=== PATIENT | female | born 1935 | race Caucasian/White ===

== ENCOUNTER 2016-06-27 11:22 | Emergency (ER) | payer OTHER ==
[~2016-06-27] VITALS: Ht 160 cm; Wt 99.8 kg
[~2016-06-27 11:22] MED LIST: CHOL100013 PO; FELO5TAB PO; HYDR-2666 PO; HYDR25TA9 PO; LEVO75TA5 PO; LOPE2CAP PO; MELO7.5T5 PO; MULT-650 PO; NYST60PO TP; ONDA4TAB12 PO; OXYC1TAB7 PO; OXYC5TAB PO; POTA20TA4 PO; WARF4TAB PO
[2016-06-27] MEDS ORDERED: IV NORMAL SALINE 1000ML BAG 1,000 ML IV SCH (12:35)
--- NOTE | 2016-06-27 12:36 | EKG ---
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
--- NOTE | 2016-06-27 12:43 | ED.ADGEN ---
Past Medical History Past Medical History: Arthritis, Hypertension, Hypothyroid, Other Additional Past Medical Histor: PAC'S, GASTRITIS, osteoarthritis R. shoulder and knee Past Surgical History: Knee Replacement, Other Alcohol Use: None Drug Use: None Adult General Chief Complaint Chief Complaint: WEAKNESS/GENERALIZED HPI HPI Patient is a 81 year old female presents emergency department complaining of generalized weakness as well as nausea and vomiting. Patient has had several recent hospitalizations and still was not recovered enough to return home and normal functioning. She tells me that beginning last night she started with nausea and vomiting again. She denies any abdominal pain or nausea at the moment. She states that she is still having formed stools which is great relief to her considering her recent hospitalization for diarrhea. Patient denies any fevers, chills, cough, chest pain. She is very concerned about possibly being dehydrated. Review of Systems Review of Systems Constitutional: Denies fever or chills. [] Eyes: Denies change in visual acuity. [] HENT: Denies nasal congestion or sore throat. [] Respiratory: Denies cough or shortness of breath. [] Cardiovascular: Denies chest pain or edema. [] GI: Denies abdominal pain, nausea, vomiting, bloody stools or diarrhea. [] : Denies dysuria. [] Musculoskeletal: Denies back pain or joint pain. [] Integument: Denies rash. [] Neurologic: Denies headache, focal weakness or sensory changes. [] Endocrine: Denies polyuria or polydipsia. [] Lymphatic: Denies swollen glands. [] Psychiatric: Denies depression or anxiety. [] Current Medications Current Medications Current Medications Medications (Trade) Dose Ordered Sig/Rosetta Start Time Stop Time Status Last Admin Dose Admin Ceftriaxone Sodium (Rocephin 1gm Ivpb For Omni) 50 ml @ 100 mls/hr 1X ONCE 06/27/16 13:30 06/27/16 13:59 DC 06/27/16 14:31 100 MLS/HR Sodium Chloride 1,000 ml @ 1,000 mls/hr Q1H 06/27/16 12:35 06/27/16 13:34 DC 06/27/16 13:04 1,000 MLS/HR Allergies Allergies Allergies Coded Allergies Type Severity Reaction Last Updated Verified influenza virus vaccine ts [id number] (36 mos+) Allergy Severe Shortness of Air 05/21/16 Yes Physical Exam Physical Exam Constitutional: Well developed, well nourished, no acute distress, non-toxic appearance. [] HENT: Normocephalic, atraumatic, bilateral external ears normal, oropharynx moist, no oral exudates, nose normal. [] Eyes: PERRLA, EOMI, conjunctiva normal, no discharge. [] Neck: Normal range of motion, no tenderness, supple, no stridor. [] Cardiovascular:Heart rate regular rhythm, no murmur [] Lungs & Thorax: Bilateral breath sounds clear to auscultation [] Abdomen: Bowel sounds normal, soft, no tenderness, no masses, no pulsatile masses. [] Skin: Warm, dry, no erythema, no rash. [] Back: No tenderness, no CVA tenderness. [] Extremities: No tenderness, no cyanosis, no clubbing, ROM intact, no edema. [] Neurologic: Alert and oriented X 3, normal motor function, normal sensory function, no focal deficits noted. [] Psychologic: Affect normal, judgement normal, mood normal. [] Current Patient Data Vital Signs Vital Signs Date Time Temp Pulse Resp B/P Pulse Ox O2 Delivery O2 Flow Rate FiO2 06/27/16 15:15 89 17 91/44 94 Nasal Cannula 2 06/27/16 11:30 99.7 99.7 Lab Values Laboratory Tests Test 06/27/16 11:45 06/27/16 12:15 Urine Collection Type Unknown Urine Color Kimberly Urine Clarity Cloudy Urine pH 5.5 Urine Specific [place] 1.020 Urine Protein Tracemg/dL (NEG-TRACE) Urine Glucose (UA) Negativemg/dL (NEG) Urine Ketones (Stick) Tracemg/dL (NEG) Urine Blood Moderate (NEG) Urine Nitrite Negative (NEG) Urine Bilirubin Small (NEG) Urine Urobilinogen Dipstick 0.2mg/dL (0.2 mg/dL) Urine Leukocyte Esterase Large (NEG) Urine RBC 3-5/HPF (0-2) Urine WBC >40/HPF (0-4) Urine Bacteria Many/HPF (0-FEW) Urine Mucus Slight/LPF White Blood Count 31.1x10^3/uL (4.0-11.0) H Red Blood Count 4.03x10^6/uL (3.50-5.40) Hemoglobin 10.1g/dL (12.0-15.5) L Hematocrit 32.1% (36.0-47.0) L Mean Corpuscular Volume 80fL (79-100) Mean Corpuscular Hemoglobin 25pg (25-35) Mean Corpuscular Hemoglobin Concent 32g/dL (31-37) Red Cell Distribution Width 16.3% (11.5-14.5) H Platelet Count 418x10^3/uL (140-400) H Neutrophils (%) (Auto) 89% (31-73) H Lymphocytes (%) (Auto) 4% (24-48) L Monocytes (%) (Auto) 7% (0-9) Eosinophils (%) (Auto) 0% (0-3) Basophils (%) (Auto) 0% (0-3) Neutrophils # (Auto) 27.6x10^3uL (1.8-7.7) H Lymphocytes # (Auto) 1.2x10^3/uL (1.0-4.8) Monocytes # (Auto) 2.2x10^3/uL (0.0-1.1) H Eosinophils # (Auto) 0.0x10^3/uL (0.0-0.7) Basophils # (Auto) 0.1x10^3/uL (0.0-0.2) Segmented Neutrophils % 77% (35-66) H Band Neutrophils % 14% (0-9) H Lymphocytes % 4% (24-48) L Monocytes % 4% (0-10) Basophils % 1% (0-3) Toxic Granulation Mod Toxic Vacuolation Mod Platelet Estimate Increased (ADEQUATE) Sodium Level 135mmol/L (136-145) L Potassium Level 4.0mmol/L (3.5-5.1) Chloride Level 95mmol/L (98-107) L Carbon Dioxide Level 30mmol/L (21-32) Anion Gap 10 (6-14) Blood Urea Nitrogen 24mg/dL (7-20) H Creatinine 1.5mg/dL (0.6-1.0) H Estimated GFR (Cockcroft-Gault) 33.5 Glucose Level 93mg/dL (70-99) Calcium Level 8.3mg/dL (8.5-10.1) L Total Bilirubin 0.5mg/dL (0.2-1.0) Direct Bilirubin 0.1mg/dL (0.0-0.2) Aspartate Amino Transferase (AST) 20U/L (15-37) Alanine Aminotransferase (ALT) 18U/L (14-59) Alkaline Phosphatase 120U/L (46-116) H Troponin I Quantitative 0.021ng/mL (0.000-0.055) Total Protein 6.1g/dL (6.4-8.2) L Albumin 2.5g/dL (3.4-5.0) L Laboratory Tests 06/27/16 12:15 Laboratory Tests 06/27/16 12:15 EKG EKG EKG interpreted by me, normal sinus rhythm, 97 beats for minute, leftward axis, no ST segment elevation. [] Radiology/Procedures Radiology/Procedures [] Course & Med Decision Making Course & Med Decision Making Pertinent Labs and Imaging studies reviewed. (See chart for details) The patient's workup here demonstrates a urinary tract infection. She does feel much better after IV fluids. She is requesting to be discharged home and to treat her urinary tract infection as an outpatient. I do not find this to be unreasonable. I did start her with a dose of Rocephin here prior to discharge. [] Dragon Disclaimer Dragon Disclaimer This electronic medical record was generated, in whole or in part, using a voice recognition dictation system. AMIRT JC MD Jun 27, 2016 12:43
[2016-06-27 12:51] LABS: BASO # 0.1 x10^3/uL (0.0-0.2); BASO % 0 % (0-3); EOS % 0 % (0-3); HEMATOCRIT 32.1 % (36.0-47.0); HEMOGLOBIN 10.1 g/dL (12.0-15.5); LYMPH # 1.2 x10^3/uL (1.0-4.8); LYMPH % 4 % (24-48); MEAN CORPUSCULAR HEMOGLOBIN 25 pg (25-35); MEAN CORPUSCULAR HGB CONC 32 g/dL (31-37); MEAN CORPUSCULAR VOLUME 80 fL (79-100); MONO % 7 % (0-9); NEUT % 89 % (31-73); PLATELET COUNT 418 x10^3/uL (140-400); RED BLOOD COUNT 4.03 x10^6/uL (3.50-5.40); RED CELL DISTRIBUTION WIDTH 16.3 % (11.5-14.5); WHITE BLOOD COUNT 31.1 x10^3/uL (4.0-11.0)
[2016-06-27 13:00] LABS: BILIRUBIN,URINE SMALL (NEG); GLUCOSE,URINE NEGATIVE (NEG); NITRITE,URINE NEGATIVE (NEG); PH,URINE 5.5; UROBILINOGEN,URINE 0.2 mg/dL (0.2 mg/dL)
[2016-06-27 13:03] LABS: CALCIUM 8.3 mg/dL (8.5-10.1); CREATININE 1.5 mg/dL (0.6-1.0); GFR 33.5
[2016-06-27 13:09] LABS: ALBUMIN 2.5 g/dL (3.4-5.0); DIRECT BILIRUBIN 0.1 mg/dL (0.0-0.2); TOTAL BILIRUBIN 0.5 mg/dL (0.2-1.0); TOTAL PROTEIN 6.1 g/dL (6.4-8.2)
[2016-06-27 13:15] LABS: PROTEIN,URINE TRACE mg/dL (NEG-TRACE)
[2016-06-27 13:16] LABS: BACTERIA,URINE MANY /HPF (0-FEW); WBC,URINE >40 /HPF (0-4)
[2016-06-27] MEDS ORDERED: CEFTRIAXONE 1GM IVPB FOR OMNI 50 ML IV ONE (13:30)
[2016-06-27] MEDS ORDERED: SULF1TAB24 PO (14:15)
[2016-06-27 15:15] VITALS: BP 91/44
[2016-06-27 16:17] LABS: % BASOS 1 % (0-3)
[2016-06-27 16:19] LABS: PLT ESTIMATE INCREASED (ADEQUATE); TOXIC GRANULATION MOD; TOXIC VACUOLATION MOD
== END 2016-06-27 15:15 | disposition home or self-care (01) ==
LOC: ER 11:22
DX: N39.0 Urinary tract infection, site not specified (principal); M19.90 Unspecified osteoarthritis, unspecified site; I10 Essential (primary) hypertension; E03.9 Hypothyroidism, unspecified; Z88.7 Allergy status to serum and vaccine
CPT/HCPCS: 36415; 80048; 80076; 81001; 84484; 85007; 85027; 93005; 96361; 96365; 99285; J0690; J7030; 87086

== ENCOUNTER → 2016-07-18 | Outpatient (CLI) | payer OTHER ==
[2016-06-27 15:15] VITALS: BP 91/44
[~2016-07-18] MED LIST changes: +ALPR0.25 PO; +HYDR-79 PO; +NAPR500T3 PO; +SULF1TAB24 PO
[2016-07-19 01:59] LABS: BF CLARITY TURBID; BF COLOR YELLOW
== END | disposition home or self-care (01) ==
LOC: SPEC 17:53
PROVIDERS: ATTEND Nurse Practitioner Gerontology
DX: M70.41 Prepatellar bursitis, right knee (principal)
CPT/HCPCS: 87071; 87075; 87205; 89050

== ENCOUNTER 2016-08-05 05:55 | Day surgery (SDC) | payer OTHER ==
[~2016-08-05] VITALS: Ht 160 cm; Wt 100.2 kg
[~2016-08-05 05:55] MED LIST changes: -HYDR-79 PO
[2016-08-05] MEDS ORDERED: CEFAZOLIN 1GM IVPB FOR OMNI 50 ML IV ONE (06:00)
[2016-08-05] MEDS ORDERED: PROPOFOL 20 ML IV ONE (06:46)
[2016-08-05] MEDS ORDERED: ONDANSETRON PF 4 MG/2 ML VIAL. ONE (06:46)
[2016-08-05] MEDS ORDERED: DEXAMETHASONE SOD PHOS 20 MG/5 ML VIAL. ONE (06:46)
[2016-08-05] MEDS ORDERED: LIDOCAINE 2% 100 MG/5 ML DISP.SYRIN. ONE (06:46)
[2016-08-05] MEDS ORDERED: MORPHINE SULFATE 2 MG/ML DISP.SYRIN. IV PRN (07:00)
[2016-08-05] MEDS ORDERED: ONDANSETRON PF 4 MG/2 ML VIAL. IV PRN (07:00)
[2016-08-05] MEDS ORDERED: LIDOCAINE 1% 1 ML SYRINGE. ID PRN (07:00)
[2016-08-05] MEDS ORDERED: HYDROMORPHONE 2 MG/ML VIAL. IV PRN (07:00)
[2016-08-05] MEDS ORDERED: FENTANYL PF 100 MCG/2 ML VIAL. IV PRN ×2 (07:00)
[2016-08-05] MEDS ORDERED: IV RINGERS,LACTATED 1000ML 1,000 ML IV SCH (07:00)
[2016-08-05] MEDS ORDERED: PROCHLORPERAZINE 10 MG/2 ML VIAL. IV PRN (07:00)
[2016-08-05] MEDS ORDERED: FENTANYL PF 100 MCG/2 ML VIAL. ONE (07:09)
[2016-08-05] MEDS ORDERED: SEVOFLURANE 61 TO 120 MINUTES. IH ONE (07:10)
--- NOTE | 2016-08-05 07:38 | DISCH ---
DISCHARGE INSTRUCTIONS Condition on Discharge Condition on Discharge: Stable Activity After Discharge Activity Instructions for Disc: Resume previous activity Other activity instructions: WBAT no activity restrictions Wound Incision Care Wound/Incision Care: Change dressing Other wound/incision instructi: remove dressing in 2 days, may shower if no drainage Community/Resources/Services Services at Discharge: PT EVALUATE & TREAT Contacting the DRJennifer after DC Call your doctor for: Concerns you may have Follow-Up Follow up with: Jef 10 days GERALDO MURPHY MD Aug 05, 2016 07:38
[2016-08-05] MEDS ORDERED: HYDR-79 PO (07:42)
[2016-08-05] MEDS ORDERED: PHENYLEPHRINE in 0.9% NACL PF 1 MG/10 ML DISP.SYRIN. IV ONE (07:43)
[2016-08-05] MEDS ORDERED: methylPREDNISolone ACETATE 80 MG/ML VIAL. ONE (07:51)
[2016-08-05] MEDS ORDERED: BUPIVACAINE MPF 0.5% 30 ML VIAL. ONE (07:51)
[2016-08-05] MEDS ORDERED: SULF1TAB24 PO (08:37)
--- NOTE | 2016-08-05 08:40 | PDOC ---
BRIEF OPERATIVE NOTE Date: Aug 05, 2016 Pre-Op Diagnosis infected prepatellar bursa right knee Post-Op Diagnosis same Procedure Performed arthroscopic debridement right prepatellar bursa Surgeon Jef Anesthesia Type: General Blood Loss 5cc Specimens Obtained intraop cultures of bursa Findings above Complications none GERALDO MURPHY MD Aug 05, 2016 08:40
[2016-08-05 10:02] VITALS: BP 120/55
--- NOTE | 2016-08-05 13:32 | OP ---
DATE OF SURGERY: 08/05/2016 PREOPERATIVE DIAGNOSES: Infected prepatellar bursa, right knee and right shoulder pain and DJD. POSTOPERATIVE DIAGNOSES: Infected prepatellar bursa, right knee and right shoulder pain and DJD. PROCEDURE: Include an arthroscopic irrigation and debridement of right prepatellar bursa and injection, right glenohumeral joint. SURGEON: Kenji Fuchs M.D. ANESTHESIA: General. ESTIMATED BLOOD LOSS: 5 mL. COMPLICATIONS: None. OPERATIVE INDICATIONS: The patient is a 81-year-old female who underwent fixation of a distal femur fracture on , she had recovered uneventfully with weightbearing as tolerated, but undergone a couple of subsequent hospital operations for respiratory issues and other nonrelated medical issues, recently within about 2 months or more postoperative had developed a little bit of swelling and drainage from her prepatellar bursa of her right knee, it is not painful, she can still bear weight, full range of motion of the knee, but this area was aspirated and she was placed on some oral antibiotics, but unfortunately had worsening of the prepatellar bursitis as she presented to the office, is concerned with the infection, although it is clearly not in the knee joint anatomically or clinically; however, I did describe the possibility of surgical treatment, typically arthroscopic treatment offers best visualization, both in terms of washing the area out, debriding any residual infected fluid and related synovial tissue and intraoperative cultures would be taken and she wishes to proceed with surgical evaluation and treatment and verbalizes understanding of risks, benefits, postoperative course. Initially due to anesthesia related concerns, she had preferred possibility of a regional block, but decided then to go to sleep on the day of surgery, again all her questions were answered. Consent was obtained and she wishes to proceed. OPERATIVE TECHNIQUE: The patient was identified, procedure verified, the patient placed in the supine position on the operating table. After adequate amounts of general anesthesia were administered, the right lower extremity was prepped and draped in standard sterile fashion with a thigh tourniquet, which was not inflated. After timeout was performed, patient and procedure identified and verified and arthroscopic portal was made anterior medial along her previous incision, which correspond to the area of her drainage from the prepatellar bursa. Cultures were obtained at that time, aerobic and anaerobic and were sent intraoperatively. A distal portal was made along the incision at the distal extent of the prepatellar bursa as well. On insertion of the arthroscope and floating the area with fluid, there was significant whitish inflammatory looking tissue that was flushed from the joint. The arthroscopic shaver was inserted and the synovial tissue and any infected fluid were thoroughly debrided. The shaver and viewing portal were then switched to ensure complete proximal debridement of the bursa. Synovectomy was performed of the entire bursa back to good bleeding healthy tissue with no devitalized tissue present, further thorough irrigation with arthroscopic fluid for a total of 6 L flushed through the knee during the process, this was an excisional debridement with the arthroscopic shaver to the level of prepatellar bursa. The arthroscopic fluid was then drained, nylon suture used to close the portals. Sterile dressings were applied. Attention was then turned to the right shoulder, which was sterilely prepped with ChloraPrep and 1 mL 80 mg/mL Depo-Medrol with 3 mL of 0.5% plain lidocaine were injected into the glenohumeral joint under an anterior approach. She was returned to recovery room in stable condition having tolerated the procedure well. KENJI FUCHS MD DR: JIMY/karen JOB#: [id number] / [id number] HANNAH Avina MD
== END 2016-08-05 10:11 | disposition home or self-care (01) ==
LOC: SURG 05:55
PROVIDERS: ATTEND Orthopaedic Surgery
DX: M19.011 Primary osteoarthritis, right shoulder (principal); M17.11 Unilateral primary osteoarthritis, right knee; M71.1 Other infective bursitis; E78.00 Pure hypercholesterolemia, unspecified; I10 Essential (primary) hypertension; F41.9 Anxiety disorder, unspecified; E03.9 Hypothyroidism, unspecified; E66.9 Obesity, unspecified; Z87.39 Personal history of other diseases of the musculoskeletal system and connective tissue; Z96.651 Presence of right artificial knee joint
CPT/HCPCS: 20610; 29877; 87071; 87075; 87205; 97161; J0690; J1040; J1100; J2405; J2704; J3010; J3490; J2370

== ENCOUNTER 2016-08-30 13:54 | Day surgery (SDC) | payer OTHER ==
[~2016-08-30] VITALS: Ht 160 cm; Wt 100.0 kg
[~2016-08-30 13:54] MED LIST changes: +CEFAZOLIN 1GM IVPB FOR OMNI 50 ML IV PRN; +FENTANYL PF 100 MCG/2 ML VIAL. IV PRN; +HYDR-79 PO; +IV RINGERS,LACTATED 1000ML 1,000 ML IV SCH; +LIDOCAINE 1% 1 ML SYRINGE. ID PRN; +ONDANSETRON PF 4 MG/2 ML VIAL. IV PRN; +PROCHLORPERAZINE 10 MG/2 ML VIAL. IV PRN
[2016-08-30] MEDS ORDERED: PROPOFOL 20 ML IV ONE (14:04)
[2016-08-30] MEDS ORDERED: ONDANSETRON PF 4 MG/2 ML VIAL. ONE (14:04)
[2016-08-30] MEDS ORDERED: DEXAMETHASONE SOD PHOS 20 MG/5 ML VIAL. ONE (14:04)
[2016-08-30] MEDS ORDERED: LIDOCAINE 2% 100 MG/5 ML SYRINGE. ONE (14:04)
[2016-08-30] MEDS ORDERED: FENTANYL PF 100 MCG/2 ML VIAL. ONE (14:05)
[2016-08-30] MEDS ORDERED: LACT1CAP8 PO (14:52)
[2016-08-30] MEDS ORDERED: CEFAZOLIN 2GM PREMIX 50 ML IV ONE (15:02)
[2016-08-30] MEDS ORDERED: EPHEDRINE PF IN SALINE 50 MG/5 ML DISP.SYRIN. IV ONE (16:13)
[2016-08-30] MEDS ORDERED: SEVOFLURANE 31 TO 60 MINUTES. IH ONE (16:44)
--- NOTE | 2016-08-30 17:10 | DISCH ---
DISCHARGE INSTRUCTIONS Condition on Discharge Condition on Discharge: Stable Activity After Discharge Activity Instructions for Disc: Resume previous activity Diet after Discharge Diet after Discharge: Regular Wound Incision Care Wound/Incision Care: Ice to area for comfort, Change dressing Other wound/incision instructi: may change dressing in 3 days, keep covered for shower Contacting the DRJennifer after DC Call your doctor for: Concerns you may have Follow-Up Follow up with: Jef 1 week GERALDO MURPHY MD Aug 30, 2016 17:10
[2016-08-30] MEDS: FENTANYL PF 100 MCG/2 ML VIAL. IV PRN ×3 (17:12→17:32)
--- NOTE | 2016-08-30 17:18 | PDOC ---
BRIEF OPERATIVE NOTE Date: Aug 30, 2016 Pre-Op Diagnosis refractory prepatellar bursitis Post-Op Diagnosis same with small communication to knee joint Procedure Performed I/d right knee prepatellar bursa and knee joint with cultures of each Surgeon Jef Anesthesia Type: General Blood Loss 25cc Specimens Obtained intraop cultures Findings above Complications none GERALDO MURPHY MD Aug 30, 2016 17:18
[2016-08-30] MEDS ORDERED: ONDANSETRON PF 4 MG/2 ML VIAL. IV PRN (18:15)
[2016-08-30] MEDS ORDERED: FENTANYL PF 100 MCG/2 ML VIAL. IV PRN ×2 (18:15)
[2016-08-30] MEDS ORDERED: HYDROCODON/IBUPROFEN 7.5/200MG TABLET. PO ONE (19:15)
[2016-08-30 19:35] VITALS: BP 132/56
--- NOTE | 2016-08-31 10:42 | OP ---
DATE OF SURGERY: 08/30/2016 PREOPERATIVE DIAGNOSIS: Persistent drainage from right prepatellar bursa with possible infection. POSTOPERATIVE DIAGNOSIS: Persistent drainage from right prepatellar bursa with possible infection with concern for communication to knee joint and prosthesis. PROCEDURE: First irrigation and debridement and cultures of patellar bursa and irrigation and debridement of right knee joint also with deep tissue cultures obtained. SURGEON: Kenji Fuchs M.D. ANESTHESIA: General. ESTIMATED BLOOD LOSS: 25 mL. COMPLICATIONS: None. OPERATIVE INDICATIONS: The patient is well known to me from fixation of a distal femoral shaft fracture ____ knee arthroplasty on the right on . She did appear to recover well from that injury and was weightbearing as tolerated. Her incision healed up without incident and continued to progress through physical therapy. She did have some other medical setbacks along the way and presented a little over 2 months out from the fracture and surgery with some drainage from her prepatellar bursa. It really did not appear to be red or necessarily infected in appearance. Some initial nonoperative management was carried out although she had persistent drainage. Subsequently, due to her persistent drainage and she had been put on through a course of antibiotics in the interim without success, an arthroscopic irrigation and debridement of the prepatellar bursa and bursectomy was carried out. At that time there was no significant concern for infection regarding her cultures and no evidence whatsoever of communication with her knee joint, the ____ arthroscopic portals went on to heal. She had a small area of persistent drainage at the center of the incision through a pinhole where some clear drainage and fibrinous exudate could be expressed. At her visit where this was happening, discussed alternatives with her. She had been on several course of antibiotics at that time and really is having no pain or symptoms whatsoever with the knee, was actually having pain in the other knee and her right shoulder, which had been symptomatic for some time, and both of which had been previously injected due to her symptoms. Nevertheless, despite additional nonoperative treatment with compression and dressings, she continued to have drainage, and I told her that I was concerned for the possibility of indolent infection and I think an additional operative procedure would be indicated as I do have concerns that we do not want to harbor any additional infection with the presence of a knee prosthesis present. She therefore agreed to proceed with surgical evaluation and treatment today. OPERATIVE TECHNIQUE: The patient was identified, procedure verified, patient placed in the supine position on the operating table. After adequate amounts of general anesthesia were administered, the right lower extremity was prepped and draped in standard sterile fashion. After timeout was performed, the patient and procedure identified and verified, an incision was made along the previous area of scar incorporating the draining pinhole area. Cultures were immediately obtained of the prepatellar bursa and the fibrinous exudate was thoroughly debrided sharply with rongeurs and any excess tissue removed. There was no devitalized tissue present or galileo evidence of infection. Thorough irrigation was carried out with normal saline solution and pulse lavage to thoroughly irrigate the area and then I very thoroughly probed for any possible communication to the knee joint. There was one soft area along the medial retinaculum of potential communication and therefore I underwent further irrigation with pulse lavage to clean the area of the bursas thoroughly as possible and avoid any transference into the knee joint itself and then debrided this area of the retinaculum as it was a potential path to the knee joint itself. The knee joint was then opened and separate deep tissue cultures were obtained. I really found no evidence of prosthetic loosening or gross contamination in the knee joint itself, certainly no devitalized tissue, odor or purulent-type drainage whatsoever. Thorough irrigation was carried out with normal saline solution and pulse lavage. The area was thoroughly explored and closure accomplished with PDS suture at the retinacular area, buried PDS subcutaneous, and nylon suture at the skin level. Sterile compressive dressings were applied. The patient was extubated and transferred to postop holding in stable condition having tolerated the procedure well. I did indicate to her and her sister who was with her to surgery today the findings of the possibility of potential infection of the prosthetic, that we would follow along cultures to really gain a better understanding of her situation and the alternatives and the tentative issue that at this time she really has a significant amount of metal that it would be necessary to be retained specifically while the distal femur fracture appears to be doing very well even in the situation of removing a prosthesis to eradicate infection if necessary, I would be very conscious in terms of removing the retrograde femoral nail at this time, but I do not think addressing one without the other would be efficacious. Therefore, again we may be facing some type of antibiotic course maybe even along with suppressive antibiotics depending on any results and discussing the alternatives regardless she tolerated the procedure well and was placed on Bactrim postoperatively as a precautionary measure. KENJI FUCHS MD DR: JIMY/karen JOB#: [id number] / [id number] HANNAH Avina MD
== END 2016-08-30 19:40 | disposition home or self-care (01) ==
LOC: SURG 13:54
PROVIDERS: ATTEND Orthopaedic Surgery
DX: M96.89 Other intraoperative and postprocedural complications and disorders of the musculoskeletal system (principal); E78.00 Pure hypercholesterolemia, unspecified; I10 Essential (primary) hypertension; E66.9 Obesity, unspecified; K21.9 Gastro-esophageal reflux disease without esophagitis; E03.9 Hypothyroidism, unspecified; F41.9 Anxiety disorder, unspecified; Z90.710 Acquired absence of both cervix and uterus
CPT/HCPCS: 27310; 87205; J0690; J0780; J1100; J2405; J2704; J3010; J7030

== ENCOUNTER 2016-12-09 06:15 | Observation (INO) | payer OTHER ==
[~2016-12-09] VITALS: Ht 160 cm; Wt 97.1 kg
[~2016-12-09 06:15] MED LIST changes: -CEFAZOLIN 1GM IVPB FOR OMNI 50 ML IV PRN; -FENTANYL PF 100 MCG/2 ML VIAL. IV PRN; -HYDR-2666 PO; +HYDR-2758 PO; -IV RINGERS,LACTATED 1000ML 1,000 ML IV SCH; +LACT1CAP8 PO; -LIDOCAINE 1% 1 ML SYRINGE. ID PRN; -ONDANSETRON PF 4 MG/2 ML VIAL. IV PRN; -PROCHLORPERAZINE 10 MG/2 ML VIAL. IV PRN; -WARF4TAB PO; +WARF4TAB68 PO
--- NOTE | 2016-12-09 06:18 | PHYS DOC ---
Past Medical History Past Medical History: Arthritis, Hypertension, Hypothyroid, Other Additional Past Medical Histor: PAC'S, GASTRITIS, osteoarthritis R. shoulder and knee Past Surgical History: Knee Replacement, Other Alcohol Use: None Drug Use: None Adult General Chief Complaint Chief Complaint: RECTAL BLEED [facility] HPI Patient is a 81 year old female who presents with rectal bleeding. She states she's had a history of this before and has a diverticulum that was bleeding a year ago in addition to internal and external hemorrhoids. She states 2 days ago she had a little bit of blood when she wiped it was bright red and then overnight she's had 7-9 bloody bowel movements with some clots in it. She states she's not had a lot of stool. She denies any abdominal pain nausea vomiting chest pain or shortness of breath. She denies any history of aspirin use. She states she's had colonoscopy around [address] Branch up and then last time she was admitted a year ago was seen by Dr. Shin. Review of Systems Review of Systems Constitutional: Denies fever or chills [] Eyes: Denies change in visual acuity, redness, or eye pain [] HENT: Denies nasal congestion or sore throat [] Respiratory: Denies cough or shortness of breath [] Cardiovascular: No additional information not addressed in HPI [] GI: Denies abdominal pain, nausea, vomiting, or diarrhea, positive for bloody stools[] : Denies dysuria or hematuria [] Musculoskeletal: Denies back pain or joint pain [] Integument: Denies rash or skin lesions [] Neurologic: Denies headache, focal weakness or sensory changes [] Endocrine: Denies polyuria or polydipsia [] Allergies Allergies Allergies Coded Allergies Type Severity Reaction Last Updated Verified influenza virus vaccine ts [id number] (36 mos,up) Allergy Severe Shortness of Air 08/29/16 Yes oxycodone Allergy Intermediate Itching 08/29/16 Yes Physical Exam Physical Exam Constitutional: Well developed, well nourished, no acute distress, non-toxic appearance. [] HENT: Normocephalic, atraumatic, bilateral external ears normal, oropharynx moist, no oral exudates, nose normal. [] Eyes: PERRLA, EOMI, conjunctiva normal, no discharge. [] Neck: Normal range of motion, no tenderness, supple, no stridor. [] Cardiovascular:Heart rate regular rhythm, no murmur [] Lungs & Thorax: Bilateral breath sounds clear to auscultation [] Abdomen/rectal exam: Bowel sounds normal, soft, no tenderness, no masses, no pulsatile masses. External hemorrhoids noted, normal tone, dark red blood without any stool noted on rectal exam Skin: Warm, dry, no erythema, no rash. [] Back: No tenderness, no CVA tenderness. [] Extremities: No tenderness, no cyanosis, no clubbing, ROM intact, no edema. [] Neurologic: Alert and oriented X 3, normal motor function, normal sensory function, no focal deficits noted. [] Psychologic: Affect normal, judgement normal, mood normal. [] Current Patient Data Vital Signs Vital Signs Date Time Temp Pulse Resp B/P (MAP) Pulse Ox O2 Delivery O2 Flow Rate FiO2 12/09/16 06:59 98 18 135/84 (101) 94 Room Air 12/09/16 06:37 98.3 98.3 Lab Values Laboratory Tests Test 12/09/16 06:18 12/09/16 06:30 12/09/16 06:45 White Blood Count 11.8 x10^3/uL (4.0-11.0) H Red Blood Count 3.94 x10^6/uL (3.50-5.40) Hemoglobin 9.5 g/dL (12.0-15.5) L Hematocrit 29.0 % (36.0-47.0) L Mean Corpuscular Volume 74 fL (79-100) L Mean Corpuscular Hemoglobin 24 pg (25-35) L Mean Corpuscular Hemoglobin Concent 33 g/dL (31-37) Red Cell Distribution Width 17.7 % (11.5-14.5) H Platelet Count 510 x10^3/uL (140-400) H Neutrophils (%) (Auto) 67 % (31-73) Lymphocytes (%) (Auto) 20 % (24-48) L Monocytes (%) (Auto) 10 % (0-9) H Eosinophils (%) (Auto) 2 % (0-3) Basophils (%) (Auto) 1 % (0-3) Neutrophils # (Auto) 7.9 x10^3uL (1.8-7.7) H Lymphocytes # (Auto) 2.3 x10^3/uL (1.0-4.8) Monocytes # (Auto) 1.2 x10^3/uL (0.0-1.1) H Eosinophils # (Auto) 0.3 x10^3/uL (0.0-0.7) Basophils # (Auto) 0.1 x10^3/uL (0.0-0.2) Stool Occult Blood Positive (NEG) Urine Collection Type Unknown Urine Color Yellow Urine Clarity Cloudy Urine pH 5.0 Urine Specific [place] >=1.030 Urine Protein Negative mg/dL (NEG-TRACE) Urine Glucose (UA) Negative mg/dL (NEG) Urine Ketones (Stick) Negative mg/dL (NEG) Urine Blood Negative (NEG) Urine Nitrite Negative (NEG) Urine Bilirubin Small (NEG) Urine Urobilinogen Dipstick 0.2 mg/dL (0.2 mg/dL) Urine Leukocyte Esterase Moderate (NEG) Urine RBC 0 /HPF (0-2) Urine WBC 11-20 /HPF (0-4) Urine Squamous Epithelial Cells Occ /LPF Urine Bacteria Moderate /HPF (0-FEW) Urine Hyaline Casts Moderate /HPF Urine Mucus Marked /LPF Prothrombin Time 13.4 SEC (11.7-14.0) Prothrombin Time INR 1.1 (0.8-1.1) PTT 33 SEC (24-38) Sodium Level 138 mmol/L (136-145) Potassium Level 3.7 mmol/L (3.5-5.1) Chloride Level 99 mmol/L (98-107) Carbon Dioxide Level 27 mmol/L (21-32) Anion Gap 12 (6-14) Blood Urea Nitrogen 27 mg/dL (7-20) H Creatinine 1.1 mg/dL (0.6-1.0) H Estimated GFR (Cockcroft-Gault) 47.9 Glucose Level 122 mg/dL (70-99) H Calcium Level 9.4 mg/dL (8.5-10.1) Total Bilirubin 0.3 mg/dL (0.2-1.0) Direct Bilirubin 0.1 mg/dL (0.0-0.2) Aspartate Amino Transferase (AST) 15 U/L (15-37) Alanine Aminotransferase (ALT) 13 U/L (14-59) L Alkaline Phosphatase 92 U/L (46-116) Total Protein 8.4 g/dL (6.4-8.2) H Albumin 3.2 g/dL (3.4-5.0) L Laboratory Tests 12/09/16 06:18 Laboratory Tests 12/09/16 06:45 EKG EKG [] Radiology/Procedures Radiology/Procedures [] Impressions: Lower GI bleed Course & Med Decision Making Course & Med Decision Making Pertinent Labs and Imaging studies reviewed. (See chart for details) Vitals are stable this time. Rectal exam shows darker blood, labs are stable. We 'll admit to Dr. Jordan and consult GI. Patient is requesting Dr. Fuchs for right shoulder pain that she's been following him for. Patient's agreeable to the plan and being admitted in stable condition at this time. Dragon Disclaimer Dragon Disclaimer This electronic medical record was generated, in whole or in part, using a voice recognition dictation system. Departure Departure Impression: Primary Impression: GI bleed Disposition: ADMITTED INPATIENT Admitting Physician: Flores Jordan Condition: STABLE Referrals: HANNAH ECHEVARRIA Jr, MD (PCP) Problem Qualifiers Primary Impression: GI bleed GI bleed type/associated pathology: unspecified gastrointestinal hemorrhage type Qualified Codes: K92.2 - Gastrointestinal hemorrhage, unspecified PARIS DE LA TORRE MD Dec 09, 2016 06:18
[2016-12-09 06:59] LABS: NEG OBC FOB NEG; POS OBC FOB POS
[2016-12-09 07:01] LABS: BILIRUBIN,URINE SMALL (NEG); GLUCOSE,URINE NEGATIVE (NEG); NITRITE,URINE NEGATIVE (NEG); PROTEIN,URINE NEGATIVE (NEG-TRACE); UROBILINOGEN,URINE 0.2 mg/dL (0.2 mg/dL)
[2016-12-09 07:05] LABS: BASO # 0.1 x10^3/uL (0.0-0.2); BASO % 1 % (0-3); EOS % 2 % (0-3); HEMOGLOBIN 9.5 g/dL (12.0-15.5); LYMPH # 2.3 x10^3/uL (1.0-4.8); LYMPH % 20 % (24-48); MEAN CORPUSCULAR HEMOGLOBIN 24 pg (25-35); MEAN CORPUSCULAR HGB CONC 33 g/dL (31-37); MEAN CORPUSCULAR VOLUME 74 fL (79-100); MONO % 10 % (0-9); NEUT % 67 % (31-73); PLATELET COUNT 510 x10^3/uL (140-400); RED BLOOD COUNT 3.94 x10^6/uL (3.50-5.40); RED CELL DISTRIBUTION WIDTH 17.7 % (11.5-14.5); WHITE BLOOD COUNT 11.8 x10^3/uL (4.0-11.0)
[2016-12-09 07:14] LABS: CALCIUM 9.4 mg/dL (8.5-10.1); CREATININE 1.1 mg/dL (0.6-1.0); GFR 47.9; POTASSIUM 3.7 mmol/L (3.5-5.1)
[2016-12-09 07:20] LABS: ALBUMIN 3.2 g/dL (3.4-5.0); DIRECT BILIRUBIN 0.1 mg/dL (0.0-0.2); TOTAL BILIRUBIN 0.3 mg/dL (0.2-1.0); TOTAL PROTEIN 8.4 g/dL (6.4-8.2)
[2016-12-09 07:31] LABS: BACTERIA,URINE MODERATE /HPF (0-FEW); RBC,URINE 0 /HPF (0-2); SQUAMOUS EPITHELIAL CELL,UR OCC /LPF
[2016-12-09 07:50] LABS: INR 1.1 (0.8-1.1); PROTHROMBIN TIME PATIENT 13.4 SEC (11.7-14.0)
[2016-12-09] MEDS: ONDANSETRON PF 4 MG/2 ML VIAL. IV PRN (08:01)
[2016-12-09 08:51] VITALS: BP 132/73
[2016-12-09] MEDS ORDERED: ONDANSETRON ODT 4 MG TAB.RAPDIS. PO PRN (09:00)
--- NOTE | 2016-12-09 09:37 | PDOC2 ---
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 H/ o possible diverticular bleed a couple years ago, evaluated by Dr. Kalie Moser at [facility] w/ follow-up EGD and colonoscopy by Dr. Serra in 09/2014 which showed esophagitis (suspect for Lucia's but she reports biopsies were negative), gastritis, and normal duodenum. Colonoscopy showed a moderate amount of soft stool, diverticulosis (left > right - she reports most significant in the descending colon), and external and internal hemorrhoids. Anusol suppositories were recommended but expensive, so she uses Tucks PRN. She returned to [facility] in 04/2016 for rectal bleeding precipitated by straining. Bleeding resolved spontaneously. We then saw her in 05/2016 for vomiting and diarrhea which began after eating a questionable hamburger. Stool studies were negative and diarrhea eventually resolved; she did call the office after discharge and was started on Colestipol (no longer needed). On this occasion came to ER for rectal bleeding since yesterday morning which again occurred after straining and passing large hard stools x 2 days despite use of Benefiber. She describes passage of bright red blood w/ gas yesterday morning which recurred around midnight and several more times during the night. Has rectal burning. She did pas gas twice in the ER w/o blood. ER notes indicate rectal exam revealed maroon blood. Denies abd pain. No n/v, SOA, CP. Did have weight loss at the first of the year. Has used Prilosec and Zantac PRN in the past, not needed now. Takes Naproxen 2 BID + Tylenol scheduled for arthritis pain. Hgb 9.5 (seems typically 9-10 range), BUN 27, Cr 1.1, hemoccult positive stool. PMH: PMH: diverticulosis, reflux esophagitis, gastritis, hemorrhoids, anal fissure, HTN, hypothyroidism, PACs, OA, anxiety, adhesiolysis, appendectomy, total hysterectomy, right knee replacement, bilateral cataract extraction, femur fracture/repair FH: Family History: Cancer (lung), CVA Social History: Smoke: No ALCOHOL: none Drugs: None ROS: GEN: Denies fevers, chills, sweats HEENT: Denies blurred vision, sore throat CV: Denies chest pain RESP: Denies shortness of air, cough GI: Per HPI : Denies hematuria, dysuria ENDO: Denies weight changes NEURO: Denies confusion, dizziness MSK: Denies weakness, joint pain/swelling SKIN: Denies jaundice, pruritus Vitals: Vitals: Vital Signs Date Time Temp Pulse Resp B/P (MAP) Pulse Ox O2 Delivery O2 Flow Rate FiO2 12/09/16 08:51 98.2 72 20 132/73 (92) 93 Room Air 98.2 Labs: Labs: Laboratory Tests Test 12/09/16 06:18 12/09/16 06:30 12/09/16 06:45 White Blood Count 11.8 x10^3/uL (4.0-11.0) Red Blood Count 3.94 x10^6/uL (3.50-5.40) Hemoglobin 9.5 g/dL (12.0-15.5) Hematocrit 29.0 % (36.0-47.0) Mean Corpuscular Volume 74 fL (79-100) Mean Corpuscular Hemoglobin 24 pg (25-35) Mean Corpuscular Hemoglobin Concent 33 g/dL (31-37) Red Cell Distribution Width 17.7 % (11.5-14.5) Platelet Count 510 x10^3/uL (140-400) Neutrophils (%) (Auto) 67 % (31-73) Lymphocytes (%) (Auto) 20 % (24-48) Monocytes (%) (Auto) 10 % (0-9) Eosinophils (%) (Auto) 2 % (0-3) Basophils (%) (Auto) 1 % (0-3) Neutrophils # (Auto) 7.9 x10^3uL (1.8-7.7) Lymphocytes # (Auto) 2.3 x10^3/uL (1.0-4.8) Monocytes # (Auto) 1.2 x10^3/uL (0.0-1.1) Eosinophils # (Auto) 0.3 x10^3/uL (0.0-0.7) Basophils # (Auto) 0.1 x10^3/uL (0.0-0.2) Stool Occult Blood Positive (NEG) Urine Collection Type Unknown Urine Color Yellow Urine Clarity Cloudy Urine pH 5.0 Urine Specific [place] >=1.030 Urine Protein Negative mg/dL (NEG-TRACE) Urine Glucose (UA) Negative mg/dL (NEG) Urine Ketones (Stick) Negative mg/dL (NEG) Urine Blood Negative (NEG) Urine Nitrite Negative (NEG) Urine Bilirubin Small (NEG) Urine Urobilinogen Dipstick 0.2 mg/dL (0.2 mg/dL) Urine Leukocyte Esterase Moderate (NEG) Urine RBC 0 /HPF (0-2) Urine WBC 11-20 /HPF (0-4) Urine Squamous Epithelial Cells Occ /LPF Urine Bacteria Moderate /HPF (0-FEW) Urine Hyaline Casts Moderate /HPF Urine Mucus Marked /LPF Prothrombin Time 13.4 SEC (11.7-14.0) Prothromb Time International Ratio 1.1 (0.8-1.1) Activated Partial Thromboplast Time 33 SEC (24-38) Sodium Level 138 mmol/L (136-145) Potassium Level 3.7 mmol/L (3.5-5.1) Chloride Level 99 mmol/L (98-107) Carbon Dioxide Level 27 mmol/L (21-32) Anion Gap 12 (6-14) Blood Urea Nitrogen 27 mg/dL (7-20) Creatinine 1.1 mg/dL (0.6-1.0) Estimated GFR (Cockcroft-Gault) 47.9 Glucose Level 122 mg/dL (70-99) Calcium Level 9.4 mg/dL (8.5-10.1) Total Bilirubin 0.3 mg/dL (0.2-1.0) Direct Bilirubin 0.1 mg/dL (0.0-0.2) Aspartate Amino Transf (AST/SGOT) 15 U/L (15-37) Alanine Aminotransferase (ALT/SGPT) 13 U/L (14-59) Alkaline Phosphatase 92 U/L (46-116) Total Protein 8.4 g/dL (6.4-8.2) Albumin 3.2 g/dL (3.4-5.0) Allergies: Coded Allergies: influenza virus vaccine ts [id number] (36 mos,up) (Verified Allergy, Severe , Shortness of Air, 08/29/16) oxycodone (Verified Allergy, Intermediate, Itching, 08/29/16) Medications: Current Medications Medications (Trade) Dose Ordered Sig/[place] Route PRN Reason Start Time Stop Time Status Last Admin Dose Admin Ondansetron HCl (Zofran) 4 mg PRN Q8HRS PRN IV NAUSEA/VOMITING 12/09/16 07:45 12/10/16 07:44 12/09/16 08:01 Imaging: Imaging: - PE: GEN: NAD HEENT: Atraumatic, PERRL LUNGS: CTAB anteriorly HEART: RRR ABD: NABS, S/ND/NT EXTREMITY: No edema SKIN: No rashes, no jaundice NEURO/PSYCH: A & O 3 A/P: A/P: Rectal bleeding -recurrent; first episode in 2014 thought to be diverticular, last episode in 2016 possibly hemorrhoidal -associated w/ straining -began yesterday morning w/ passing gas, seems resolved Anemia, hemoccult positive stool -Hgb 9.5 (not outside her typical range) -EGD and colonoscopy 2014: esophagitis (suspect for Lucia's but she reports biopsies were negative), gastritis, normal duodenum, moderate amount of soft stool, diverticulosis (left > right - she reports most significant in the descending colon), external/internal hemorrhoids NSAID use -- Recurrent rectal bleeding w/ last colonoscopy ~2 years ago. Possibly related to hemorrhoids considering significant straining and passage of hard stool. Has cardiac diet ordered - would keep to clears for now. Discussed regular use of Miralax/similar to prevent constipation. 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 MELANIE PAYNE Dec 09, 2016 09:37
--- NOTE | 2016-12-09 10:10 | PDOC1 ---
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 TAkes dilaudid 2 mgs PO prn for OA pain. NOw, Rt shoulder is bothersome, limited ROM, requested ortho , BRBP when wiping with tissue Today on floor, 3x flatus, no blood. Admits to known diverticulosis in the past, takes bowel regimen oTC prn only. Gi has seen, recommended daily regimen miralax.LAst decent BM of brown colored stool was 2 days ago SOme extrenal hemorrhoid on PRAMOD, Admitted as OBS - agree Past Medical History Cardiovascular: HTN Pulmonary: No pertinent hx GI: Diverticulosis, Other Heme/Onc: No pertinent hx Hepatobiliary: No pertinent hx Psych: No pertinent hx Musculoskeletal: Osteoarthritis Rheumatologic: No pertinent hx Infectious disease: No pertinent hx Renal/: No pertinent hx Endocrine: No pertinent hx, Hypothyroidism Past Surgical History Past Surgical History: Total knee replacement, Hysterectomy, Other Family History Family History: Cancer Social History Smoke: No ALCOHOL: none Drugs: None Current Problem List Problem List Problems Medical Problems: (1) GI bleed Status: Acute Problems: Current Medications Current Medications Current Medications Ondansetron HCl (Zofran) 4 mg PRN Q8HRS PRN IV NAUSEA/VOMITING Last administered on 12/09/16t 08:01; Start 12/09/16 at 07:45; Stop 12/10/16 at 07:44 Alprazolam (Xanax) 0.25 mg PRN Q6HRS PRN PO ANXIETY / AGITATION; Start at 09:00 Hydrochlorothiazide (Hydrodiuril) 25 mg DAILY PO ; Start 12/09/16 at 09:00 Levothyroxine Sodium (Synthroid) 75 mcg DAILYAC PO ; Start 12/09/16 at 09:00 Ondansetron HCl (Zofran Odt) 4 mg PRN Q8HRS PRN PO NAUSEA/VOMITING; Start 12/09 at 09:00 Vitamin D (Vitamin D3) 1,000 unit DAILY PO ; Start 12/09/16 at 09:00 Amlodipine Besylate (Norvasc) 5 mg DAILY PO ; Start 12/09/16 at 09:00 Lactobacillus Acidophilus (Bacid, Julissa-Bid) 1 tab DAILY PO ; Start 12/09/16 at 09:00 Multivitamins (Thera M Plus) 1 tab DAILY PO ; Start 12/09/16 at 09:00 Pantoprazole Sodium (Protonix) 40 mg DAILYAC PO ; Start 12/09/16 at 10:00 Polyethylene Glycol (miraLAX PACKET) 17 gm DAILY PO ; Start 12/09/16 at 10:00 Active Scripts Active Hydrocodone-Ibuprofen 7.5-200 (Hydrocodone/Ibuprofen) 1 Each Tablet 1 Tab PO PRN Q6HRS PRN Ondansetron Odt (Ondansetron) 4 Mg Tab.rapdis 4 Mg PO PRN Q8HRS PRN Reported Probiotic (Lactobacillus Combo No.11) 1 Each Cap.sprink 1 Each PO DAILY Xanax (Alprazolam) 0.25 Mg Tablet 0.25 Mg PO PRN Q6HRS PRN Centrum Silver Women Tablet (Multivits-Min/Iron/FA/Lutein) 1 Each Tablet 1 Each PO DAILY Vitamin D (Cholecalciferol (Vitamin D3)) 1,000 Unit Capsule 1 Cap PO DAILY Felodipine Er (Felodipine) 5 Mg Tab.er.24h 1 Tab PO DAILY Levothyroxine Sodium 75 Mcg Tablet 75 Mcg PO DAILYAC Hydrochlorothiazide Tablet (Hydrochlorothiazide) 25 Mg Tablet 25 Mg PO DAILY Allergies Allergies: Coded Allergies: influenza virus vaccine ts [id number] (36 mos,up) (Verified Allergy, Severe , Shortness of Air, 08/29/16) oxycodone (Verified Allergy, Intermediate, Itching, 08/29/16) ROS General: No: Chills, Night Sweats, Fatigue, Malaise, Appetite, Other PSYCHOLOGICAL ROS: No: Anxiety, Behavioral Disorder, Concentration difficultie , Decreased libido, Depression, Disorientation, Hallucinations, Hostility, Irritablity, Memory difficulties, Mood Swings, Obsessive thoughts, Physical abuse, Sexual abuse, Sleep disturbances, Suicidal ideation, Other Eyes: No Blurry vision, No Decreased vision, No Double vision, No Dry eyes, No Excessive tearing, No Eye Pain, No Itchy Eyes, No Loss of vision, No Photophobia , No Scotomata, No Uses contacts, No Uses glasses, No Other HEENT: No: Heacaches, Visual Changes, Hearing change, Nasal congestion, Nasal discharge, Oral lesions, Sinus pain, Sore Throat, Epistaxis, Sneezing, Snoring, Tinnitus, Vertigo, Vocal changes, Other ALLERGY AND IMMUNOLOGY: No: Hives, Insect Bite Sensitivity, Itchy/Watery Eyes, Nasal Congestion, Post Nasal Drip, Seasonal Allergies, Other Hematological and Lymphatic: No: Bleeding Problems, Blood Clots, Blood Transfusions, Brusing, Night Sweats, Pallor, Swollen Lymph Nodes, Other ENDOCRINE: No: Breast Changes, Galactorrhea, Hair Pattern Changes, Hot Flashes , Malaise/lethargy, Mood Swings, Palpitations, Polydipsia/polyuria, Skin Changes , Temperature Intolerance, Unexpected Weight Changes, Other Breast: No New/Changing Breast Lumps, No Nipple changes, No Nipple discharge, No Other Respiratory: No: Cough, Hemoptysis, Orthopnea, Pleuritic Pain, Shortness of breath, SOB with excertion, Sputum Changes, Stridor, Tachypnea, Wheezing, Other Cardiovascular: No Chest Pain, No Palpitations, No Orthopnea, No Paroxysmal Noc. Dyspnea, No Edema, No Lt Headedness, No Other Gastrointestinal: Yes Constipation, Yes Hematochezia Genitourinary: No Dysuria, No Frequency, No Incontinence, No Hematuria, No Retention, No Discharge, No Urgency, No Pain, No Flank Pain, No Other, No , No , No , No , No , No , No Musculoskeletal: Yes Joint Pain, Yes Joint Stiffness, Yes Pain In: (Rt shoulder ), Yes Swelling In: Neurological: No Behavorial Changes, No Bowel/Bladder ControlChng, No Confusion , No Dizziness, No Gait Disturbance, No Headaches, No Impaired Coord/balance, No Memory Loss, No Numbness/Tingling, No Seizures, No Speech Problems, No Tremors, No Visual Changes, No Weakness, No Other Skin: No Dry Skin, No Eczema, No Hair Changes, No Lumps, No Mole Changes, No Mottling, No Nail Changes, No Pruritus, No Rash, No Skin Lesion Changes, No Other, No Acne Physical Exam General: Alert, Oriented X3, Cooperative, No acute distress HEENT: Atraumatic, PERRLA, EOMI, Mucous membr. moist/pink Lungs: Clear to auscultation, Normal air movement Heart: S1S2, RRR, no thrills, no rubs, no gallops Cardiovascular: S1, S2 Breasts: Normal, Rt breast nml w/o mass, Lt breast nml w/o mass, Nipples normal Abdomen: Normal bowel sounds, Soft, No tenderness, No hepatosplenomegaly, No masses Rectal Exam: mass, other (external hemorrhoids, none strangulated ) PELVIC: Nml ext genitalia Extremities: Other (Bouchards and heberdens nodes on both hands appreciable, limited rOM RT shoulder but no palpable abN) Skin: No rashes, No breakdown, No significant lesion Neuro: Normal gait, Normal speech, Strength at 5/5 X4 ext, Normal tone, Sensation intact, Cranial nerves 3-12 NL, Reflexes 2+ Vitals Vitals Vital Signs Date Time Temp Pulse Resp B/P (MAP) Pulse Ox O2 Delivery O2 Flow Rate FiO2 12/09/16 08:51 98.2 72 20 132/73 (92) 93 Room Air 98.2 Labs Labs Laboratory Tests Test 12/09/16 06:18 12/09/16 06:30 12/09/16 06:45 White Blood Count 11.8 x10^3/uL (4.0-11.0) Red Blood Count 3.94 x10^6/uL (3.50-5.40) Hemoglobin 9.5 g/dL (12.0-15.5) Hematocrit 29.0 % (36.0-47.0) Mean Corpuscular Volume 74 fL (79-100) Mean Corpuscular Hemoglobin 24 pg (25-35) Mean Corpuscular Hemoglobin Concent 33 g/dL (31-37) Red Cell Distribution Width 17.7 % (11.5-14.5) Platelet Count 510 x10^3/uL (140-400) Neutrophils (%) (Auto) 67 % (31-73) Lymphocytes (%) (Auto) 20 % (24-48) Monocytes (%) (Auto) 10 % (0-9) Eosinophils (%) (Auto) 2 % (0-3) Basophils (%) (Auto) 1 % (0-3) Neutrophils # (Auto) 7.9 x10^3uL (1.8-7.7) Lymphocytes # (Auto) 2.3 x10^3/uL (1.0-4.8) Monocytes # (Auto) 1.2 x10^3/uL (0.0-1.1) Eosinophils # (Auto) 0.3 x10^3/uL (0.0-0.7) Basophils # (Auto) 0.1 x10^3/uL (0.0-0.2) Stool Occult Blood Positive (NEG) Urine Collection Type Unknown Urine Color Yellow Urine Clarity Cloudy Urine pH 5.0 Urine Specific [place] >=1.030 Urine Protein Negative mg/dL (NEG-TRACE) Urine Glucose (UA) Negative mg/dL (NEG) Urine Ketones (Stick) Negative mg/dL (NEG) Urine Blood Negative (NEG) Urine Nitrite Negative (NEG) Urine Bilirubin Small (NEG) Urine Urobilinogen Dipstick 0.2 mg/dL (0.2 mg/dL) Urine Leukocyte Esterase Moderate (NEG) Urine RBC 0 /HPF (0-2) Urine WBC 11-20 /HPF (0-4) Urine Squamous Epithelial Cells Occ /LPF Urine Bacteria Moderate /HPF (0-FEW) Urine Hyaline Casts Moderate /HPF Urine Mucus Marked /LPF Prothrombin Time 13.4 SEC (11.7-14.0) Prothromb Time International Ratio 1.1 (0.8-1.1) Activated Partial Thromboplast Time 33 SEC (24-38) Sodium Level 138 mmol/L (136-145) Potassium Level 3.7 mmol/L (3.5-5.1) Chloride Level 99 mmol/L (98-107) Carbon Dioxide Level 27 mmol/L (21-32) Anion Gap 12 (6-14) Blood Urea Nitrogen 27 mg/dL (7-20) Creatinine 1.1 mg/dL (0.6-1.0) Estimated GFR (Cockcroft-Gault) 47.9 Glucose Level 122 mg/dL (70-99) Calcium Level 9.4 mg/dL (8.5-10.1) Total Bilirubin 0.3 mg/dL (0.2-1.0) Direct Bilirubin 0.1 mg/dL (0.0-0.2) Aspartate Amino Transf (AST/SGOT) 15 U/L (15-37) Alanine Aminotransferase (ALT/SGPT) 13 U/L (14-59) Alkaline Phosphatase 92 U/L (46-116) Total Protein 8.4 g/dL (6.4-8.2) Albumin 3.2 g/dL (3.4-5.0) Laboratory Tests Test 12/09/16 06:18 12/09/16 06:30 12/09/16 06:45 White Blood Count 11.8 x10^3/uL (4.0-11.0) Red Blood Count 3.94 x10^6/uL (3.50-5.40) Hemoglobin 9.5 g/dL (12.0-15.5) Hematocrit 29.0 % (36.0-47.0) Mean Corpuscular Volume 74 fL (79-100) Mean Corpuscular Hemoglobin 24 pg (25-35) Mean Corpuscular Hemoglobin Concent 33 g/dL (31-37) Red Cell Distribution Width 17.7 % (11.5-14.5) Platelet Count 510 x10^3/uL (140-400) Neutrophils (%) (Auto) 67 % (31-73) Lymphocytes (%) (Auto) 20 % (24-48) Monocytes (%) (Auto) 10 % (0-9) Eosinophils (%) (Auto) 2 % (0-3) Basophils (%) (Auto) 1 % (0-3) Neutrophils # (Auto) 7.9 x10^3uL (1.8-7.7) Lymphocytes # (Auto) 2.3 x10^3/uL (1.0-4.8) Monocytes # (Auto) 1.2 x10^3/uL (0.0-1.1) Eosinophils # (Auto) 0.3 x10^3/uL (0.0-0.7) Basophils # (Auto) 0.1 x10^3/uL (0.0-0.2) Stool Occult Blood Positive (NEG) Urine Collection Type Unknown Urine Color Yellow Urine Clarity Cloudy Urine pH 5.0 Urine Specific [place] >=1.030 Urine Protein Negative mg/dL (NEG-TRACE) Urine Glucose (UA) Negative mg/dL (NEG) Urine Ketones (Stick) Negative mg/dL (NEG) Urine Blood Negative (NEG) Urine Nitrite Negative (NEG) Urine Bilirubin Small (NEG) Urine Urobilinogen Dipstick 0.2 mg/dL (0.2 mg/dL) Urine Leukocyte Esterase Moderate (NEG) Urine RBC 0 /HPF (0-2) Urine WBC 11-20 /HPF (0-4) Urine Squamous Epithelial Cells Occ /LPF Urine Bacteria Moderate /HPF (0-FEW) Urine Hyaline Casts Moderate /HPF Urine Mucus Marked /LPF Prothrombin Time 13.4 SEC (11.7-14.0) Prothromb Time International Ratio 1.1 (0.8-1.1) Activated Partial Thromboplast Time 33 SEC (24-38) Sodium Level 138 mmol/L (136-145) Potassium Level 3.7 mmol/L (3.5-5.1) Chloride Level 99 mmol/L (98-107) Carbon Dioxide Level 27 mmol/L (21-32) Anion Gap 12 (6-14) Blood Urea Nitrogen 27 mg/dL (7-20) Creatinine 1.1 mg/dL (0.6-1.0) Estimated GFR (Cockcroft-Gault) 47.9 Glucose Level 122 mg/dL (70-99) Calcium Level 9.4 mg/dL (8.5-10.1) Total Bilirubin 0.3 mg/dL (0.2-1.0) Direct Bilirubin 0.1 mg/dL (0.0-0.2) Aspartate Amino Transf (AST/SGOT) 15 U/L (15-37) Alanine Aminotransferase (ALT/SGPT) 13 U/L (14-59) Alkaline Phosphatase 92 U/L (46-116) Total Protein 8.4 g/dL (6.4-8.2) Albumin 3.2 g/dL (3.4-5.0) VTE Prophylaxis Ordered VTE Prophylaxis Devices: Yes VTE Pharmacological Prophylaxi: Yes Assessment/Plan Assessment/Plan 1. BRBPR likely from internal and external hemorrhoids 2. HX diverticulosis 3. COnstipation, acute on chronic 4. RT shoulder limited ROM, OA 5. Chronic OA bilateral hands, knees, hips PLAn: Agree admit as OBS H/H juan carlos Ortho consulted for rt shoulder pain Add pT/OT Ok for home PO dilaudid dose Agree with daily miralax as bowel regimen ok to be off tele Dw patient KAMLA HANKS MD Dec 09, 2016 10:10
[2016-12-09] MEDS ORDERED: HYDROmorphone 2 MG TABLET PO PRN (10:15)
[2016-12-09] MEDS: LEVOTHYROXINE 75 MCG TABLET PO SCH (10:33)
[2016-12-09 11:00] VITALS: BP 144/81
[2016-12-09] MEDS: PANTOPRAZOLE 40 MG TABLET.DR. PO SCH (11:08)
[2016-12-09] MEDS: amLODIPine BESYLATE 5 MG TABLET PO SCH (12:01)
[2016-12-09] MEDS: MULTIVITAMIN with MINERAL TABLET. PO SCH (12:01)
[2016-12-09] MEDS: LACTOBACILLUS ACIDOPH & BULGAR 1 TABLET. PO SCH (12:01)
[2016-12-09] MEDS: POLYETHYLENE GLYCOL 3350 17 GM PACKET. PO SCH (12:01)
[2016-12-09] MEDS: CHOLECALCIFEROL (VITAMIN D3) 1,000 UNIT TABLET PO SCH (12:02)
[2016-12-09] MEDS: hydroCHLOROthiazide 25 MG TABLET PO SCH (12:02)
[2016-12-09] MEDS: ACETAMINOPHEN 500 MG TABLET PO SCH ×3 (13:00→21:43)
[2016-12-09 15:00] VITALS: BP 133/68
[2016-12-09] MEDS: HYDROmorphone 2 MG TABLET PO PRN ×2 (15:06→21:47)
[2016-12-09 19:00] VITALS: BP 117/70
[2016-12-09] MEDS: DICLOFENAC SODIUM 1% TOPICAL GEL 100GM TUBE. TP SCH ×2 (21:00→21:42)
[2016-12-09] MEDS: LIDOCAINE (700MG/PATCH) PATCH. TD SCH (21:42)
--- NOTE | 2016-12-09 22:47 | ACF ---
Admission Forms Criteria GASTROINTESTINAL BLEEDING Clinical Indications for Inpatient Care (Place 'X' for any and all applicable criteria): Ongoing inpatient care may be indicated for gastrointestinal bleeding with ANY ONE of the following (4)(20)(21)(22)(23)(24): [X]I. Active bleeding (eg, fresh voluminous blood in emesis or nasogastric aspirate, or per rectum) [ ]II. Hemodynamic instability [ ]III. Anticoagulation therapy or coagulopathy ((eg, advanced liver disease, irreversible anticoagulation) [ ]IV. Ischemic colitis (22) [ ]V. Endoscopy showing arterial bleeding, adherent clot, nonbleeding visible vessel, varices, flat red spots, ulcer size greater than 2 cm, or portal hypertensive gastropathy [ ]. High-risk low platelet count [ ]VII. Anemia requiring inpatient care as indicated by ANY ONE of the following a)[ ] Cognitive impairment b)[ ] Syncope c)[ ] Heart failure d)[ ] Chest pain e)[ ] Dyspnea f)[ ] Other findings suggesting inadequate perfusion (eg, peripheral or myocardial ischemia, end organ dysfunction) [ ]VIII. High-risk low platelet count [ ]IX. Suspected variceal cause of bleeding as indicated by ANY ONE of the following(27)(28): a)[ ] Known varices b)[ ] Hepatomegaly or splenomegaly c)[ ] Ascites d)[ ] Jaundice or scleral icterus e)[ ] History of liver disease (eg, cirrhosis) f)[ ] Physical findings of portal hypertension (eg, caput medusa) g)[ ] Comorbid disorder indicating risk for portal vein thrombosis (eg , abdominal surgery, sepsis, shock, exchange transfusion, prior umbilical vein catheterization) Extended stay may be needed until ALL of the following are present(20)(38)(47): [ ]a) Hemodynamic stability [ ]b) No evidence of active bleeding (eg, stable Hematocrit) [ ]c) Platelet count, prothrombin time, and partial thromboplastin time acceptable for next level of care [ ]d) Surgical or other acute intervention not needed [ ]e) Oral hydration and diet tolerated The original [employer] Campbell[employer] content created by Edyta Alvarado has been revised. The portions of the content which have been revised are identified through the use of italic text or in bold, and Edyta Alvarado has neither reviewed nor approved the modified material. All other unmodified content is copyright [facility]. Please see references footnoted in the original [facility] edition 2016 Admission Criteria Met?: Yes ENRIKE HODGE Dec 09, 2016 22:47
[2016-12-09 23:14] VITALS: BP 118/71
[2016-12-10] MEDS: ONDANSETRON PF 4 MG/2 ML VIAL. IV PRN (00:29)
[2016-12-10 05:38] LABS: BASO # 0.1 x10^3/uL (0.0-0.2); BASO % 1 % (0-3); EOS % 4 % (0-3); HEMATOCRIT 28.5 % (36.0-47.0); HEMOGLOBIN 9.1 g/dL (12.0-15.5); LYMPH # 3.2 x10^3/uL (1.0-4.8); LYMPH % 28 % (24-48); MEAN CORPUSCULAR HEMOGLOBIN 24 pg (25-35); MEAN CORPUSCULAR HGB CONC 32 g/dL (31-37); MEAN CORPUSCULAR VOLUME 75 fL (79-100); MONO % 10 % (0-9); NEUT % 58 % (31-73); PLATELET COUNT 552 x10^3/uL (140-400); RED CELL DISTRIBUTION WIDTH 17.5 % (11.5-14.5); WHITE BLOOD COUNT 11.5 x10^3/uL (4.0-11.0)
[2016-12-10] MEDS: PANTOPRAZOLE 40 MG TABLET.DR. PO SCH (05:39)
[2016-12-10] MEDS: LEVOTHYROXINE 75 MCG TABLET PO SCH (05:39)
[2016-12-10 05:43] LABS: CALCIUM 9.2 mg/dL (8.5-10.1); CREATININE 1.1 mg/dL (0.6-1.0); GFR 47.9; POTASSIUM 3.7 mmol/L (3.5-5.1)
[2016-12-10 07:00] VITALS: BP 104/69
[2016-12-10] MEDS: DICLOFENAC SODIUM 1% TOPICAL GEL 100GM TUBE. TP SCH ×2 (09:00→21:00)
[2016-12-10] MEDS: MULTIVITAMIN with MINERAL TABLET. PO SCH (09:38)
[2016-12-10] MEDS: hydroCHLOROthiazide 25 MG TABLET PO SCH (09:38)
[2016-12-10] MEDS: CHOLECALCIFEROL (VITAMIN D3) 1,000 UNIT TABLET PO SCH (09:38)
[2016-12-10] MEDS: LACTOBACILLUS ACIDOPH & BULGAR 1 TABLET. PO SCH (09:38)
[2016-12-10] MEDS: amLODIPine BESYLATE 5 MG TABLET PO SCH (09:39)
[2016-12-10] MEDS: LIDOCAINE (700MG/PATCH) PATCH. TD SCH ×2 (09:40→22:38)
[2016-12-10] MEDS: POLYETHYLENE GLYCOL 3350 17 GM PACKET. PO SCH (09:40)
[2016-12-10] MEDS: ACETAMINOPHEN 500 MG TABLET PO SCH ×4 (09:40→21:42)
[2016-12-10 10:35] VITALS: BP 139/54
--- NOTE | 2016-12-10 10:38 | PDOC ---
PROGRESS NOTES Chief Complaint Chief Complaint 1. BRBPR likely from internal and external hemorrhoids 2. HX diverticulosis 3. COnstipation, acute on chronic 4. RT shoulder limited ROM, OA 5. Chronic OA bilateral hands, knees, hips 6. NOn sustained vtach after straining (12/09) History of Present Illness History of Present Illness Hgb 9.1 from 9.5 today\ NO BRBPR today, last one was yesterday 1 PM Lots of gas Was straining yesterday to get gas out, then had some few secs run of vtach - no syncope but did have presyncopal sxs No known cardiac dse, denies similar episodes in past PLAN: Labs calcium mag were ordered yesterday - all ok TRop one set is neg Check echo Can consult cards COnt PT.OT for now GOal home juan carlos. (wants to go home juan carlos too) Vitals Vitals Vital Signs Date Time Temp Pulse Resp B/P (MAP) Pulse Ox O2 Delivery O2 Flow Rate FiO2 12/10/16 09:39 87 127/78 12/10/16 07:00 98.6 17 94 Room Air 98.6 Physical Exam General: Alert, Oriented X3, Cooperative, No acute distress Lungs: Clear Abdomen: Normal bowel sounds, Soft, No tenderness, No hepatosplenomegaly, No masses Extremities: Other (Bouchards and heberdens nodes on both hands appreciable, limited rOM RT shoulder but no palpable abN) Skin: No rashes, No breakdown, No significant lesion Labs LABS Laboratory Tests Test 12/09/16 18:40 12/10/16 02:30 12/10/16 02:55 12/10/16 04:30 Calcium Level 8.6 mg/dL (8.5-10.1) 9.2 mg/dL (8.5-10.1) Troponin I Quantitative < 0.017 ng/mL (0.000-0.055) White Blood Count 11.5 x10^3/uL (4.0-11.0) Red Blood Count 3.80 x10^6/uL (3.50-5.40) Hemoglobin 9.1 g/dL (12.0-15.5) Hematocrit 28.5 % (36.0-47.0) Mean Corpuscular Volume 75 fL (79-100) Mean Corpuscular Hemoglobin 24 pg (25-35) Mean Corpuscular Hemoglobin Concent 32 g/dL (31-37) Red Cell Distribution Width 17.5 % (11.5-14.5) Platelet Count 552 x10^3/uL (140-400) Neutrophils (%) (Auto) 58 % (31-73) Lymphocytes (%) (Auto) 28 % (24-48) Monocytes (%) (Auto) 10 % (0-9) Eosinophils (%) (Auto) 4 % (0-3) Basophils (%) (Auto) 1 % (0-3) Neutrophils # (Auto) 6.7 x10^3uL (1.8-7.7) Lymphocytes # (Auto) 3.2 x10^3/uL (1.0-4.8) Monocytes # (Auto) 1.2 x10^3/uL (0.0-1.1) Eosinophils # (Auto) 0.4 x10^3/uL (0.0-0.7) Basophils # (Auto) 0.1 x10^3/uL (0.0-0.2) Sodium Level 140 mmol/L (136-145) Potassium Level 3.7 mmol/L (3.5-5.1) Chloride Level 100 mmol/L (98-107) Carbon Dioxide Level 27 mmol/L (21-32) Anion Gap 13 (6-14) Blood Urea Nitrogen 24 mg/dL (7-20) Creatinine 1.1 mg/dL (0.6-1.0) Estimated GFR (Cockcroft-Gault) 47.9 Glucose Level 70 mg/dL (70-99) Review of Systems Review of Systems neg CP, neg emesis, abd pain, lots of gas Assessment and Plan Assessmemt and Plan Problems Medical Problems: (1) GI bleed Status: Acute Problems: Comment Review of Relevant I have reviewed the following items jose antonio (where applicable) has been applied. Labs Laboratory Tests Test 12/09/16 06:18 12/09/16 06:30 12/09/16 06:45 12/09/16 18:40 White Blood Count 11.8 x10^3/uL (4.0-11.0) Red Blood Count 3.94 x10^6/uL (3.50-5.40) Hemoglobin 9.5 g/dL (12.0-15.5) Hematocrit 29.0 % (36.0-47.0) Mean Corpuscular Volume 74 fL (79-100) Mean Corpuscular Hemoglobin 24 pg (25-35) Mean Corpuscular Hemoglobin Concent 33 g/dL (31-37) Red Cell Distribution Width 17.7 % (11.5-14.5) Platelet Count 510 x10^3/uL (140-400) Neutrophils (%) (Auto) 67 % (31-73) Lymphocytes (%) (Auto) 20 % (24-48) Monocytes (%) (Auto) 10 % (0-9) Eosinophils (%) (Auto) 2 % (0-3) Basophils (%) (Auto) 1 % (0-3) Neutrophils # (Auto) 7.9 x10^3uL (1.8-7.7) Lymphocytes # (Auto) 2.3 x10^3/uL (1.0-4.8) Monocytes # (Auto) 1.2 x10^3/uL (0.0-1.1) Eosinophils # (Auto) 0.3 x10^3/uL (0.0-0.7) Basophils # (Auto) 0.1 x10^3/uL (0.0-0.2) Stool Occult Blood Positive (NEG) Urine Collection Type Unknown Urine Color Yellow Urine Clarity Cloudy Urine pH 5.0 Urine Specific [place] >=1.030 Urine Protein Negative mg/dL (NEG-TRACE) Urine Glucose (UA) Negative mg/dL (NEG) Urine Ketones (Stick) Negative mg/dL (NEG) Urine Blood Negative (NEG) Urine Nitrite Negative (NEG) Urine Bilirubin Small (NEG) Urine Urobilinogen Dipstick 0.2 mg/dL (0.2 mg/dL) Urine Leukocyte Esterase Moderate (NEG) Urine RBC 0 /HPF (0-2) Urine WBC 11-20 /HPF (0-4) Urine Squamous Epithelial Cells Occ /LPF Urine Bacteria Moderate /HPF (0-FEW) Urine Hyaline Casts Moderate /HPF Urine Mucus Marked /LPF Prothrombin Time 13.4 SEC (11.7-14.0) Prothromb Time International Ratio 1.1 (0.8-1.1) Activated Partial Thromboplast Time 33 SEC (24-38) Sodium Level 138 mmol/L (136-145) Potassium Level 3.7 mmol/L (3.5-5.1) Chloride Level 99 mmol/L (98-107) Carbon Dioxide Level 27 mmol/L (21-32) Anion Gap 12 (6-14) Blood Urea Nitrogen 27 mg/dL (7-20) Creatinine 1.1 mg/dL (0.6-1.0) Estimated GFR (Cockcroft-Gault) 47.9 Glucose Level 122 mg/dL (70-99) Calcium Level 9.4 mg/dL (8.5-10.1) 8.6 mg/dL (8.5-10.1) Total Bilirubin 0.3 mg/dL (0.2-1.0) Direct Bilirubin 0.1 mg/dL (0.0-0.2) Aspartate Amino Transf (AST/SGOT) 15 U/L (15-37) Alanine Aminotransferase (ALT/SGPT) 13 U/L (14-59) Alkaline Phosphatase 92 U/L (46-116) Total Protein 8.4 g/dL (6.4-8.2) Albumin 3.2 g/dL (3.4-5.0) Test 12/10/16 02:30 12/10/16 02:55 12/10/16 04:30 Troponin I Quantitative < 0.017 ng/mL (0.000-0.055) White Blood Count 11.5 x10^3/uL (4.0-11.0) Red Blood Count 3.80 x10^6/uL (3.50-5.40) Hemoglobin 9.1 g/dL (12.0-15.5) Hematocrit 28.5 % (36.0-47.0) Mean Corpuscular Volume 75 fL (79-100) Mean Corpuscular Hemoglobin 24 pg (25-35) Mean Corpuscular Hemoglobin Concent 32 g/dL (31-37) Red Cell Distribution Width 17.5 % (11.5-14.5) Platelet Count 552 x10^3/uL (140-400) Neutrophils (%) (Auto) 58 % (31-73) Lymphocytes (%) (Auto) 28 % (24-48) Monocytes (%) (Auto) 10 % (0-9) Eosinophils (%) (Auto) 4 % (0-3) Basophils (%) (Auto) 1 % (0-3) Neutrophils # (Auto) 6.7 x10^3uL (1.8-7.7) Lymphocytes # (Auto) 3.2 x10^3/uL (1.0-4.8) Monocytes # (Auto) 1.2 x10^3/uL (0.0-1.1) Eosinophils # (Auto) 0.4 x10^3/uL (0.0-0.7) Basophils # (Auto) 0.1 x10^3/uL (0.0-0.2) Sodium Level 140 mmol/L (136-145) Potassium Level 3.7 mmol/L (3.5-5.1) Chloride Level 100 mmol/L (98-107) Carbon Dioxide Level 27 mmol/L (21-32) Anion Gap 13 (6-14) Blood Urea Nitrogen 24 mg/dL (7-20) Creatinine 1.1 mg/dL (0.6-1.0) Estimated GFR (Cockcroft-Gault) 47.9 Glucose Level 70 mg/dL (70-99) Calcium Level 9.2 mg/dL (8.5-10.1) Laboratory Tests Test 12/09/16 18:40 12/10/16 02:30 12/10/16 02:55 12/10/16 04:30 Calcium Level 8.6 mg/dL (8.5-10.1) 9.2 mg/dL (8.5-10.1) Troponin I Quantitative < 0.017 ng/mL (0.000-0.055) White Blood Count 11.5 x10^3/uL (4.0-11.0) Red Blood Count 3.80 x10^6/uL (3.50-5.40) Hemoglobin 9.1 g/dL (12.0-15.5) Hematocrit 28.5 % (36.0-47.0) Mean Corpuscular Volume 75 fL (79-100) Mean Corpuscular Hemoglobin 24 pg (25-35) Mean Corpuscular Hemoglobin Concent 32 g/dL (31-37) Red Cell Distribution Width 17.5 % (11.5-14.5) Platelet Count 552 x10^3/uL (140-400) Neutrophils (%) (Auto) 58 % (31-73) Lymphocytes (%) (Auto) 28 % (24-48) Monocytes (%) (Auto) 10 % (0-9) Eosinophils (%) (Auto) 4 % (0-3) Basophils (%) (Auto) 1 % (0-3) Neutrophils # (Auto) 6.7 x10^3uL (1.8-7.7) Lymphocytes # (Auto) 3.2 x10^3/uL (1.0-4.8) Monocytes # (Auto) 1.2 x10^3/uL (0.0-1.1) Eosinophils # (Auto) 0.4 x10^3/uL (0.0-0.7) Basophils # (Auto) 0.1 x10^3/uL (0.0-0.2) Sodium Level 140 mmol/L (136-145) Potassium Level 3.7 mmol/L (3.5-5.1) Chloride Level 100 mmol/L (98-107) Carbon Dioxide Level 27 mmol/L (21-32) Anion Gap 13 (6-14) Blood Urea Nitrogen 24 mg/dL (7-20) Creatinine 1.1 mg/dL (0.6-1.0) Estimated GFR (Cockcroft-Gault) 47.9 Glucose Level 70 mg/dL (70-99) Medications Current Medications Ondansetron HCl (Zofran) 4 mg PRN Q8HRS PRN IV NAUSEA/VOMITING Last administered on 12/10/16 00:29; Start 12/09/16 at 07:45; Stop 12/10/16 at 07:44 ; Status DC Alprazolam (Xanax) 0.25 mg PRN Q6HRS PRN PO ANXIETY / AGITATION; Start at 09:00 Hydrochlorothiazide (Hydrodiuril) 25 mg DAILY PO Last administered on 09:38; Start 12/09/16 at 09:00 Levothyroxine Sodium (Synthroid) 75 mcg DAILYAC PO Last administered on 05:39; Start 12/09/16 at 09:00 Ondansetron HCl (Zofran Odt) 4 mg PRN Q8HRS PRN PO NAUSEA/VOMITING; Start 12/09 at 09:00 Vitamin D (Vitamin D3) 1,000 unit DAILY PO Last administered on 12/10/16 09:38 ; Start 12/09/16 at 09:00 Amlodipine Besylate (Norvasc) 5 mg DAILY PO Last administered on 12/10/16 09: 39; Start 12/09/16 at 09:00 Lactobacillus Acidophilus (Bacid, Julissa-Bid) 1 tab DAILY PO Last administered on 12/10/16 09:38; Start 12/09/16 at 09:00 Multivitamins (Thera M Plus) 1 tab DAILY PO Last administered on 12/10/16 09: 38; Start 12/09/16 at 09:00 Pantoprazole Sodium (Protonix) 40 mg DAILYAC PO Last administered on 12/10/16 05:39; Start 12/09/16 at 10:00 Polyethylene Glycol (miraLAX PACKET) 17 gm DAILY PO Last administered on 09:40; Start 12/09/16 at 10:00 Hydromorphone HCl (Dilaudid) 2 mg PRN Q4HRS PRN PO PAIN; Start 12/09/16 at 10: 15; Stop 12/09/16 at 13:05; Status DC Acetaminophen (Tylenol) 1,000 mg QID PO Last administered on 12/10/16 09:40; Start 12/09/16 at 13:00 Hydromorphone HCl (Dilaudid) 2 mg PRN Q4HRS PRN PO PAIN Last administered on 21:47; Start 12/09/16 at 11:15 Diclofenac Sodium (Voltaren) 1 lauren BID TP ; Start 12/09/16 at 21:00 Lidocaine (Lidoderm) 1 patch DAILY TD Last administered on 12/10/16 09:40; Start 12/09/16 at 21:00 Active Scripts Active Hydrocodone-Ibuprofen 7.5-200 (Hydrocodone/Ibuprofen) 1 Each Tablet 1 Tab PO PRN Q6HRS PRN Ondansetron Odt (Ondansetron) 4 Mg Tab.rapdis 4 Mg PO PRN Q8HRS PRN Reported Probiotic (Lactobacillus Combo No.11) 1 Each Cap.sprink 1 Each PO DAILY Xanax (Alprazolam) 0.25 Mg Tablet 0.25 Mg PO PRN Q6HRS PRN Centrum Silver Women Tablet (Multivits-Min/Iron/FA/Lutein) 1 Each Tablet 1 Each PO DAILY Vitamin D (Cholecalciferol (Vitamin D3)) 1,000 Unit Capsule 1 Cap PO DAILY Felodipine Er (Felodipine) 5 Mg Tab.er.24h 1 Tab PO DAILY Levothyroxine Sodium 75 Mcg Tablet 75 Mcg PO DAILYAC Hydrochlorothiazide Tablet (Hydrochlorothiazide) 25 Mg Tablet 25 Mg PO DAILY Vitals/I & O Vital Sign - Last 24 Hours 12/09/16 12/09/16 12/09/16 12/09/16 11:00 12:01 15:00 15:06 Temp 97.9 98.5 97.9 98.5 Pulse 65 65 83 Resp 20 18 B/P (MAP) 144/81 (102) 144/81 133/68 (89) Pulse Ox 94 90 94 O2 Delivery Room Air Room Air Room Air 12/09/16 12/09/16 12/09/16 12/09/16 16:12 19:00 20:00 21:47 Temp 97.1 97.1 Pulse 88 Resp 18 B/P (MAP) 117/70 (86) Pulse Ox 94 93 O2 Delivery Room Air Room Air Room Air 12/09/16 12/09/16 12/10/16 12/10/16 22:47 23:14 07:00 09:39 Temp 97.4 98.6 97.4 98.6 Pulse 82 87 87 Resp 18 17 B/P (MAP) 118/71 (87) 104/69 (81) 127/78 Pulse Ox 93 94 O2 Delivery Room Air Room Air Room Air Intake and Output 12/09/16 12/09/16 12/10/16 15:00 23:00 07:00 Intake Total 420 ml 340 ml Output Total 150 ml Balance 420 ml 190 ml KAMLA HANKS MD Dec 10, 2016 10:38
[2016-12-10 15:00] VITALS: BP 144/60
[2016-12-10] MEDS: HYDROmorphone 2 MG TABLET PO PRN ×2 (15:21→21:51)
[2016-12-10 19:00] VITALS: BP 124/67
[2016-12-10] MEDS: ALPRAZolam 0.25 MG TABLET PO PRN (21:48)
[2016-12-10] MEDS ORDERED: DOCUSATE SODIUM 100 MG CAPSULE. PO SCH (22:15)
[2016-12-10 23:00] VITALS: BP 125/65
[2016-12-11 03:00] VITALS: BP 123/71
[2016-12-11 07:00] VITALS: BP 117/71
[2016-12-11] MEDS: POLYETHYLENE GLYCOL 3350 17 GM PACKET. PO SCH (08:36)
[2016-12-11] MEDS: LIDOCAINE (700MG/PATCH) PATCH. TD SCH ×2 (08:38→21:09)
[2016-12-11] MEDS: CHOLECALCIFEROL (VITAMIN D3) 1,000 UNIT TABLET PO SCH (08:38)
[2016-12-11] MEDS: MULTIVITAMIN with MINERAL TABLET. PO SCH (08:38)
[2016-12-11] MEDS: LEVOTHYROXINE 75 MCG TABLET PO SCH (08:38)
[2016-12-11] MEDS: LACTOBACILLUS ACIDOPH & BULGAR 1 TABLET. PO SCH (08:38)
[2016-12-11] MEDS: hydroCHLOROthiazide 25 MG TABLET PO SCH (08:39)
[2016-12-11] MEDS: PANTOPRAZOLE 40 MG TABLET.DR. PO SCH (08:39)
[2016-12-11] MEDS: amLODIPine BESYLATE 5 MG TABLET PO SCH (08:39)
[2016-12-11] MEDS: ACETAMINOPHEN 500 MG TABLET PO SCH ×4 (08:39→21:07)
[2016-12-11] MEDS: HYDROmorphone 2 MG TABLET PO PRN ×2 (08:41→21:09)
[2016-12-11] MEDS: DICLOFENAC SODIUM 1% TOPICAL GEL 100GM TUBE. TP SCH ×2 (08:44→21:00)
[2016-12-11 11:00] VITALS: BP 120/68
[2016-12-11] MEDS ORDERED: diphenhydrAMINE HCL 25 MG CAPSULE PO PRN (11:00)
[2016-12-11] MEDS ORDERED: MAGNESIUM HYDROXIDE 2,400 MG/30 ML ORAL.SUSP. PO PRN (11:00)
--- NOTE | 2016-12-11 11:04 | PDOC ---
PROGRESS NOTES Chief Complaint Chief Complaint 1. BRBPR likely from internal and external hemorrhoids 2. HX diverticulosis 3. COnstipation, acute on chronic 4. RT shoulder limited ROM, OA 5. Chronic OA bilateral hands, knees, hips 6. NOn sustained vtach after straining (12/09) 7. Insomnia History of Present Illness History of Present Illness Still couple more concerns today: 1. LAst BM 4 days ago, started on daily miralax by GI - not working, afraid to strain bec when she did she went to non sustained vtach; and also afraid of more rectal clots, none so far for the last few days 2. Echo pending - had some PVCs yesterday, asymptomatic, BP 1teens- cards consulted Asks me about internal hemorrhoids as the cause of gIB- I said yes 3. Q's about naproxen she takes for severe OA as helping her in lisa backgorund of bleeding - on voltaren gel here - HEAVY EDUCATION AND COUNSELLING, time 32 mins alone in room PLAn: MOM now then prn Await gI rounds monday - any more recs for bowel regimen Ff up echo Keep tele Does notw ant to go home without BM given the bleed and extra heart beats Goal dc monday Vitals Vitals Vital Signs Date Time Temp Pulse Resp B/P (MAP) Pulse Ox O2 Delivery O2 Flow Rate FiO2 12/11/16 09:45 Room Air 12/11/16 08:39 85 117/71 12/11/16 07:00 98.1 20 91 98.1 Physical Exam General: Alert, Oriented X3, Cooperative, No acute distress Lungs: Clear Abdomen: Normal bowel sounds, Soft, No tenderness, No hepatosplenomegaly, No masses Extremities: Other (Bouchards and heberdens nodes on both hands appreciable, limited rOM RT shoulder but no palpable abN) Skin: No rashes, No breakdown, No significant lesion Review of Systems Review of Systems as above, pain joints, constipation, all else is neg Assessment and Plan Assessmemt and Plan Problems Medical Problems: (1) GI bleed Status: Acute Problems: Comment Review of Relevant I have reviewed the following items jose antonio (where applicable) has been applied. Labs Laboratory Tests Test 12/09/16 18:40 12/10/16 02:30 12/10/16 02:55 12/10/16 04:30 Calcium Level 8.6 mg/dL (8.5-10.1) 9.2 mg/dL (8.5-10.1) Troponin I Quantitative < 0.017 ng/mL (0.000-0.055) White Blood Count 11.5 x10^3/uL (4.0-11.0) Red Blood Count 3.80 x10^6/uL (3.50-5.40) Hemoglobin 9.1 g/dL (12.0-15.5) Hematocrit 28.5 % (36.0-47.0) Mean Corpuscular Volume 75 fL (79-100) Mean Corpuscular Hemoglobin 24 pg (25-35) Mean Corpuscular Hemoglobin Concent 32 g/dL (31-37) Red Cell Distribution Width 17.5 % (11.5-14.5) Platelet Count 552 x10^3/uL (140-400) Neutrophils (%) (Auto) 58 % (31-73) Lymphocytes (%) (Auto) 28 % (24-48) Monocytes (%) (Auto) 10 % (0-9) Eosinophils (%) (Auto) 4 % (0-3) Basophils (%) (Auto) 1 % (0-3) Neutrophils # (Auto) 6.7 x10^3uL (1.8-7.7) Lymphocytes # (Auto) 3.2 x10^3/uL (1.0-4.8) Monocytes # (Auto) 1.2 x10^3/uL (0.0-1.1) Eosinophils # (Auto) 0.4 x10^3/uL (0.0-0.7) Basophils # (Auto) 0.1 x10^3/uL (0.0-0.2) Sodium Level 140 mmol/L (136-145) Potassium Level 3.7 mmol/L (3.5-5.1) Chloride Level 100 mmol/L (98-107) Carbon Dioxide Level 27 mmol/L (21-32) Anion Gap 13 (6-14) Blood Urea Nitrogen 24 mg/dL (7-20) Creatinine 1.1 mg/dL (0.6-1.0) Estimated GFR (Cockcroft-Gault) 47.9 Glucose Level 70 mg/dL (70-99) Microbiology 12/09/16 Urine Culture - Preliminary, Resulted 7/14/17 Urine Culture Result 1 (RUBÉN) - Preliminary, Resulted Medications Current Medications Ondansetron HCl (Zofran) 4 mg PRN Q8HRS PRN IV NAUSEA/VOMITING Last administered on 12/10/16 00:29; Start 12/09/16 at 07:45; Stop 12/10/16 at 07:44 ; Status DC Alprazolam (Xanax) 0.25 mg PRN Q6HRS PRN PO ANXIETY / AGITATION Last administered on 12/10/16 21:48; Start 12/09/16 at 09:00 Hydrochlorothiazide (Hydrodiuril) 25 mg DAILY PO Last administered on 08:39; Start 12/09/16 at 09:00 Levothyroxine Sodium (Synthroid) 75 mcg DAILYAC PO Last administered on 08:38; Start 12/09/16 at 09:00 Ondansetron HCl (Zofran Odt) 4 mg PRN Q8HRS PRN PO NAUSEA/VOMITING; Start 12/09 at 09:00 Vitamin D (Vitamin D3) 1,000 unit DAILY PO Last administered on 12/11/16 08:38 ; Start 12/09/16 at 09:00 Amlodipine Besylate (Norvasc) 5 mg DAILY PO Last administered on 12/11/16 08: 39; Start 12/09/16 at 09:00 Lactobacillus Acidophilus (Bacid, Julissa-Bid) 1 tab DAILY PO Last administered on 12/11/16 08:38; Start 12/09/16 at 09:00 Multivitamins (Thera M Plus) 1 tab DAILY PO Last administered on 12/11/16 08: 38; Start 12/09/16 at 09:00 Pantoprazole Sodium (Protonix) 40 mg DAILYAC PO Last administered on 12/11/16 08:39; Start 12/09/16 at 10:00 Polyethylene Glycol (miraLAX PACKET) 17 gm DAILY PO Last administered on 08:36; Start 12/09/16 at 10:00 Hydromorphone HCl (Dilaudid) 2 mg PRN Q4HRS PRN PO PAIN; Start 12/09/16 at 10: 15; Stop 12/09/16 at 13:05; Status DC Acetaminophen (Tylenol) 1,000 mg QID PO Last administered on 12/11/16 08:39; Start 12/09/16 at 13:00 Hydromorphone HCl (Dilaudid) 2 mg PRN Q4HRS PRN PO PAIN Last administered on 08:41; Start 12/09/16 at 11:15 Diclofenac Sodium (Voltaren) 1 lauren BID TP ; Start 12/09/16 at 21:00 Lidocaine (Lidoderm) 1 patch DAILY TD Last administered on 12/11/16 08:38; Start 12/09/16 at 21:00 Lidocaine (Lidoderm) 1 patch HS TD Last administered on 12/10/16 22:38; Start 12/10/16 at 22:00 Docusate Sodium (Colace) 100 mg HS PO Last administered on 12/10/16 22:35; Start 12/10/16 at 22:15 Active Scripts Active Hydrocodone-Ibuprofen 7.5-200 (Hydrocodone/Ibuprofen) 1 Each Tablet 1 Tab PO PRN Q6HRS PRN Ondansetron Odt (Ondansetron) 4 Mg Tab.rapdis 4 Mg PO PRN Q8HRS PRN Reported Probiotic (Lactobacillus Combo No.11) 1 Each Cap.sprink 1 Each PO DAILY Xanax (Alprazolam) 0.25 Mg Tablet 0.25 Mg PO PRN Q6HRS PRN Centrum Silver Women Tablet (Multivits-Min/Iron/FA/Lutein) 1 Each Tablet 1 Each PO DAILY Vitamin D (Cholecalciferol (Vitamin D3)) 1,000 Unit Capsule 1 Cap PO DAILY Felodipine Er (Felodipine) 5 Mg Tab.er.24h 1 Tab PO DAILY Levothyroxine Sodium 75 Mcg Tablet 75 Mcg PO DAILYAC Hydrochlorothiazide Tablet (Hydrochlorothiazide) 25 Mg Tablet 25 Mg PO DAILY Vitals/I & O Vital Sign - Last 24 Hours 12/10/16 12/10/16 12/10/16 12/10/16 15:00 15:21 19:00 20:00 Temp 98.2 98.9 98.2 98.9 Pulse 77 85 Resp 24 23 B/P (MAP) 144/60 (88) 124/67 (86) Pulse Ox 94 94 O2 Delivery Room Air Room Air Room Air Room Air 12/10/16 12/10/16 12/11/16 12/11/16 21:51 23:00 03:00 07:00 Temp 98.7 98.2 98.1 98.7 98.2 98.1 Pulse 86 85 85 Resp 21 18 20 B/P (MAP) 125/65 (85) 123/71 (88) 117/71 (86) Pulse Ox 93 90 91 O2 Delivery Room Air Room Air Room Air Room Air 12/11/16 12/11/16 12/11/16 12/11/16 08:00 08:39 08:41 09:45 Pulse 85 B/P (MAP) 117/71 O2 Delivery Room Air Room Air Room Air Intake and Output 12/10/16 12/10/16 12/11/16 15:00 23:00 07:00 Intake Total 360 ml 1190 ml Output Total 800 ml Balance 360 ml 390 ml KAMLA HANKS MD Dec 11, 2016 11:04
[2016-12-11] MEDS ORDERED: MAGNESIUM HYDROXIDE 2,400 MG/30 ML ORAL.SUSP. PO ONE (11:30)
[2016-12-11] MEDS: DOCUSATE SODIUM 100 MG CAPSULE. PO SCH ×2 (12:01→21:07)
--- NOTE | 2016-12-11 14:48 | PDOC ---
GI PROGRESS NOTES Date Date/Time DATE: 12/11/16 TIME: 14:44 Subjective Subjective constipation rectal bleeding Objective Vitals Vital Signs Date Time Temp Pulse Resp B/P (MAP) Pulse Ox O2 Delivery O2 Flow Rate FiO2 12/11/16 11:00 98.1 82 20 120/68 (85) 92 Room Air 98.1 12/11/16 09:45 Room Air 12/11/16 08:41 Room Air 12/11/16 08:39 85 117/71 12/11/16 08:00 Room Air 12/11/16 07:00 98.1 85 20 117/71 (86) 91 Room Air 98.1 12/11/16 03:00 98.2 85 18 123/71 (88) 90 Room Air 98.2 12/10/16 23:00 98.7 86 21 125/65 (85) 93 Room Air 98.7 12/10/16 21:51 Room Air 12/10/16 20:00 Room Air 12/10/16 19:00 98.9 85 23 124/67 (86) 94 Room Air 98.9 12/10/16 15:21 Room Air 12/10/16 15:00 98.2 77 24 144/60 (88) 94 Room Air 98.2 Physical Exam Physical Exam chest- clear abd- obese, soft Assessment Assessment REctal bleeding- from straining, large stools- likely IH Large stools with constipation- on prn treatment at home - needs daily fiber supplement ( no prn) and low dose miralax or MOM regularly- also consider low dose amitiza or linzess later as needed Also straining seems to provoke Non Sust vtach Problems: Plan Plan now- MOM and Miralax at home daily benfiber and regular (daily?) use of Miralax or MOM- not prn with constipation FLOR SUÁREZ MD Dec 11, 2016 14:48
--- NOTE | 2016-12-11 14:53 | PDOC2 ---
CONSULT Date of Consult Date of Consult DATE: 12/11/16 TIME: 14:48 Reason for Consult Reason for Consult: non sustained wide complex tachycardia Referring Physician Referring Physician: Dr. Guerra Identification/Chief Complaint Chief Complaint Rectal bleeding Problems: Source Source: Patient History of Present Illness Reason for Visit: The patient is a 81-year-old female who was admitted for episodes of rectal bleeding. She has a history of previous GI bleeds. Evaluation is shown initial hemoglobin and hematocrit of 9.5 and 29.0. Platelet count was 510. She also has a history of severe osteoarthritis and hypertension. She denies any history of coronary artery disease, congestive 5 failure or cardiac arrhythmias. We are asked to see the patient for approximately 15 beat run of wide-complex tachycardia which occurred when the patient was straining. She denies any chest pain or shortness of breath. Potassium level III.7. Troponin is normal at 0.017. Past Medical History Cardiovascular: HTN Pulmonary: No pertinent hx GI: Diverticulosis, GI bleed, Other Heme/Onc: No pertinent hx Hepatobiliary: No pertinent hx Psych: No pertinent hx Musculoskeletal: Osteoarthritis Rheumatologic: No pertinent hx Infectious disease: No pertinent hx Renal/: No pertinent hx Endocrine: No pertinent hx, Hypothyroidism Past Surgical History Past Surgical History: Total knee replacement, Hysterectomy, Other Family History Family History: Cancer Social History No ALCOHOL: none Drugs: None Lives: Alone Current Problem List Problem List Problems Medical Problems: (1) GI bleed Status: Acute Current Medications Current Medications Current Medications Ondansetron HCl (Zofran) 4 mg PRN Q8HRS PRN IV NAUSEA/VOMITING Last administered on 12/10/16 00:29; Start 12/09/16 at 07:45; Stop 12/10/16 at 07:44 ; Status DC Alprazolam (Xanax) 0.25 mg PRN Q6HRS PRN PO ANXIETY / AGITATION Last administered on 12/10/16 21:48; Start 12/09/16 at 09:00 Hydrochlorothiazide (Hydrodiuril) 25 mg DAILY PO Last administered on 08:39; Start 12/09/16 at 09:00 Levothyroxine Sodium (Synthroid) 75 mcg DAILYAC PO Last administered on 08:38; Start 12/09/16 at 09:00 Ondansetron HCl (Zofran Odt) 4 mg PRN Q8HRS PRN PO NAUSEA/VOMITING; Start 12/09 at 09:00 Vitamin D (Vitamin D3) 1,000 unit DAILY PO Last administered on 12/11/16 08:38 ; Start 12/09/16 at 09:00 Amlodipine Besylate (Norvasc) 5 mg DAILY PO Last administered on 12/11/16 08: 39; Start 12/09/16 at 09:00 Lactobacillus Acidophilus (Bacid, Julissa-Bid) 1 tab DAILY PO Last administered on 12/11/16 08:38; Start 12/09/16 at 09:00 Multivitamins (Thera M Plus) 1 tab DAILY PO Last administered on 12/11/16 08: 38; Start 12/09/16 at 09:00 Pantoprazole Sodium (Protonix) 40 mg DAILYAC PO Last administered on 12/11/16 08:39; Start 12/09/16 at 10:00 Polyethylene Glycol (miraLAX PACKET) 17 gm DAILY PO Last administered on 08:36; Start 12/09/16 at 10:00 Hydromorphone HCl (Dilaudid) 2 mg PRN Q4HRS PRN PO PAIN; Start 12/09/16 at 10: 15; Stop 12/09/16 at 13:05; Status DC Acetaminophen (Tylenol) 1,000 mg QID PO Last administered on 12/11/16 13:21; Start 12/09/16 at 13:00 Hydromorphone HCl (Dilaudid) 2 mg PRN Q4HRS PRN PO PAIN Last administered on 08:41; Start 12/09/16 at 11:15 Diclofenac Sodium (Voltaren) 1 lauren BID TP ; Start 12/09/16 at 21:00 Lidocaine (Lidoderm) 1 patch DAILY TD Last administered on 12/11/16 08:38; Start 12/09/16 at 21:00 Lidocaine (Lidoderm) 1 patch HS TD Last administered on 12/10/16 22:38; Start 12/10/16 at 22:00 Docusate Sodium (Colace) 100 mg HS PO Last administered on 12/10/16 22:35; Start 12/10/16 at 22:15; Stop 12/11/16 at 10:59; Status DC Docusate Sodium (Colace) 100 mg BID PO Last administered on 12/11/16 12:01; Start 12/11/16 at 11:30 Magnesium Hydroxide (Milk Of Magnesia) 2,400 mg PRN DAILY PRN PO CONSTIPATION; Start 12/11/16 at 11:00 Magnesium Hydroxide (Milk Of Magnesia) 2,400 mg 1X ONCE PO Last administered on 12/11/16 12:01; Start 12/11/16 at 11:30; Stop 12/11/16 at 11:31; Status DC Diphenhydramine HCl (Benadryl) 25 mg PRN QHS PRN PO INSOMNIA; Start 12/11/16 at 11:00 Active Scripts Active Hydrocodone-Ibuprofen 7.5-200 (Hydrocodone/Ibuprofen) 1 Each Tablet 1 Tab PO PRN Q6HRS PRN Ondansetron Odt (Ondansetron) 4 Mg Tab.rapdis 4 Mg PO PRN Q8HRS PRN Reported Probiotic (Lactobacillus Combo No.11) 1 Each Cap.sprink 1 Each PO DAILY Xanax (Alprazolam) 0.25 Mg Tablet 0.25 Mg PO PRN Q6HRS PRN Centrum Silver Women Tablet (Multivits-Min/Iron/FA/Lutein) 1 Each Tablet 1 Each PO DAILY Vitamin D (Cholecalciferol (Vitamin D3)) 1,000 Unit Capsule 1 Cap PO DAILY Felodipine Er (Felodipine) 5 Mg Tab.er.24h 1 Tab PO DAILY Levothyroxine Sodium 75 Mcg Tablet 75 Mcg PO DAILYAC Hydrochlorothiazide Tablet (Hydrochlorothiazide) 25 Mg Tablet 25 Mg PO DAILY Allergies Allergies: Coded Allergies: influenza virus vaccine [id number] (36 mos,up) (Verified Allergy, Severe , Shortness of Air, 08/29/16) oxycodone (Verified Allergy, Intermediate, Itching, 08/29/16) ROS General: YES: Fatigue Gastrointestinal: Yes Other (rectal bleeding as above) Physical Exam General: No acute distress HEENT: Atraumatic Lungs: Clear to auscultation Heart: Regular rate Abdomen: Normal bowel sounds Extremities: No clubbing Vitals VITALS Vital Signs Date Time Temp Pulse Resp B/P (MAP) Pulse Ox O2 Delivery O2 Flow Rate FiO2 12/11/16 11:00 98.1 82 20 120/68 (85) 92 Room Air 98.1 Labs Labs Laboratory Tests Test 12/09/16 18:40 12/10/16 02:30 12/10/16 02:55 12/10/16 04:30 Calcium Level 8.6 mg/dL (8.5-10.1) 9.2 mg/dL (8.5-10.1) Troponin I Quantitative < 0.017 ng/mL (0.000-0.055) White Blood Count 11.5 x10^3/uL (4.0-11.0) Red Blood Count 3.80 x10^6/uL (3.50-5.40) Hemoglobin 9.1 g/dL (12.0-15.5) Hematocrit 28.5 % (36.0-47.0) Mean Corpuscular Volume 75 fL (79-100) Mean Corpuscular Hemoglobin 24 pg (25-35) Mean Corpuscular Hemoglobin Concent 32 g/dL (31-37) Red Cell Distribution Width 17.5 % (11.5-14.5) Platelet Count 552 x10^3/uL (140-400) Neutrophils (%) (Auto) 58 % (31-73) Lymphocytes (%) (Auto) 28 % (24-48) Monocytes (%) (Auto) 10 % (0-9) Eosinophils (%) (Auto) 4 % (0-3) Basophils (%) (Auto) 1 % (0-3) Neutrophils # (Auto) 6.7 x10^3uL (1.8-7.7) Lymphocytes # (Auto) 3.2 x10^3/uL (1.0-4.8) Monocytes # (Auto) 1.2 x10^3/uL (0.0-1.1) Eosinophils # (Auto) 0.4 x10^3/uL (0.0-0.7) Basophils # (Auto) 0.1 x10^3/uL (0.0-0.2) Sodium Level 140 mmol/L (136-145) Potassium Level 3.7 mmol/L (3.5-5.1) Chloride Level 100 mmol/L (98-107) Carbon Dioxide Level 27 mmol/L (21-32) Anion Gap 13 (6-14) Blood Urea Nitrogen 24 mg/dL (7-20) Creatinine 1.1 mg/dL (0.6-1.0) Estimated GFR (Cockcroft-Gault) 47.9 Glucose Level 70 mg/dL (70-99) Assessment/Plan Assessment/Plan 1. Rectal bleeding with a history of GI bleeds. Hemoglobin of 9.5 hematocrit of 29.0. As per the GI service. 2. Severe osteoarthritis. Patient has had diffuse orthopedic problems. Has been followed by the orthopedic surgery service. 3. Hypertension. Well controlled at this time. 4. 15 beat episode of wide complex tachycardia while the patient was straining. No associated chest pain or shortness of breath. No history of coronary artery disease, congestive heart failure or cardiac arrhythmias. Normal troponin levels. No recurrence. We'll continue present medications. We'll check LV function on echocardiogram. Thank you for allowing us to participate in the care of your patient. ALISON LEON MD Dec 11, 2016 14:53
[2016-12-11 15:00] VITALS: BP 118/70
--- NOTE | 2016-12-11 15:47 | CARD ---
APPROVED REPORT EXAM: Two-dimensional and M-mode echocardiogram with Doppler and color Doppler. Other Information Quality : FairHR: 83bpm INDICATION NONSUSTAINED WIDE COMPLEX TACHYCARDIA 2D DIMENSIONS Left Atrium(2D)4.4 (1.6-4.0cm)Aortic Root(2D)3.2 (2.0-3.7cm) LVOT Diameter2.9 (1.8-2.4cm)LA Csbnhk19 (18-58mL) LVEF(%)68.0 (>50%) M-Mode DIMENSIONS Aortic Cusp Exc1.70 (1.5-2.0cm) Aortic Valve AoV Peak Chase.114.1cm/sAoV VTI22.8cm AO Peak GR.5.2mmHgLVOT Peak Chase.117.0cm/s LVOT VTI 19.76cmAO Mean GR.3mmHg HUGO (VTI)5.80cm2 Mitral Valve MV E Qhfoinjs79.8cm/sMV DECEL RADD480bh MV A Elovqlcw96.1cm/sE/A Ratio0.6 MV A Dbvovxvw88mg TDI Lateral E' P. V9.40cm/sMedial E' P. V8.69cm/s E/Lateral E'5.8E/Medial E'6.3 Pulmonary Valve PV Peak Etekrtqd40.0cm/s Tricuspid Valve TR P. Hxtwkwvb903av/sRAP CNFZUEVT95xjNe TR Peak Gr.85qoEcJCFG15liTj LEFT VENTRICLE The left ventricle is normal size. There is normal left ventricular wall thickness. The left ventricu lar systolic function is normal. The ejection fraction is 55-60%. There is normal LV segmental wall m otion. Transmitral Doppler flow pattern is Grade I-abnormal relaxation pattern. No left ventricle thr ombus noted on this study. There is no ventricular septal defect visualized. There is no left ventric ular aneurysm. There is no mass noted in the left ventricle. RIGHT VENTRICLE The right ventricle is normal size. There is normal right ventricular wall thickness. The right ventr icular systolic function is normal. ATRIA The left atrium is mildly dilated. The right atrium size is normal. The interatrial septum is intact with no evidence for an atrial septal defect or patent foramen ovale as noted on 2-D or Doppler imagi ng. AORTIC VALVE The aortic valve is normal in structure and function. Doppler and Color Flow revealed trace aortic re gurgitation. There is no significant aortic valvular stenosis. There is no aortic valvular vegetation . MITRAL VALVE The mitral valve is normal in structure and function. There is no evidence of mitral valve prolapse. There is no mitral valve stenosis. Doppler and Color Flow revealed trace mitral valve regurgitation. TRICUSPID VALVE The tricuspid valve is normal in structure and function. Doppler and Color Flow revealed mild to mode rate tricuspid regurgitation. There is no tricuspid valve prolapse or vegetation. There is no tricusp id valve stenosis. PULMONIC VALVE The pulmonary valve is normal in structure and function. Doppler and Color Flow revealed no pulmonic valvular regurgitation. There is no pulmonic valvular stenosis. GREAT VESSELS The aortic root is normal in size. The ascending aorta is normal in size. Subcostal View unable to be obtained. PERICARDIAL EFFUSION There is no pleural effusion. There is no evidence of significant pericardial effusion. Critical Notification Critical Value: No <Conclusion> The left ventricle is normal size. The left ventricular systolic function is normal. The ejection fraction is 55-60%. There is normal left ventricular wall thickness. There is no significant aortic valvular stenosis. Doppler and Color Flow revealed trace aortic regurgitation. Doppler and Color Flow revealed trace mitral valve regurgitation. Doppler and Color Flow revealed mild to moderate tricuspid regurgitation. There is no evidence of significant pericardial effusion.
[2016-12-11 19:00] VITALS: BP 103/72
[2016-12-11] MEDS: ALPRAZolam 0.25 MG TABLET PO PRN (21:08)
[2016-12-11 23:00] VITALS: BP 113/61
[2016-12-12 06:05] LABS: HEMATOCRIT 28.7 % (36.0-47.0); HEMOGLOBIN 9.1 g/dL (12.0-15.5)
[2016-12-12 07:00] VITALS: BP 128/38
[2016-12-12] MEDS: MULTIVITAMIN with MINERAL TABLET. PO SCH (08:26)
[2016-12-12] MEDS: LACTOBACILLUS ACIDOPH & BULGAR 1 TABLET. PO SCH (08:26)
[2016-12-12] MEDS: ACETAMINOPHEN 500 MG TABLET PO SCH (08:26)
[2016-12-12] MEDS: PANTOPRAZOLE 40 MG TABLET.DR. PO SCH (08:27)
[2016-12-12] MEDS: hydroCHLOROthiazide 25 MG TABLET PO SCH (08:27)
[2016-12-12] MEDS: DOCUSATE SODIUM 100 MG CAPSULE. PO SCH (08:27)
[2016-12-12] MEDS: amLODIPine BESYLATE 5 MG TABLET PO SCH (08:27)
[2016-12-12] MEDS: LEVOTHYROXINE 75 MCG TABLET PO SCH (08:28)
[2016-12-12] MEDS: POLYETHYLENE GLYCOL 3350 17 GM PACKET. PO SCH (08:28)
[2016-12-12] MEDS: CHOLECALCIFEROL (VITAMIN D3) 1,000 UNIT TABLET PO SCH (08:28)
[2016-12-12] MEDS: DICLOFENAC SODIUM 1% TOPICAL GEL 100GM TUBE. TP SCH (08:29)
[2016-12-12] MEDS: LIDOCAINE (700MG/PATCH) PATCH. TD SCH (08:29)
[2016-12-12] MEDS ORDERED: MAGN2400 PO (08:49)
[2016-12-12] MEDS ORDERED: POLY17PO29 PO (08:49)
--- NOTE | 2016-12-12 10:44 | PDOC3 ---
Discharge Summary Visit Information Date of Admission: Dec 09, 2016 Date of Discharge: Dec 12, 2016 Admitting Diagnosis Comment: 1. BRBPR likely from internal and external hemorrhoids 2. HX diverticulosis 3. COnstipation, acute on chronic 4. RT shoulder limited ROM, OA 5. Chronic OA bilateral hands, knees, hips 6. NOn sustained vtach after straining (12/09) 7. Insomnia Final Diagnosis Problems Medical Problems: (1) GI bleed Status: Acute Brief Hospital Course Allergies Allergies Coded Allergies Type Severity Reaction Last Updated Verified influenza virus vaccine ts [id number] (36 mos,up) Allergy Severe Shortness of Air 08/29/16 Yes oxycodone Allergy Intermediate Itching 08/29/16 Yes Vital Signs Vital Signs Date Time Temp Pulse Resp B/P (MAP) Pulse Ox O2 Delivery O2 Flow Rate FiO2 12/12/16 08:27 92 128/38 12/12/16 07:45 Room Air 12/12/16 07:00 98.1 20 92 98.1 Lab Results Laboratory Tests Test 12/12/16 05:30 Hemoglobin 9.1 g/dL (12.0-15.5) Hematocrit 28.7 % (36.0-47.0) Mean Corpuscular Hemoglobin Concent 32 g/dL (31-37) Laboratory Tests Test 12/12/16 05:30 Hemoglobin 9.1 g/dL (12.0-15.5) Hematocrit 28.7 % (36.0-47.0) Mean Corpuscular Hemoglobin Concent 32 g/dL (31-37) Brief Hospital Course Ms. Marley is a 81 old [sex] who presented with [ ]BRBPR, happened before,. NOt real signif in amt. HAd c scope done by DR. Ward, internal and external hemorrhoids. COnstipated side. GI consulted. added /recommended daily bowel regimen MIralax. Now has moved BM 4x and is now mush, no blood though, Stable to go back to independent living. no HH needs. Pt seen and examined Had some non sustained vtach 15 beat run while straining, earlier in her course , echo ok,. Cards had no further recs Hgb good on dc Never needed BT COnsults: cards and GI DipsO; independent living Was on 4 pills naproxen daily for severe OA and RT shoulder pain - advised to cut down on1 tablet - relaly works well for her. Started on voltaren gel here Tinme 40 mins, counselling, She is very involved in her own health Discharge Information Condition at Discharge: Improved, Stable Disposition/Orders: D/C to Home Scheduled Cholecalciferol (Vitamin D3) (Vitamin D), 1 CAP PO DAILY, (Reported) Felodipine (Felodipine Er), 1 TAB PO DAILY, (Reported) Hydrochlorothiazide (Hydrochlorothiazide Tablet ), 25 MG PO DAILY, (Reported) Lactobacillus Combo No.11 (Probiotic), 1 EACH PO DAILY, (Reported) Levothyroxine Sodium (Levothyroxine Sodium), 75 MCG PO DAILYAC, (Reported) Multivits-Min/Iron/FA/Lutein (Centrum Silver Women Tablet), 1 EACH PO DAILY, ( Reported) Scheduled PRN Alprazolam (Xanax), 0.25 MG PO PRN Q6HRS PRN for ANXIETY / AGITATION, (Reported) Hydrocodone/Ibuprofen (Hydrocodone-Ibuprofen 7.5-200 ), 1 TAB PO PRN Q6HRS PRN for PAIN Ondansetron (Ondansetron Odt), 4 MG PO PRN Q8HRS PRN for NAUSEA/VOMITING Discontinued Medications Naproxen (Naproxen), 500 MG PO PRN PRN for PAIN, (Reported) Sulfamethoxazole/Trimethoprim (Bactrim Ds Tablet), 1 TAB PO BID, (Reported) KAMLA HANKS MD Dec 12, 2016 10:44
[2016-12-12 11:00] VITALS: BP 130/62
[2016-12-12] MEDS ORDERED: NAPROXEN 250 MG TABLET PO ONE (11:00)
--- NOTE | 2016-12-12 11:36 | PDOC ---
Subjective: Subjective: Several large stools, no recurrent bleeding. Wants to resume Naproxen due to severity of arthritis pain. Objective: Vital Signs: Vital Signs Date Time Temp Pulse Resp B/P (MAP) Pulse Ox O2 Delivery O2 Flow Rate FiO2 12/12/16 11:00 98.2 66 20 130/62 (84) 91 Room Air 98.2 Labs: Laboratory Tests Test 12/12/16 05:30 Hemoglobin 9.1 g/dL Hematocrit 28.7 % Mean Corpuscular Hemoglobin Concent 32 g/dL PE: GEN: NAD LUNGS: clear HEART: RRR ABD: S/ND/NT NEURO/PSYCH: A & O 3 A/P: Rectal bleeding - resolved -precipitated by constipation/straining ---> on Colace, Miralax, probiotics here -third episode, h/o diverticulosis and hemorrhoids -Hgb stable -last EGD and colonoscopy in 2014 per consult note NSAID use -has been on PPI here -- Note plans for DC - okay per GI. Encouraged/discussed consistent treatment of constipation to prevent straining/ re-bleeding. Plans to resume Benefiber at home and to continue Miralax. Plans to use Zantac at home w/ continued NSAID use. MELANIE PAYNE Dec 12, 2016 11:36
--- NOTE | 2016-12-12 12:30 | PDOC ---
CARDIO Progress Notes Date and Time Date of Service 12/12/16 Time of Evaluation 1130 Subjective Subjective: No Chest Pain, No shortness of breath, No Palpitations, Other (no futher bloody stools) Vitals Vitals Vital Signs Date Time Temp Pulse Resp B/P (MAP) Pulse Ox O2 Delivery O2 Flow Rate FiO2 12/12/16 11:00 98.2 66 20 130/62 (84) 91 Room Air 98.2 Weight Weight [ ] Input and Output Intake and Output Intake and Output 12/12/16 07:00 Intake Total 1700 ml Balance 1700 ml Intake Oral 1700 ml # Voids 3 # Bowel Movements 5 Laboratory Labs Laboratory Tests Test 12/12/16 05:30 Hemoglobin 9.1 g/dL (12.0-15.5) Hematocrit 28.7 % (36.0-47.0) Mean Corpuscular Hemoglobin Concent 32 g/dL (31-37) Microbiology Micro Microbiology 12/09/16 Urine Culture - Final, Complete 12/09/16 Urine Culture Result 1 (RUBÉN) - Final, Complete Physical Exam HEENT: Neck Supple W Full Motion Chest: Symmetric LUNGS: Clear to Auscultation Heart: S1S2, RRR, no thrills, no rubs, no gallops Abdomen: Soft N/T Extremities: No Edema, No Calf Tenderness Neurology: alert, oriented, follow commands Assessment Assessment 1. Ventricular arrhythmia: 15-beat NSVT while straining. No CP or SOA reported. No further significant arrhythmias noted on telemetry. Echo noted with preserved LV function with an EF of 55-60%. Will check Mg and TSH. No further cardiac workup warranted. Please call with questions. 2. Hypertension; well-controlled 3. GI bleed; per GI 4. Severe osteoarthritis. Patient has had diffuse orthopedic problems. Has been followed by the orthopedic surgery service. ABE GUZMÁN APRN Dec 12, 2016 12:30
[2016-12-12 12:47] LABS: CALCIUM 8.8 mg/dL (8.5-10.1); CREATININE 1.1 mg/dL (0.6-1.0); GFR 47.9; MAGNESIUM 2.8 mg/dL (1.8-2.4); POTASSIUM 3.8 mmol/L (3.5-5.1)
== END 2016-12-12 14:50 | disposition home or self-care (01) ==
LOC: ER 06:15 → 5 NORTH 07:00
PROVIDERS: ADMIT Internal Medicine; ATTEND Internal Medicine
DX: K92.2 Gastrointestinal hemorrhage, unspecified (principal); K57.90 Diverticulosis of intestine, part unspecified, without perforation or abscess without bleeding; K59.00 Constipation, unspecified; M19.011 Primary osteoarthritis, right shoulder; M19.042 Primary osteoarthritis, left hand; M19.041 Primary osteoarthritis, right hand; I47.2 Ventricular tachycardia; G47.00 Insomnia, unspecified; E03.9 Hypothyroidism, unspecified; F41.9 Anxiety disorder, unspecified; I10 Essential (primary) hypertension; I49.3 Ventricular premature depolarization; K21.0 Gastro-esophageal reflux disease with esophagitis; K60.2 Anal fissure, unspecified; K64.4 Residual hemorrhoidal skin tags; Z80.1 Family history of malignant neoplasm of trachea, bronchus and lung; Z82.3 Family history of stroke; Z96.651 Presence of right artificial knee joint; Z98.41 Cataract extraction status, right eye; Z98.42 Cataract extraction status, left eye
CPT/HCPCS: 36415; 80048; 80076; 81001; 82274; 82310; 83735; 84443; 84484; 85014; 85018; 85027; 85610; 85730; 86850; 86900; 86901; 87086; 93306; 96374; 96376; 99285; A6539; G0378; J2405; G0379

== ENCOUNTER 2018-09-14 20:20 | Emergency (ER) | payer MEDICARE ==
[~2018-09-14] VITALS: Ht 170.2 cm; Wt 91.2 kg
[2018-09-14 20:20] VITALS: BP 169/92
[~2018-09-14 20:20] MED LIST changes: +ACET325T9 PO; +CALC-558 PO; +CALC-77 PO; +CIPR500T94 PO; +DOCU100C28 PO; +FAMO20TA5 PO; +FERR325T72 PO; +HYDR-2145 PO; -HYDR-2758 PO; +HYDR-2761 PO; -HYDR-79 PO; -HYDR25TA9 PO; +HYDR4TAB45 PO; +HYDROCODONE-IB1 EAC3 PO; +LEVO500T59 PO; +LINE100S2 PO; +MAGN2400 PO; +METR500T PO; +NAPR-514 PO; -NAPR500T3 PO; -OXYC5TAB PO; +OXYC5TAB4 PO; +POLY17PO29 PO; +TRAM50TA PO
[2018-09-14 22:13] LABS: BASO # 0.1 x10^3/uL (0.0-0.2); BASO % 1 % (0-3); EOS # 0.3 x10^3/uL (0.0-0.7); EOS % 3 % (0-3); HEMOGLOBIN 11.3 g/dL (12.0-15.5); LYMPH # 2.5 x10^3/uL (1.0-4.8); LYMPH % 23 % (24-48); MEAN CORPUSCULAR HEMOGLOBIN 26 pg (25-35); MEAN CORPUSCULAR HGB CONC 32 g/dL (31-37); MEAN CORPUSCULAR VOLUME 81 fL (79-100); MONO % 9 % (0-9); NEUT % 65 % (31-73); PLATELET COUNT 434 x10^3/uL (140-400); RED BLOOD COUNT 4.34 x10^6/uL (3.50-5.40); RED CELL DISTRIBUTION WIDTH 16.5 % (11.5-14.5); WHITE BLOOD COUNT 10.9 x10^3/uL (4.0-11.0)
[2018-09-14 22:21] LABS: CALCIUM 9.8 mg/dL (8.5-10.1); CREATININE 1.1 mg/dL (0.6-1.0); GFR 47.7; POTASSIUM 4.2 mmol/L (3.5-5.1)
[2018-09-14 22:23] LABS: PROTHROMBIN TIME PATIENT 13.8 SEC (11.7-14.0)
[2018-09-14 22:27] LABS: ALBUMIN 3.3 g/dL (3.4-5.0); ALBUMIN/GLOBULIN RATIO 0.6 (1.0-1.7); MAGNESIUM 2.3 mg/dL (1.8-2.4); TOTAL BILIRUBIN 0.3 mg/dL (0.2-1.0); TOTAL PROTEIN 8.6 g/dL (6.4-8.2)
[2018-09-14 22:30] LABS: BILIRUBIN,URINE NEGATIVE (NEG); CLARITY,URINE CLEAR; COLOR,URINE YELLOW; NITRITE,URINE NEGATIVE (NEG); PROTEIN,URINE NEGATIVE (NEG-TRACE); UROBILINOGEN,URINE 0.2 mg/dL (0.2 mg/dL)
[2018-09-14 22:36] LABS: BACTERIA,URINE 0 /HPF (0-FEW); RBC,URINE OCC /HPF (0-2); SQUAMOUS EPITHELIAL CELL,UR FEW /LPF
[2018-09-14 22:38] LABS: FECAL OB PT POSITIVE (NEG)
[2018-09-14] MEDS ORDERED: fentaNYL PF VIAL 100 MCG/2 ML VIAL IV ONE (22:45)
[2018-09-14] MEDS ORDERED: SENN-121 PO (23:25)
[2018-09-14] MEDS ORDERED: HYDR25SU18 RC (23:25)
--- NOTE | 2018-09-14 23:25 | PHYS DOC ---
Past Medical History Past Medical History: Arthritis, Diverticulitis, Diverticulosis, GERD, High Cholesterol, Hypertension, Hypothyroid, Pneumonia, Other Additional Past Medical Histor: PAC'S, GASTRITIS, osteoarthritis R. shoulder and knee Past Surgical History: Hysterectomy, Knee Replacement, Tonsillectomy, Other Alcohol Use: None Drug Use: None Adult General Chief Complaint Chief Complaint: GI PROBLEM HPI HPI Patient is a 83 year old female who presents with bright red blood in stool. Patient states that couple days ago she had a really hard bowel movement. The next time she went to the bathroom she noticed that there was bright red blood when she wiped. She had another episode of bright red blood today. She does admit to having a history of severe internal and external hemorrhoids. She denies any lightheadedness, dizziness, chest or shortness of breath. Nothing has helped or worsened her bleeding. Review of Systems Review of Systems Constitutional: Denies fever or chills Eyes: Denies redness or eye pain [] HENT: Denies nasal congestion or sore throat [] Respiratory: Denies cough or shortness of breath [] Cardiovascular: Denies chest pain or palpitations [] GI: Reports bright red blood when stooling. Denies abdominal pain, nausea, vomiting[] : Denies dysuria or hematuria [] Musculoskeletal: Denies back pain or joint pain [] Integument: Denies rash or skin lesions [] Neurologic: Denies headache or sensory changes [] Complete systems were reviewed and found to be within normal limits, except as documented in this note. Current Medications Current Medications Current Medications Medications (Trade) Dose Ordered Sig/[facility] Start Time Stop Time Status Last Admin Dose Admin Acetaminophen (Tylenol) 500 mg 1X ONCE 09/15/18 00:30 09/15/18 00:31 09/15/18 00:23 500 MG Fentanyl Citrate (Fentanyl 2ml Vial) 75 mcg 1X ONCE 09/14/18 22:45 09/15/18 00:18 DC Allergies Allergies Allergies Coded Allergies Type Severity Reaction Last Updated Verified Influenza Virus Vaccines Allergy Severe Shortness of Air 04/23/17 Yes codeine Allergy Mild 09/14/18 Yes tramadol Allergy Mild 09/14/18 Yes hydrocodone Adverse Reaction Mild Itching 10/24/17 Yes Physical Exam Physical Exam Constitutional: No acute distress, non-toxic appearance. [] HENT: Normocephalic, atraumatic Eyes: EOMI, conjunctiva normal, no discharge. [] Neck: Normal range of motion, supple[] Cardiovascular:Heart rate regular rhythm, no murmur [] Lungs & Thorax: Bilateral breath sounds clear to auscultation [] Abdomen: Bowel sounds normal, soft, no tenderness, no rebound, rigidity, or guarding. [] Skin: Warm, dry, no rash. [] Back: No tenderness, no CVA tenderness. [] Extremities: No clubbing, no edema. [] Neurologic: Alert and oriented X 3, no focal deficits noted. [] Psychologic: Affect normal, mood normal. [] Current Patient Data Vital Signs Vital Signs Date Time Temp Pulse Resp B/P (MAP) Pulse Ox O2 Delivery O2 Flow Rate FiO2 09/14/18 20:20 98.9 95 20 169/92 (117) 93 Room Air 98.9 Lab Values Laboratory Tests Test 09/14/18 22:05 09/14/18 22:15 09/14/18 22:20 White Blood Count 10.9 x10^3/uL (4.0-11.0) Red Blood Count 4.34 x10^6/uL (3.50-5.40) Hemoglobin 11.3 g/dL (12.0-15.5) L Hematocrit 35.0 % (36.0-47.0) L Mean Corpuscular Volume 81 fL (79-100) Mean Corpuscular Hemoglobin 26 pg (25-35) Mean Corpuscular Hemoglobin Concent 32 g/dL (31-37) Red Cell Distribution Width 16.5 % (11.5-14.5) H Platelet Count 434 x10^3/uL (140-400) H Neutrophils (%) (Auto) 65 % (31-73) Lymphocytes (%) (Auto) 23 % (24-48) L Monocytes (%) (Auto) 9 % (0-9) Eosinophils (%) (Auto) 3 % (0-3) Basophils (%) (Auto) 1 % (0-3) Neutrophils # (Auto) 7.0 x10^3uL (1.8-7.7) Lymphocytes # (Auto) 2.5 x10^3/uL (1.0-4.8) Monocytes # (Auto) 1.0 x10^3/uL (0.0-1.1) Eosinophils # (Auto) 0.3 x10^3/uL (0.0-0.7) Basophils # (Auto) 0.1 x10^3/uL (0.0-0.2) Prothrombin Time 13.8 SEC (11.7-14.0) Prothrombin Time INR 1.1 (0.8-1.1) PTT 34 SEC (24-38) Sodium Level 136 mmol/L (136-145) Potassium Level 4.2 mmol/L (3.5-5.1) Chloride Level 99 mmol/L (98-107) Carbon Dioxide Level 26 mmol/L (21-32) Anion Gap 11 (6-14) Blood Urea Nitrogen 27 mg/dL (7-20) H Creatinine 1.1 mg/dL (0.6-1.0) H Estimated GFR (Cockcroft-Gault) 47.7 BUN/Creatinine Ratio 25 (6-20) H Glucose Level 107 mg/dL (70-99) H Calcium Level 9.8 mg/dL (8.5-10.1) Magnesium Level 2.3 mg/dL (1.8-2.4) Total Bilirubin 0.3 mg/dL (0.2-1.0) Aspartate Amino Transferase (AST) 15 U/L (15-37) Alanine Aminotransferase (ALT) 15 U/L (14-59) Alkaline Phosphatase 88 U/L (46-116) Total Protein 8.6 g/dL (6.4-8.2) H Albumin 3.3 g/dL (3.4-5.0) L Albumin/Globulin Ratio 0.6 (1.0-1.7) L Urine Collection Type Unknown Urine Color Yellow Urine Clarity Clear Urine pH 6.0 Urine Specific [place] 1.010 Urine Protein Negative mg/dL (NEG-TRACE) Urine Glucose (UA) Negative mg/dL (NEG) Urine Ketones (Stick) Negative mg/dL (NEG) Urine Blood Negative (NEG) Urine Nitrite Negative (NEG) Urine Bilirubin Negative (NEG) Urine Urobilinogen Dipstick 0.2 mg/dL (0.2 mg/dL) Urine Leukocyte Esterase Small (NEG) Urine RBC Occ /HPF (0-2) Urine WBC 1-4 /HPF (0-4) Urine Squamous Epithelial Cells Few /LPF Urine Bacteria 0 /HPF (0-FEW) Stool Occult Blood Positive (NEG) Laboratory Tests 09/14/18 22:05 Laboratory Tests 09/14/18 22:05 EKG EKG [] Radiology/Procedures Radiology/Procedures [] Course & Med Decision Making Course & Med Decision Making 83-year-old female patient emergency department due to bright red blood in her stool. She states that she has a history of external and internal hemorrhoids. Labs obtained and posted to chart. Rectal exam showed no external hemorrhoids , but internal hemorrhoids were felt at 12 o'clock position. Fecal occult was grossly positive. Hgb was stable. Patient stable for discharge with outpatient follow-up with PCP. Discussed findings and plan with patient and family, who acknowledge understanding and agreement. [] Dragon Disclaimer Dragon Disclaimer This electronic medical record was generated, in whole or in part, using a voice recognition dictation system. Departure Departure Impression: Primary Impression: Rectal bleeding Disposition: HOME, SELF-CARE Condition: STABLE Referrals: NICOLE LIZAMA MD (PCP) MICHAEL YE MD Patient Instructions: Rectal Bleeding, [id number] Scripts Sennosides/Docusate Sodium (Colace 2-in-1 Tablet) 1 Each Tablet 1 EACH PO QHS PRN for CONSTIPATION, #20 TAB Prov: GODWIN DELVALLE DO 09/14/18 Hydrocortisone Acetate (ANUSOL-HC) 25 Mg Supp.rect 1 SUPP RC BID PRN for SEE COMMENTS, #14 SUPP For rectal bleeding due to internal hemorrhoids Prov: GODWIN DELVALLE DO 09/14/18 GODWIN DELVALLE DO Sep 14, 2018 23:25
[2018-09-15] MEDS ORDERED: ACETAMINOPHEN 500 MG TABLET PO ONE (00:30)
== END 2018-09-15 01:47 | disposition home or self-care (01) ==
LOC: ER 20:20
DX: K62.5 Hemorrhage of anus and rectum (principal); E78.00 Pure hypercholesterolemia, unspecified; K21.9 Gastro-esophageal reflux disease without esophagitis; E03.9 Hypothyroidism, unspecified; I10 Essential (primary) hypertension; Z90.710 Acquired absence of both cervix and uterus; Z88.5 Allergy status to narcotic agent; Z88.6 Allergy status to analgesic agent; Z88.7 Allergy status to serum and vaccine
CPT/HCPCS: 36415; 80053; 81001; 82274; 83735; 85025; 85610; 85730; 87086; 87186; 99284-25

== ENCOUNTER 2021-09-22 22:57 | Inpatient (IN) | payer MEDICARE ==
[~2021-09-22] VITALS: Ht 160 cm; Wt 79.6 kg
[~2021-09-22 22:57] MED LIST changes: -FELO5TAB PO; +FELO5TAB4 PO; +HYDR25SU18 RC; -MAGN2400 PO; +MAGN24003 PO; +POTA-121 PO; -POTA20TA4 PO; +SENN-121 PO
[2021-09-22] MEDS ORDERED: ACETAMINOPHEN 325 MG TABLET. PO PRN (23:15)
[2021-09-22] MEDS ORDERED: ONDANSETRON PF 4 MG/2 ML VIAL. IVP PRN (23:15)
[2021-09-22] MEDS ORDERED: HYDROmorphone 2 MG TABLET PO PRN (23:15)
[2021-09-22 23:48] LABS: BASO # 0.1 x10^3/uL (0.0-0.2); BASO % 1 % (0-3); EOS # 0.4 x10^3/uL (0.0-0.7); EOS % 3 % (0-3); HEMATOCRIT 29.9 % (36.0-47.0); LYMPH % 15 % (24-48); MEAN CORPUSCULAR HEMOGLOBIN 23 pg (25-35); MEAN CORPUSCULAR HGB CONC 33 g/dL (31-37); MEAN CORPUSCULAR VOLUME 70 fL (79-100); MONO # 1.3 x10^3/uL (0.0-1.1); MONO % 10 % (0-9); NEUT % 70 % (31-73); PLATELET COUNT 797 x10^3/uL (140-400); RED BLOOD COUNT 4.25 x10^6/uL (3.50-5.40); WHITE BLOOD COUNT 12.8 x10^3/uL (4.0-11.0)
[2021-09-23] VITALS (7 sets, daily range): BP systolic 110–141; BP diastolic 48–87
[2021-09-23] LABS: CALCIUM 8.8 mg/dL (8.5-10.1); CREATININE 1.2 mg/dL (0.6-1.0); GFR 42.8; POTASSIUM 4.5 mmol/L (3.5-5.1)
--- NOTE | 2021-09-23 | PHYS DOC ---
Past Medical History Past Medical History: Arthritis, Diverticulitis, Diverticulosis, GERD, High Cholesterol, Hypertension, Hypothyroid, Pneumonia, Other Additional Past Medical Histor: PAC'S, GASTRITIS, osteoarthritis R. shoulder and knee Past Surgical History: Appendectomy, Knee Replacement Smoking Status: Never Smoker Alcohol Use: Occasionally Drug Use: None General Adult EDM: Chief Complaint: LOWER EXT PAIN HPI: HPI: Patient is a 86 year old female with a history of high cholesterol, hypertension, arthritis, who presents the ED today complaining of moderate intermittent right knee pain and right lower extremity pain, symptoms have been going on for 2 days. Patient states for the last 48 hours she has been unable to bear weight on the right lower extremity. She states she lives at home alone and this has made her mobility difficult. Denies any trauma. Reports history of femur IM nailing as well as right knee replacement. She states she has tried taking her Dilaudid 2 mg with no relief. Review of Systems: Review of Systems: Constitutional: Denies fever or chills. [] Eyes: Denies change in visual acuity. [] HENT: Denies nasal congestion or sore throat. [] Respiratory: Denies cough or shortness of breath. [] Cardiovascular: Denies chest pain or edema. [] GI: Denies abdominal pain, nausea, vomiting, bloody stools or diarrhea. [] : Denies dysuria. [] Musculoskeletal: Reports right knee pain, right lower extremity pain Integument: Denies rash. [] Neurologic: Denies headache, focal weakness or sensory changes. [] Psychiatric: Denies depression or anxiety. [] Heart Score: C/O Chest Pain: N/A Risk Factors: Risk Factors: DM, Current or recent (<one month) smoker, HTN, HLP, family history of CAD, obesity. Risk Scores: Score 0 - 3: 2.5% MACE over next 6 weeks - Discharge Home Score 4 - 6: 20.3% MACE over next 6 weeks - Admit for Clinical Observation Score 7 - 10: 72.7% MACE over next 6 weeks - Early Invasive Strategies Current Medications: Current Medications Medications (Trade) Dose Ordered Sig/Rosetta Start Time Stop Time Status Last Admin Dose Admin Acetaminophen (Tylenol) 650 mg PRN Q4HRS PRN 09/22/21 23:15 09/23/21 23:14 Hydromorphone HCl (Dilaudid) 2 mg PRN Q4HRS PRN 09/22/21 23:15 Ondansetron HCl (Zofran) 4 mg PRN Q8HRS PRN 09/22/21 23:15 09/23/21 23:14 Allergies: Allergies: Allergies Coded Allergies Type Severity Reaction Last Updated Verified Influenza Virus Vaccines Allergy Severe Shortness of Air 04/23/17 Yes codeine Allergy Mild 09/14/18 Yes tramadol Allergy Mild 09/14/18 Yes hydrocodone Adverse Reaction Mild Itching 10/24/17 Yes Physical Exam: PE: Constitutional: Well developed, well nourished, no acute distress, non-toxic appearance. [] HENT: Normocephalic, atraumatic, bilateral external ears normal, oropharynx moist, no oral exudates, nose normal. [] Eyes: PERRLA, EOMI, conjunctiva normal, no discharge. [] Neck: Normal range of motion, no tenderness, supple, no stridor. [] Cardiovascular:Heart rate regular rhythm, no murmur [] Lungs & Thorax: Bilateral breath sounds clear to auscultation [] Abdomen: Bowel sounds normal, soft, no tenderness, no masses, no pulsatile masses. [] Skin: Warm, dry, no erythema, no rash. [] Back: No tenderness, no CVA tenderness. [] Extremities: Right knee with no obvious deformity, old healed surgical incision noted midline knee. Some soft tissue swelling noted over the right medial knee. Tenderness diffusely to the knee. Full passive range of motion to the right knee. +2 right pedal pulse. Cap refill less than 2 seconds of right lower extremity Neurologic: Alert and oriented X 3, normal motor function, normal sensory function, no focal deficits noted. [] Psychologic: Affect normal, judgement normal, mood normal. [] Current Patient Data: Labs: Laboratory Tests Test 09/22/21 23:42 White Blood Count 12.8 x10^3/uL (4.0-11.0) H Red Blood Count 4.25 x10^6/uL (3.50-5.40) Hemoglobin 10.0 g/dL (12.0-15.5) L Hematocrit 29.9 % (36.0-47.0) L Mean Corpuscular Volume 70 fL (79-100) L Mean Corpuscular Hemoglobin 23 pg (25-35) L Mean Corpuscular Hemoglobin Concent 33 g/dL (31-37) Red Cell Distribution Width 17.0 % (11.5-14.5) H Platelet Count 797 x10^3/uL (140-400) H Neutrophils (%) (Auto) 70 % (31-73) Lymphocytes (%) (Auto) 15 % (24-48) L Monocytes (%) (Auto) 10 % (0-9) H Eosinophils (%) (Auto) 3 % (0-3) Basophils (%) (Auto) 1 % (0-3) Neutrophils # (Auto) 9.0 x10^3/uL (1.8-7.7) H Lymphocytes # (Auto) 2.0 x10^3/uL (1.0-4.8) Monocytes # (Auto) 1.3 x10^3/uL (0.0-1.1) H Eosinophils # (Auto) 0.4 x10^3/uL (0.0-0.7) Basophils # (Auto) 0.1 x10^3/uL (0.0-0.2) Platelet Estimate Pending Laboratory Tests 09/22/21 23:42 Vital Signs: Vital Signs Date Time Temp Pulse Resp B/P (MAP) Pulse Ox O2 Delivery O2 Flow Rate FiO2 09/22/21 23:00 98.7 92 19 133/93 (106) 94 Room Air 98.7 EKG: EKG: [] Radiology/Procedures: Radiology/Procedures: []PROCEDURE: VENOUS LOWER EXTREMITY RIGHT STUDY: US DPLX VENOUS EXTREMITY LOWER RT INDICATION: Right lower extremity pain and swelling. TECHNIQUE: Color-flow and pulsed wave duplex ultrasound with compression of venous structures of the right lower extremity. COMPARISON: None Available FINDINGS: Duplex ultrasound with compression of the deep venous structures of the right lower extremity from the common femoral vein through the popliteal vein is negative for DVT. The posterior tibial and peroneal veins are segmentally visualized and patent where seen. Normal venous waveforms and augmentation are noted throughout. IMPRESSION: No deep venous thrombosis identified throughout the right lower extremity. Electronically signed by: ZABRINA TRAYLOR MD (09/23/2021 12:01 AM) [facility] DICTATED and SIGNED BY: ZABRINA TRAYLOR MD DATE: 09/23/212021 PROCEDURE: KNEE RIGHT 4V Study: XR KNEE 4 VIEWS WITH PATELLA_RT Indication: Knee pain. Comparison: 07/04/2018 Findings: Knee arthroplasty hardware is intact and without any evidence for loosening. Partially imaged femur intramedullary solange with redemonstration of two fractured screw fragments at the medial aspect of the distal femur. 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 The configuration of the fracture is unchanged noting differences in positioning from the most recent comparison. Diffuse osteopenia. No newly apparent fracture. Knee joint effusion and/or postoperative synovial thickening. Similar distention of the suprapatellar recess from the comparison. On one of the AP views there is asymmetric soft tissue density medial to the distal femur. Impression: 1. Intact and well fixated total knee arthroplasty construct. Partially imaged femur intramedullary nail is without appreciable change again with two fractured screw fragments along its medial margin. 2. 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 No newly seen fracture considering osteopenia. 3. Knee joint effusion and/or postoperative synovial thickening with similar distention of the suprapatellar recess in relation to the 2019 comparison. 4. On one view there is asymmetric soft tissue density medial to the distal femur the etiology of which and significance is uncertain (see sesay image). Contusion is possible if there has been recent injury though this also could be physiologic soft tissues which are accentuated by patient obliquity. Correlate for swelling in this region. Electronically signed by: ZABRINA TRAYLOR MD (09/23/2021 12:17 AM) [facility] DICTATED and SIGNED BY: ZABRINA TRAYLOR MD DATE: 09/23/21 0009 Course & Med Decision Making: Course & Med Decision Making Pertinent Labs and Imaging studies reviewed. (See chart for details) This is a 86-year-old female patient presented to the ED today with right knee pain, right lower extremity pain, symptoms for 48 hours. Patient states she is unable to bear weight on the right lower extremity for the last 2 days. Venous Doppler of the right lower extremity is negative. Right knee x-rays interpreted by radiologist were negative for any acute findings. Patient was admitted under Dr. Preston. Routine consult placed for orthopedic doctor Rambo Disclaimer: Rambo Disclaimer: This electronic medical record was generated, in whole or in part, using a voice recognition dictation system. Departure Departure Impression: Primary Impression: Right knee pain Qualified Codes: M25.561 - Pain in right knee Additional Impressions: Right leg pain Difficulty walking Disposition: ADMITTED INPATIENT Condition: STABLE Referrals: NICOLE LIZAMA MD (PCP) JATIN MENDES APRN Sep 23, 2021 00:00
--- NOTE | 2021-09-23 00:04 | RAD ---
STUDY: US DPLX VENOUS EXTREMITY LOWER RT INDICATION: Right lower extremity pain and swelling. TECHNIQUE: Color-flow and pulsed wave duplex ultrasound with compression of venous structures of the right lower extremity. COMPARISON: None Available FINDINGS: Duplex ultrasound with compression of the deep venous structures of the right lower extremity from th e common femoral vein through the popliteal vein is negative for DVT. The posterior tibial and peroneal veins are segmentally visualized and patent where seen. Normal veno us waveforms and augmentation are noted throughout. IMPRESSION: No deep venous thrombosis identified throughout the right lower extremity. Electronically signed by: ZABRINA TRAYLOR MD (09/23/2021 12:01 AM) [facility]
[2021-09-23 00:05] LABS: ALBUMIN 2.6 g/dL (3.4-5.0); ALBUMIN/GLOBULIN RATIO 0.5 (1.0-1.7); C-REACTIVE PROTEIN 55.2 mg/L (0-3.3); TOTAL BILIRUBIN 0.3 mg/dL (0.2-1.0); TOTAL PROTEIN 7.5 g/dL (6.4-8.2)
--- NOTE | 2021-09-23 00:20 | RAD ---
Study: XR KNEE 4 VIEWS WITH PATELLA_RT Indication: Knee pain. Comparison: 07/04/2018 Findings: Knee arthroplasty hardware is intact and without any evidence for loosening. Partially imaged femur i ntramedullary solange with redemonstration of two fractured screw fragments at the medial aspect of the d istal femur. 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 The configurat ion of the fracture is unchanged noting differences in positioning from the most recent comparison. D iffuse osteopenia. No newly apparent fracture. Knee joint effusion and/or postoperative synovial thickening. Similar distention of the suprapatellar recess from the comparison. On one of the AP views there is asymmetric soft tissue density medial to the distal femur. Impression: 1. Intact and well fixated total knee arthroplasty construct. Partially imaged femur intramedullary n ail is without appreciable change again with two fractured screw fragments along its medial margin. 2. 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 No newly seen fracture consideri ng osteopenia. 3. Knee joint effusion and/or postoperative synovial thickening with similar distention of the suprap atellar recess in relation to the 2019 comparison. 4. On one view there is asymmetric soft tissue density medial to the distal femur the etiology of whi ch and significance is uncertain (see sesay image). Contusion is possible if there has been recent inju ry though this also could be physiologic soft tissues which are accentuated by patient obliquity. Cor relate for swelling in this region. Electronically signed by: ZABRINA TRAYLOR MD (09/23/2021 12:17 AM) [facility]
[2021-09-23 00:25] LABS: PLT ESTIMATE INCREASED (ADEQUATE)
[2021-09-23 00:26] LABS: ANISOCYTOSIS SLIGHT; HYPOCHROMIA SLIGHT; MICROCYTOSIS MOD
[2021-09-23] MEDS ORDERED: NAPR500T8 PO (02:03)
[2021-09-23] MEDS ORDERED: LEVO88TA4 PO (02:03)
[2021-09-23] MEDS ORDERED: CHOL5000 PO (02:03)
[2021-09-23] MEDS ORDERED: ACET325T9 PO (02:03)
[2021-09-23] MEDS ORDERED: AMLO2.5T5 PO (02:03)
[2021-09-23] MEDS ORDERED: HYDR2TAB31 PO (02:03)
[2021-09-23] MEDS ORDERED: CALC200T3 PO (02:03)
[2021-09-23] MEDS ORDERED: POLY17PO29 PO (02:43)
[2021-09-23] MEDS ORDERED: CALCIUM CARBONATE 500 MG TAB.CHEW PO PRN (02:45)
[2021-09-23] MEDS ORDERED: POLYETHYLENE GLYCOL 3350 17 GM PACKET. PO PRN (02:45)
[2021-09-23] MEDS ORDERED: ACETAMINOPHEN 325 MG TABLET. PO SCH (02:45)
[2021-09-23] MEDS: HYDROmorphone 2 MG TABLET PO PRN ×4 (03:11→20:53)
[2021-09-23] MEDS: LEVOTHYROXINE 88 MCG TABLET PO SCH (06:05)
--- NOTE | 2021-09-23 07:18 | PDOC1 ---
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 Her symptoms have been progressive over the last week and she actually was seen outpatient for some medial swelling that comes and goes. She lives alone, and notes for the last 48 hours prior to coming to ED she has been unable to bear weight on the right lower extremity. She feels that about to give out and does have pain that over a week ago was inferior to patella but now is superior to her patella and medially and notices more swelling and warmth superior medially in the knee. When she rests lays down and sits down the pain resolves but the pain is unbearable she sees stars it is 10 out of 10 when she attempts to bear weight. No falls or other trauma. Historically she notes total knee replacement electively in 2006 at [facility]. She was treated with transfemoral nail for a femur fracture with Dr. Fuchs in 2016 and had a spontaneous periprosthetic fracture after that and has previously had some serous drainage from her knee over 5 years ago and has dealt with some intermittent chronic pain for which she takes oral Dilaudid outpatient. She notes her primary care physician has noted elevated inflammatory markers for quite some time. WBC 12.8, Hb 10, platelets of 97, sed rate 49, CRP 55.2, NA 134, K4.5, BUN 27, CR 1.2, glucose 118, albumin 2.6, calcium 8.8, bilirubin 0.3, AST 15, ALT 15, alkaline phosphatase 99. Right knee radiograph with intact right knee arthroplasty and intact femoral intramedullary nail, knee joint effusion. Right lower extremity venous Doppler negative for DVT Past Medical History Cardiovascular: HTN, Hyperlipidemia Pulmonary: Pneumonia GI: Constipation, Diverticulosis, GERD, Hemorrhoids, Other Heme/Onc: No pertinent hx Hepatobiliary: No pertinent hx Psych: Anxiety Musculoskeletal: low back pain, Osteoarthritis, Other Rheumatologic: No pertinent hx Infectious disease: No pertinent hx Renal/: No pertinent hx Endocrine: No pertinent hx, Hypothyroidism Past Surgical History Past Surgical History: Appendectomy, Cataract Removal, Total knee replacement (right), Tonsillectomy, Hysterectomy, Other Family History Family History: Cancer Social History Smoke: No ALCOHOL: none Drugs: None Current Problem List Problem List Problems Medical Problems: (1) Difficulty walking Status: Acute (2) Right knee pain Status: Acute Current Medications Current Medications Current Medications Ondansetron HCl (Zofran) 4 mg PRN Q8HRS PRN IVP NAUSEA/VOMITING; Start 09/22/21 at 23:15; Stop 09/23/21 at 23:14 Acetaminophen (Tylenol) 650 mg PRN Q4HRS PRN PO FEVER > 100.3'F; Start 09/22/21 at 23:15; Stop 09/23/21 at 23:14 Hydromorphone HCl (Dilaudid) 2 mg PRN Q4HRS PRN PO PAIN; Start 09/22/21 at 23:15; Stop 09/23/21 at 02:59; Status DC Acetaminophen (Tylenol) 650 mg PRN Q4HRS PO ; Start 09/23/21 at 02:45; Stop 09/23/21 at 03:00; Status DC Calcium Carbonate/ Glycine (Tums) 500 mg PRN Q4HRS PRN PO INDIGESTION; Start 09/23/21 at 02:45 Vitamin D (Vitamin D3) 5,000 unit DAILY PO ; Start 09/23/21 at 09:00 Docusate Sodium (Colace) 100 mg HS PO ; Start 09/23/21 at 21:00 Hydromorphone HCl (Dilaudid) 2 mg PRN Q4HRS PRN PO pain MODERATE/SEVERE Last administered on 09/23/21at 03:11; Start 09/23/21 at 02:45 Levothyroxine Sodium (Synthroid) 88 mcg DAILY06 PO Last administered on 09/23/21at 06:05; Start 09/23/21 at 06:00 Amlodipine Besylate (Norvasc) 2.5 mg DAILY PO ; Start 09/23/21 at 09:00 Naproxen (Naprosyn) 500 mg BID PO ; Start 09/23/21 at 09:00 Polyethylene Glycol (miraLAX PACKET) 17 gm PRN DAILY PRN PO CONSTIPATION; Start 09/23/21 at 02:45 Acetaminophen (Tylenol) 650 mg PRN Q4HRS PRN PO MILD PAIN / TEMP > 100.3'F; Start 09/23/21 at 03:15 Active Scripts Active Colace 2-in-1 Tablet (Sennosides/Docusate Sodium) 1 Each Tablet 1 Each PO QHS PRN Anusol-Hc (Hydrocortisone Acetate) 25 Mg Supp.rect 1 Supp RC BID PRN For rectal bleeding due to internal hemorrhoids Flagyl (Metronidazole) 500 Mg Tablet 1 Tab PO BID Cipro (Ciprofloxacin Hcl) 500 Mg Tablet 1 Tab PO BID Ondansetron Odt (Ondansetron) 4 Mg Tab.rapdis 4 Mg PO PRN Q8HRS PRN Dilaudid (Hydromorphone Hcl) 4 Mg Tablet 4 Mg PO PRN Q4HRS PRN 30 Days Xanax (Alprazolam) 0.25 Mg Tablet 0.25 Mg PO HS 30 Days Famotidine 20 Mg Tablet 20 Mg PO BID 30 Days Feosol (Ferrous Sulfate) 325 Mg Tablet 325 Mg PO BID 30 Days Miralax (Polyethylene Glycol 3350) 17 Gm Powd.pack 1 Packet PO DAILY Milk Of Magnesia (Magnesium Hydroxide) 2,400 Mg/10 Ml Oral.susp 2,400 Mg PO DAILY 30 Days Reported Miralax (Polyethylene Glycol 3350) 17 Gm Powd.pack 1 Packet PO PRN DAILY PRN 2 Days dissolve in water Vitamin D3 (Vitamin D) 125 Mcg Capsule 125 Mcg PO DAILY 5,000 UNITS = 125 MCG Tums (Calcium Carbonate) 200 Mg Tab.chew 200 Mg PO PRN Q4HRS PRN Amlodipine Besylate 2.5 Mg Tablet 2.5 Mg PO DAILY Dilaudid (Hydromorphone Hcl) 2 Mg Tablet 1 Tab PO PRN Q4-6HRS PRN MDD 2 Tablet(s) 5 Days Tylenol (Acetaminophen) 325 Mg Tablet 2 Tab PO PRN Q4HRS Naproxen 500 Mg Tablet.dr 1 Tab PO BID Levothyroxine Sodium 88 Mcg Tablet 1 Tab PO DAILY Hydrocodone-Ibuprofen 7.5-200 (Hydrocodone/Ibuprofen) 1 Each Tablet 2 Tab PO PRN Q4HRS PRN Tylenol (Acetaminophen) 325 Mg Tablet 1,000 Mg PO PRN Q4HRS PRN Calcium Citrate +Vit D3 Tablet (Calcium Citrate/Vitamin D3) 1 Each Tablet 2 Tab PO DAILY Calcium + D3 Er Tablet (Calcium Carb & Cit/Vitamin D3) 1 Each Tablet.er 1 Each PO Docusate Sodium 100 Mg Capsule 1 Cap PO HS Probiotic (Lactobacillus Combo No.11) 1 Each Cap.sprink 1 Each PO DAILY Centrum Silver Women Tablet (Multivits-Min/Iron/FA/Lutein) 1 Each Tablet 1 Each PO DAILY Felodipine Er (Felodipine) 5 Mg Tab.er.24h 1 Tab PO DAILY Levothyroxine Sodium 75 Mcg Tablet 75 Mcg PO DAILYAC Allergies Allergies: Coded Allergies: Influenza Virus Vaccines (Verified Allergy, Severe, Shortness of Air, 04/23/17) codeine (Verified Allergy, Mild, 09/14/18) tramadol (Verified Allergy, Mild, 09/14/18) hydrocodone (Verified Adverse Reaction, Mild, Itching, 10/24/17) ROS General: YES: Fatigue, Malaise; No: Chills, Night Sweats, Appetite, Other PSYCHOLOGICAL ROS: YES: Anxiety; No: Behavioral Disorder, Concentration difficultie, Decreased libido, Depression, Disorientation, Hallucinations, Hostility, Irritablity, Memory difficulties, Mood Swings, Obsessive thoughts, Physical abuse, Sexual abuse, Sleep disturbances, Suicidal ideation, Other Eyes: No Blurry vision, No Decreased vision, No Double vision, No Dry eyes, No Excessive tearing, No Eye Pain, No Itchy Eyes, No Loss of vision, No Photophobia, No Scotomata, No Uses contacts, No Uses glasses, No Other HEENT: No: Heacaches, Visual Changes, Hearing change, Nasal congestion, Nasal discharge, Oral lesions, Sinus pain, Sore Throat, Epistaxis, Sneezing, Snoring, Tinnitus, Vertigo, Vocal changes, Other ALLERGY AND IMMUNOLOGY: No: Hives, Insect Bite Sensitivity, Itchy/Watery Eyes, Nasal Congestion, Post Nasal Drip, Seasonal Allergies, Other Hematological and Lymphatic: No: Bleeding Problems, Blood Clots, Blood Transfusions, Brusing, Night Sweats, Pallor, Swollen Lymph Nodes, Other ENDOCRINE: No: Breast Changes, Galactorrhea, Hair Pattern Changes, Hot Flashes, Malaise/lethargy, Mood Swings, Palpitations, Polydipsia/polyuria, Skin Changes, Temperature Intolerance, Unexpected Weight Changes, Other Breast: No New/Changing Breast Lumps, No Nipple changes, No Nipple discharge, No Other Respiratory: No: Cough, Hemoptysis, Orthopnea, Pleuritic Pain, Shortness of breath, SOB with excertion, Sputum Changes, Stridor, Tachypnea, Wheezing, Other Cardiovascular: No Chest Pain, No Palpitations, No Orthopnea, No Paroxysmal Noc. Dyspnea, No Edema, No Lt Headedness, No Other Gastrointestinal: No Nausea, No Vomiting, No Abdominal Pain, No Diarrhea, No Constipation, No Melena, No Hematochezia, No Other Genitourinary: No Dysuria, No Frequency, No Incontinence, No Hematuria, No Retention, No Discharge, No Urgency, No Pain, No Flank Pain, No Other, No , No , No , No , No , No , No Musculoskeletal: Yes Gait Disturbance, Yes Joint Pain, Yes Joint Stiffness, Yes Joint Swelling, Yes Muscle Pain, Yes Muscular Weakness; No Pain In:, No Swelling In:, No Other Neurological: Yes Gait Disturbance; No Behavorial Changes, No Bowel/Bladder ControlChng, No Confusion, No Dizziness, No Headaches, No Impaired Coord/balance, No Memory Loss, No Numbness/Tingling, No Seizures, No Speech Problems, No Tremors, No Visual Changes, No Weakness, No Other Skin: No Dry Skin, No Eczema, No Hair Changes, No Lumps, No Mole Changes, No Mottling, No Nail Changes, No Pruritus, No Rash, No Skin Lesion Changes, No Other, No Acne Physical Exam General: Alert, Oriented X3, Cooperative, mild distress HEENT: Atraumatic, PERRLA, EOMI, Mucous membr. moist/pink Lungs: Clear to auscultation, Normal air movement Heart: S1S2, RRR, no thrills, no rubs, no gallops, no murmurs Abdomen: Normal bowel sounds, Soft, No tenderness, No hepatosplenomegaly, No m asses Rectal Exam: not examined Extremities: No clubbing, No cyanosis, No edema, Normal pulses, Other (Right knee with patellar scarring superior medial partially reducible effusion is warm tender.) Skin: Other (Right knee medially warm) Neuro: Normal speech, Strength at 5/5 X4 ext, Normal tone, Sensation intact, Cranial nerves 3-12 NL, Reflexes 2+ Psych/Mental Status: Mental status NL, Mood NL Vitals Vitals Vital Signs Date Time Temp Pulse Resp B/P (MAP) Pulse Ox O2 Delivery O2 Flow Rate FiO2 09/23/21 03:00 98.8 93 22 141/69 (93) 92 Room Air 98.8 Labs Labs Laboratory Tests Test 09/22/21 23:42 White Blood Count 12.8 x10^3/uL (4.0-11.0) Red Blood Count 4.25 x10^6/uL (3.50-5.40) Hemoglobin 10.0 g/dL (12.0-15.5) Hematocrit 29.9 % (36.0-47.0) Mean Corpuscular Volume 70 fL (79-100) Mean Corpuscular Hemoglobin 23 pg (25-35) Mean Corpuscular Hemoglobin Concent 33 g/dL (31-37) Red Cell Distribution Width 17.0 % (11.5-14.5) Platelet Count 797 x10^3/uL (140-400) Neutrophils (%) (Auto) 70 % (31-73) Lymphocytes (%) (Auto) 15 % (24-48) Monocytes (%) (Auto) 10 % (0-9) Eosinophils (%) (Auto) 3 % (0-3) Basophils (%) (Auto) 1 % (0-3) Neutrophils # (Auto) 9.0 x10^3/uL (1.8-7.7) Lymphocytes # (Auto) 2.0 x10^3/uL (1.0-4.8) Monocytes # (Auto) 1.3 x10^3/uL (0.0-1.1) Eosinophils # (Auto) 0.4 x10^3/uL (0.0-0.7) Basophils # (Auto) 0.1 x10^3/uL (0.0-0.2) Platelet Estimate Increased (ADEQUATE) Hypochromasia Slight Anisocytosis Slight Microcytosis Mod Erythrocyte Sedimentation Rate 49 (0-25) Sodium Level 134 mmol/L (136-145) Potassium Level 4.5 mmol/L (3.5-5.1) Chloride Level 101 mmol/L (98-107) Carbon Dioxide Level 26 mmol/L (21-32) Anion Gap 7 (6-14) Blood Urea Nitrogen 27 mg/dL (7-20) Creatinine 1.2 mg/dL (0.6-1.0) Estimated GFR (Cockcroft-Gault) 42.8 BUN/Creatinine Ratio 23 (6-20) Glucose Level 118 mg/dL (70-99) Calcium Level 8.8 mg/dL (8.5-10.1) Total Bilirubin 0.3 mg/dL (0.2-1.0) Aspartate Amino Transf (AST/SGOT) 15 U/L (15-37) Alanine Aminotransferase (ALT/SGPT) 15 U/L (14-59) Alkaline Phosphatase 99 U/L (46-116) C-Reactive Protein, Quantitative 55.2 mg/L (0-3.3) Total Protein 7.5 g/dL (6.4-8.2) Albumin 2.6 g/dL (3.4-5.0) Albumin/Globulin Ratio 0.5 (1.0-1.7) Laboratory Tests Test 09/22/21 23:42 White Blood Count 12.8 x10^3/uL (4.0-11.0) Red Blood Count 4.25 x10^6/uL (3.50-5.40) Hemoglobin 10.0 g/dL (12.0-15.5) Hematocrit 29.9 % (36.0-47.0) Mean Corpuscular Volume 70 fL (79-100) Mean Corpuscular Hemoglobin 23 pg (25-35) Mean Corpuscular Hemoglobin Concent 33 g/dL (31-37) Red Cell Distribution Width 17.0 % (11.5-14.5) Platelet Count 797 x10^3/uL (140-400) Neutrophils (%) (Auto) 70 % (31-73) Lymphocytes (%) (Auto) 15 % (24-48) Monocytes (%) (Auto) 10 % (0-9) Eosinophils (%) (Auto) 3 % (0-3) Basophils (%) (Auto) 1 % (0-3) Neutrophils # (Auto) 9.0 x10^3/uL (1.8-7.7) Lymphocytes # (Auto) 2.0 x10^3/uL (1.0-4.8) Monocytes # (Auto) 1.3 x10^3/uL (0.0-1.1) Eosinophils # (Auto) 0.4 x10^3/uL (0.0-0.7) Basophils # (Auto) 0.1 x10^3/uL (0.0-0.2) Platelet Estimate Increased (ADEQUATE) Hypochromasia Slight Anisocytosis Slight Microcytosis Mod Erythrocyte Sedimentation Rate 49 (0-25) Sodium Level 134 mmol/L (136-145) Potassium Level 4.5 mmol/L (3.5-5.1) Chloride Level 101 mmol/L (98-107) Carbon Dioxide Level 26 mmol/L (21-32) Anion Gap 7 (6-14) Blood Urea Nitrogen 27 mg/dL (7-20) Creatinine 1.2 mg/dL (0.6-1.0) Estimated GFR (Cockcroft-Gault) 42.8 BUN/Creatinine Ratio 23 (6-20) Glucose Level 118 mg/dL (70-99) Calcium Level 8.8 mg/dL (8.5-10.1) Total Bilirubin 0.3 mg/dL (0.2-1.0) Aspartate Amino Transf (AST/SGOT) 15 U/L (15-37) Alanine Aminotransferase (ALT/SGPT) 15 U/L (14-59) Alkaline Phosphatase 99 U/L (46-116) C-Reactive Protein, Quantitative 55.2 mg/L (0-3.3) Total Protein 7.5 g/dL (6.4-8.2) Albumin 2.6 g/dL (3.4-5.0) Albumin/Globulin Ratio 0.5 (1.0-1.7) Images Images XR KNEE 4 VIEWS WITH PATELLA_RT Indication: Knee pain. Comparison: 07/04/2018 Findings: Knee arthroplasty hardware is intact and without any evidence for loosening. Partially imaged femur intramedullary solange with redemonstration of two fractured screw fragments at the medial aspect of the distal femur. 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 The configuration of the fracture is unchanged noting differences in positioning from the most recent comparison. Diffuse osteopenia. No newly apparent fracture. Knee joint effusion and/or postoperative synovial thickening. Similar distention of the suprapatellar recess from the comparison. On one of the AP views there is asymmetric soft tissue density medial to the distal femur. Impression: 1. Intact and well fixated total knee arthroplasty construct. Partially imaged femur intramedullary nail is without appreciable change again with two fractured screw fragments along its medial margin. 2. 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 No newly seen fracture considering osteopenia. 3. Knee joint effusion and/or postoperative synovial thickening with similar distention of the suprapatellar recess in relation to the 2019 comparison. 4. On one view there is asymmetric soft tissue density medial to the distal femur the etiology of which and significance is uncertain (see sesay image). Contusion is possible if there has been recent injury though this also could be physiologic soft tissues which are accentuated by patient obliquity. Correlate for swelling in this region. VTE Prophylaxis Ordered VTE Prophylaxis Devices: No VTE Pharmacological Prophylaxi: Yes Assessment/Plan Assessment/Plan Right knee pain - some concern for inflammatory arthritis. Notes prior RF of 16 outpatient and negative ARIELLE. Will check CCP, Uric acid and consult orthopedic surgery to consider possible alternative such as septic arthritis Right knee effusion - previously serous fluid analysis per patient report. The warmth and pain are concern for inflammatory arthritis or septic arthritis. Will consult ID and orthopedic surgery. No immediate antibiotic indication SIRS - leukocytosis, tachycardia, concerning for possible joint infection Unable to walk - due to right knee pain, weakness. No focal neurologic deficits. PT after ortho eval HLD - statin HTN - home meds Chronic osteoarthritis Hypothyroidism - cont home meds Obesity - counseled on weight loss Anemia - will check iron studies Severe protein calorie malnutrition - likely from arthritis FEN - Regular diet PPX - heparin FULL CODE DIspo - inpatient. As of now would need inpatient rehab vs SNF upon d/c given her inability to ambulate Justifications for Admission Other Justification JEN WISEMAN MD Sep 23, 2021 07:18
[2021-09-23] MEDS: CHOLECALCIFEROL (VITAMIN D3) 5,000 UNIT CAPSULE PO SCH (08:44)
[2021-09-23] MEDS: NAPROXEN 500 MG TABLET PO SCH ×2 (08:45→20:52)
[2021-09-23] MEDS: ACETAMINOPHEN 325 MG TABLET. PO PRN ×2 (08:53→20:52)
[2021-09-23] MEDS: LACTOBACILLUS RHAMNOSUS GG 1 CAPSULE. PO SCH (12:23)
[2021-09-23] MEDS: MULTIVITAMIN with MINERAL TABLET. PO SCH (12:23)
--- NOTE | 2021-09-23 17:03 | PDOC2 ---
CONSULT Date of Consult Date of Consult DATE: 09/23/21 TIME: 16:50 Reason for Consult Reason for Consult: Right knee pain History of Present Illness Reason for Visit: Patient reports that she has been having pain in her right knee for several days and it has gotten worse to the point that she was unable to walk. She reports that 2 weeks ago she started having swelling medially that was very firm and says it has gone down but she still has swelling medially. She says that it got so bad last night that she was unable to walk and she came to the emergency room at [facility]. She was admitted for inability to ambulate. Orthopedics was consulted for the pain in her right knee. Patient reports that in October 2005 she had a right total knee arthroplasty with Dr. Alarcon. She said that she did well after surgery. In April 2016, she developed a fracture in her distal femur that was nondisplaced and was being treated conservatively. She went to rehab and put weight on the right leg and therapy which caused the fracture to displace. She had a retrograde femoral nail at the end of April 2016. She says that she also had 2 irrigation debr idements for an area along her anterior surgical scar that opened and drained. She says that she was told it was synovial fluid that was draining. She says that in November 2016, she developed another fracture but it did not require surgery. She does not have any known symptoms of infection. She has been living at home by herself and doing well. Since 2017, she has used a walker but has been able to ambulate at home. She does use an electric chair and says that overall her mobility has decreased over the past few years. She is unable to drive now. She says that she has osteoarthritis in multiple areas which causes most of her immobility. She denies any radicular symptoms but reports that she has a viselike feeling on her foot. She does note that she has bad arthritis in her back. Past Medical History Past Medical History Significant for frailty, hypertension, hypothyroidism, GERD, osteoarthritis, macular degeneration, chronic pain, possible RA Cardiovascular: HTN, Hyperlipidemia Pulmonary: Pneumonia GI: Constipation, Diverticulosis, GERD, Hemorrhoids, Other Heme/Onc: No pertinent hx Hepatobiliary: No pertinent hx Psych: Anxiety Musculoskeletal: low back pain, Osteoarthritis, Other Rheumatologic: No pertinent hx Infectious disease: No pertinent hx Renal/: No pertinent hx Endocrine: No pertinent hx, Hypothyroidism Past Surgical History Past Surgical History See HPI for right lower extremity surgeries. Also positive for hysterectomy, appendectomy, tonsillectomy, abdominal adhesion removal and colonoscopy Past Surgical History: Appendectomy, Cataract Removal, Total knee replacement (right), Tonsillectomy, Hysterectomy, Other Family History Family History [place] Family History: Cancer Social History Social History Patient denies current or previous tobacco use. She says that she used to drink a glass of wine occasionally but none for at least 5 years. No drug use. She is homebound and lives alone but has family close the area. 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 No ALCOHOL: none Drugs: None Lives: Alone Current Problem List Problem List Problems Medical Problems: (1) Difficulty walking Status: Acute (2) Right knee pain Status: Acute Current Medications Current Medications Patient reports home medications of amlodipine, levothyroxine, Tums, naproxen, Tylenol, vitamin D, Centrum Silver, probiotic, Dilaudid, stool softener and MiraLAX Current Medications Ondansetron HCl (Zofran) 4 mg PRN Q8HRS PRN IVP NAUSEA/VOMITING; Start 09/22/21 at 23:15; Stop 09/23/21 at 23:14 Acetaminophen (Tylenol) 650 mg PRN Q4HRS PRN PO FEVER > 100.3'F; Start 09/22/21 at 23:15; Stop 09/23/21 at 23:14 Hydromorphone HCl (Dilaudid) 2 mg PRN Q4HRS PRN PO PAIN; Start 09/22/21 at 23:15; Stop 09/23/21 at 02:59; Status DC Acetaminophen (Tylenol) 650 mg PRN Q4HRS PO ; Start 09/23/21 at 02:45; Stop 09/23/21 at 03:00; Status DC Calcium Carbonate/ Glycine (Tums) 500 mg PRN Q4HRS PRN PO INDIGESTION; Start 09/23/21 at 02:45 Vitamin D (Vitamin D3) 5,000 unit DAILY PO Last administered on 09/23/21at 08:44; Start 09/23/21 at 09:00 Docusate Sodium (Colace) 100 mg HS PO ; Start 09/23/21 at 21:00 Hydromorphone HCl (Dilaudid) 2 mg PRN Q4HRS PRN PO pain MODERATE/SEVERE Last administered on 09/23/21 14:49; Start 09/23/21 at 02:45 Levothyroxine Sodium (Synthroid) 88 mcg DAILY06 PO Last administered on 09/23/21 06:05; Start 09/23/21 at 06:00 Amlodipine Besylate (Norvasc) 2.5 mg DAILY PO Last administered on 09/23/21 08:45; Start 09/23/21 at 09:00 Naproxen (Naprosyn) 500 mg BID PO Last administered on 09/23/21 08:45; Start 09/23/21 at 09:00 Polyethylene Glycol (miraLAX PACKET) 17 gm PRN DAILY PRN PO CONSTIPATION Last administered on 09/23/21 08:43; Start 09/23/21 at 02:45 Acetaminophen (Tylenol) 650 mg PRN Q4HRS PRN PO MILD PAIN / TEMP > 100.3'F Last administered on 09/23/21 08:53; Start 09/23/21 at 03:15 Lactobacillus Rhamnosus (Culturelle) 1 cap DAILY PO Last administered on 09/23/21 12:23; Start 09/23/21 at 12:00 Multivitamins (Thera M Plus) 1 tab DAILY PO Last administered on 09/23/21 12:23; Start 09/23/21 at 12:00 Ondansetron HCl (Zofran Odt) 4 mg PRN Q4HRS PRN PO NAUSEA; Start 09/23/21 at 15:00 Active Scripts Active Colace 2-in-1 Tablet (Sennosides/Docusate Sodium) 1 Each Tablet 1 Each PO QHS PRN Anusol-Hc (Hydrocortisone Acetate) 25 Mg Supp.rect 1 Supp RC BID PRN For rectal bleeding due to internal hemorrhoids Flagyl (Metronidazole) 500 Mg Tablet 1 Tab PO BID Cipro (Ciprofloxacin Hcl) 500 Mg Tablet 1 Tab PO BID Ondansetron Odt (Ondansetron) 4 Mg Tab.rapdis 4 Mg PO PRN Q8HRS PRN Dilaudid (Hydromorphone Hcl) 4 Mg Tablet 4 Mg PO PRN Q4HRS PRN 30 Days Xanax (Alprazolam) 0.25 Mg Tablet 0.25 Mg PO HS 30 Days Famotidine 20 Mg Tablet 20 Mg PO BID 30 Days Feosol (Ferrous Sulfate) 325 Mg Tablet 325 Mg PO BID 30 Days Miralax (Polyethylene Glycol 3350) 17 Gm Powd.pack 1 Packet PO DAILY Milk Of Magnesia (Magnesium Hydroxide) 2,400 Mg/10 Ml Oral.susp 2,400 Mg PO DAILY 30 Days Reported Miralax (Polyethylene Glycol 3350) 17 Gm Powd.pack 1 Packet PO PRN DAILY PRN 2 Days dissolve in water Vitamin D3 (Vitamin D) 125 Mcg Capsule 125 Mcg PO DAILY 5,000 UNITS = 125 MCG Tums (Calcium Carbonate) 200 Mg Tab.chew 200 Mg PO PRN Q4HRS PRN Amlodipine Besylate 2.5 Mg Tablet 2.5 Mg PO DAILY Dilaudid (Hydromorphone Hcl) 2 Mg Tablet 1 Tab PO PRN Q4-6HRS PRN MDD 2 Tablet(s) 5 Days Tylenol (Acetaminophen) 325 Mg Tablet 2 Tab PO PRN Q4HRS Naproxen 500 Mg Tablet.dr 1 Tab PO BID Levothyroxine Sodium 88 Mcg Tablet 1 Tab PO DAILY Hydrocodone-Ibuprofen 7.5-200 (Hydrocodone/Ibuprofen) 1 Each Tablet 2 Tab PO PRN Q4HRS PRN Tylenol (Acetaminophen) 325 Mg Tablet 1,000 Mg PO PRN Q4HRS PRN Calcium Citrate +Vit D3 Tablet (Calcium Citrate/Vitamin D3) 1 Each Tablet 2 Tab PO DAILY Calcium + D3 Er Tablet (Calcium Carb & Cit/Vitamin D3) 1 Each Tablet.er 1 Each PO Docusate Sodium 100 Mg Capsule 1 Cap PO HS Probiotic (Lactobacillus Combo No.11) 1 Each Cap.sprink 1 Each PO DAILY Centrum Silver Women Tablet (Multivits-Min/Iron/FA/Lutein) 1 Each Tablet 1 Each PO DAILY Felodipine Er (Felodipine) 5 Mg Tab.er.24h 1 Tab PO DAILY Levothyroxine Sodium 75 Mcg Tablet 75 Mcg PO DAILYAC Allergies Allergies: Coded Allergies: Influenza Virus Vaccines (Verified Allergy, Severe, Shortness of Air, 04/23/17) codeine (Verified Allergy, Mild, 09/14/18) tramadol (Verified Allergy, Mild, 09/14/18) Sulfa (Sulfonamide Antibiotics) (Verified Allergy, 09/23/21) hydrocodone (Verified Adverse Reaction, Mild, Itching, 10/24/17) ROS Review of System Patient denies headache. No recent injuries. No blurry vision or double vision. No ringing in the ears or difficulty hearing. No difficulty swallowing. No diabetes. No chest pain or shortness of breath. No abdominal pain. She has occasional constipation. No diarrhea. No blood in the stool or urine. No dysuria. She has some depression from being homebound. Physical Exam Physical Exam Patient is alert and oriented. She interacts with exam appropriately. She is a good historian. The right lower extremity has intact skin. The knee has a well-healed total arthroplasty incision anteriorly. There is no erythema, warmth or induration. There is no drainage. She does have an area medial to her surgical incision that is swollen. No specific signs of infection here. No pain with passive range of motion of the knee. She can flex to approximately 90 actively. Calf is soft. She is able to feel light touch in the foot and moves her toes actively. Normal capillary refill. Vitals VITALS Vital Signs Date Time Temp Pulse Resp B/P (MAP) Pulse Ox O2 Delivery O2 Flow Rate FiO2 09/23/21 15:00 99.3 98 18 121/48 (72) 91 Room Air 99.3 Labs Labs Laboratory Tests Test 09/22/21 23:42 09/23/21 12:50 09/23/21 13:18 White Blood Count 12.8 x10^3/uL (4.0-11.0) Red Blood Count 4.25 x10^6/uL (3.50-5.40) Hemoglobin 10.0 g/dL (12.0-15.5) Hematocrit 29.9 % (36.0-47.0) Mean Corpuscular Volume 70 fL (79-100) Mean Corpuscular Hemoglobin 23 pg (25-35) Mean Corpuscular Hemoglobin Concent 33 g/dL (31-37) Red Cell Distribution Width 17.0 % (11.5-14.5) Platelet Count 797 x10^3/uL (140-400) Neutrophils (%) (Auto) 70 % (31-73) Lymphocytes (%) (Auto) 15 % (24-48) Monocytes (%) (Auto) 10 % (0-9) Eosinophils (%) (Auto) 3 % (0-3) Basophils (%) (Auto) 1 % (0-3) Neutrophils # (Auto) 9.0 x10^3/uL (1.8-7.7) Lymphocytes # (Auto) 2.0 x10^3/uL (1.0-4.8) Monocytes # (Auto) 1.3 x10^3/uL (0.0-1.1) Eosinophils # (Auto) 0.4 x10^3/uL (0.0-0.7) Basophils # (Auto) 0.1 x10^3/uL (0.0-0.2) Platelet Estimate Increased (ADEQUATE) Hypochromasia Slight Anisocytosis Slight Microcytosis Mod Erythrocyte Sedimentation Rate 49 (0-25) Sodium Level 134 mmol/L (136-145) Potassium Level 4.5 mmol/L (3.5-5.1) Chloride Level 101 mmol/L (98-107) Carbon Dioxide Level 26 mmol/L (21-32) Anion Gap 7 (6-14) Blood Urea Nitrogen 27 mg/dL (7-20) Creatinine 1.2 mg/dL (0.6-1.0) Estimated GFR (Cockcroft-Gault) 42.8 BUN/Creatinine Ratio 23 (6-20) Glucose Level 118 mg/dL (70-99) Calcium Level 8.8 mg/dL (8.5-10.1) Total Bilirubin 0.3 mg/dL (0.2-1.0) Aspartate Amino Transf (AST/SGOT) 15 U/L (15-37) Alanine Aminotransferase (ALT/SGPT) 15 U/L (14-59) Alkaline Phosphatase 99 U/L (46-116) C-Reactive Protein, Quantitative 55.2 mg/L (0-3.3) Total Protein 7.5 g/dL (6.4-8.2) Albumin 2.6 g/dL (3.4-5.0) Albumin/Globulin Ratio 0.5 (1.0-1.7) Uric Acid 4.3 mg/dL (2.6-6.0) Iron Level 13 ug/dL (50-170) Total Iron Binding Capacity 492 ug/dL (250-450) Iron Saturation 3 % (15-34) Laboratory Tests Test 09/22/21 23:42 09/23/21 12:50 09/23/21 13:18 White Blood Count 12.8 x10^3/uL (4.0-11.0) Red Blood Count 4.25 x10^6/uL (3.50-5.40) Hemoglobin 10.0 g/dL (12.0-15.5) Hematocrit 29.9 % (36.0-47.0) Mean Corpuscular Volume 70 fL (79-100) Mean Corpuscular Hemoglobin 23 pg (25-35) Mean Corpuscular Hemoglobin Concent 33 g/dL (31-37) Red Cell Distribution Width 17.0 % (11.5-14.5) Platelet Count 797 x10^3/uL (140-400) Neutrophils (%) (Auto) 70 % (31-73) Lymphocytes (%) (Auto) 15 % (24-48) Monocytes (%) (Auto) 10 % (0-9) Eosinophils (%) (Auto) 3 % (0-3) Basophils (%) (Auto) 1 % (0-3) Neutrophils # (Auto) 9.0 x10^3/uL (1.8-7.7) Lymphocytes # (Auto) 2.0 x10^3/uL (1.0-4.8) Monocytes # (Auto) 1.3 x10^3/uL (0.0-1.1) Eosinophils # (Auto) 0.4 x10^3/uL (0.0-0.7) Basophils # (Auto) 0.1 x10^3/uL (0.0-0.2) Platelet Estimate Increased (ADEQUATE) Hypochromasia Slight Anisocytosis Slight Microcytosis Mod Erythrocyte Sedimentation Rate 49 (0-25) Sodium Level 134 mmol/L (136-145) Potassium Level 4.5 mmol/L (3.5-5.1) Chloride Level 101 mmol/L (98-107) Carbon Dioxide Level 26 mmol/L (21-32) Anion Gap 7 (6-14) Blood Urea Nitrogen 27 mg/dL (7-20) Creatinine 1.2 mg/dL (0.6-1.0) Estimated GFR (Cockcroft-Gault) 42.8 BUN/Creatinine Ratio 23 (6-20) Glucose Level 118 mg/dL (70-99) Calcium Level 8.8 mg/dL (8.5-10.1) Total Bilirubin 0.3 mg/dL (0.2-1.0) Aspartate Amino Transf (AST/SGOT) 15 U/L (15-37) Alanine Aminotransferase (ALT/SGPT) 15 U/L (14-59) Alkaline Phosphatase 99 U/L (46-116) C-Reactive Protein, Quantitative 55.2 mg/L (0-3.3) Total Protein 7.5 g/dL (6.4-8.2) Albumin 2.6 g/dL (3.4-5.0) Albumin/Globulin Ratio 0.5 (1.0-1.7) Uric Acid 4.3 mg/dL (2.6-6.0) Iron Level 13 ug/dL (50-170) Total Iron Binding Capacity 492 ug/dL (250-450) Iron Saturation 3 % (15-34) Assessment/Plan Assessment/Plan Right knee pain with inability to walk Frailty Hypothyroidism Discussed that with her history of multiple surgeries and especially with the irrigation and debridement that she had to have twice after her intramedullary nail was done, there is a concern for infection. Her white count, platelets, CRP and sed rate are all elevated. We discussed that she could have a smoldering infection in the knee. That could be a reason for her pain. The infection certainly is not her joint at this time, if there is one. Given her history of spontaneous fracture without injury, she could have a new fracture that is not seen on x-rays. Her fracture site was not well visualized and the most recent films so nonunion would also be in the differential. We will have therapy work with her to see if we can get her ambulating. We will also get x-rays of her femur and a CT scan of her knee to see if there is any occult fracture. We will try to get the fracture site and the CT scan to nigel ceeate for nonunion. Discussed that she can be weightbearing as tolerated at this time. She also needs to have a work-up for osteoporosis, that can be done in the outpatient clinic. All of her questions were answered to her satisfaction. Orthopedics will follow up on testing and imaging. All imaging that was available was reviewed and compared with previous films in the hospital system. COLT TOWNSEND Sep 23, 2021 17:03
[2021-09-23 20:09] LABS: RHEUMATOID FACTOR 11.2 IU/mL (<14.0)
[2021-09-23] MEDS: ONDANSETRON ODT 4 MG TAB.RAPDIS. PO PRN (20:52)
[2021-09-23] MEDS: DOCUSATE SODIUM 100 MG CAPSULE. PO SCH (20:53)
[2021-09-23] MEDS: HEPARIN for SUB-Q USE 5,000 UNIT/ML VIAL. SQ SCH (21:12)
[2021-09-24] MEDS: HYDROmorphone 2 MG TABLET PO PRN ×3 (02:46→23:03)
[2021-09-24] MEDS: ACETAMINOPHEN 325 MG TABLET. PO PRN ×3 (02:46→21:06)
[2021-09-24 03:00] VITALS: BP 111/46
[2021-09-24] MEDS: LEVOTHYROXINE 88 MCG TABLET PO SCH (05:54)
[2021-09-24 07:00] VITALS: BP 107/59
[2021-09-24] MEDS: FERROUS SULFATE 325 MG TABLET. PO SCH (08:00)
[2021-09-24 08:28] LABS: BASO # 0.1 x10^3/uL (0.0-0.2); BASO % 1 % (0-3); EOS # 0.5 x10^3/uL (0.0-0.7); EOS % 5 % (0-3); HEMATOCRIT 27.2 % (36.0-47.0); HEMOGLOBIN 8.5 g/dL (12.0-15.5); LYMPH # 2.9 x10^3/uL (1.0-4.8); LYMPH % 26 % (24-48); MEAN CORPUSCULAR HEMOGLOBIN 22 pg (25-35); MEAN CORPUSCULAR HGB CONC 31 g/dL (31-37); MEAN CORPUSCULAR VOLUME 71 fL (79-100); MONO # 1.5 x10^3/uL (0.0-1.1); MONO % 14 % (0-9); NEUT # 6.2 x10^3/uL (1.8-7.7); NEUT % 55 % (31-73); PLATELET COUNT 585 x10^3/uL (140-400); RED BLOOD COUNT 3.83 x10^6/uL (3.50-5.40); RED CELL DISTRIBUTION WIDTH 17.1 % (11.5-14.5); WHITE BLOOD COUNT 11.3 x10^3/uL (4.0-11.0)
[2021-09-24 08:32] LABS: ALBUMIN 2.4 g/dL (3.4-5.0); ALBUMIN/GLOBULIN RATIO 0.5 (1.0-1.7); CALCIUM 8.3 mg/dL (8.5-10.1); CREATININE 1.2 mg/dL (0.6-1.0); GFR 42.8; POTASSIUM 4.8 mmol/L (3.5-5.1); TOTAL BILIRUBIN 0.3 mg/dL (0.2-1.0); TOTAL PROTEIN 7.1 g/dL (6.4-8.2)
--- NOTE | 2021-09-24 10:26 | RAD ---
EXAM: XR FEMUR_RIGHT 09/24/2021 8:33 AM CLINICAL INDICATION: Right thigh pain COMPARISON: Right femur radiograph 10/11/2017 TECHNIQUE: AP and lateral views of the right thigh FINDINGS: There is an intramedullary nail traversing and old distal femoral diaphyseal fracture. The re is lucency around the proximal end of the nail, and the proximal aspect of the nail now extends th rough the proximal femur by 4 cm, suggesting loosening and proximal migration. There is a suspected f racture of one or 2 of the distal screws. There is increased lucency around the heads of the distal s crews. There is left total knee prosthesis in expected alignment. No periprosthetic lucency around the femor al component. The tibial component is not well evaluated on this exam. The old distal femoral diaphyseal fracture appears more displaced compared to 10/11/2017. See CT of th e right lower extremity from the same day for evaluation of healing. No new fracture. There is a join t effusion at the knee. IMPRESSION: 1. Intramedullary nail traversing a distal femoral diaphyseal fracture. There is evidence of worsened hardware complication with fractures of several distal screws, and increased lucency around the scre ws and the nail. There also appears to be new proximal migration of the nail out of the proximal femu r by 4 cm. 2. Worsened alignment of the distal fracture compared to 10/11/2017. See the CT the right lower extrem ity performed on the same day for detailed evaluation of healing. Electronically signed by: Magi Land MD (09/24/2021 10:24 AM) [id number]
[2021-09-24] MEDS: MULTIVITAMIN with MINERAL TABLET. PO SCH (10:30)
[2021-09-24] MEDS: NAPROXEN 500 MG TABLET PO SCH ×2 (10:31→21:05)
[2021-09-24] MEDS: CHOLECALCIFEROL (VITAMIN D3) 5,000 UNIT CAPSULE PO SCH (10:31)
[2021-09-24] MEDS: LACTOBACILLUS RHAMNOSUS GG 1 CAPSULE. PO SCH (10:39)
[2021-09-24] MEDS: HEPARIN for SUB-Q USE 5,000 UNIT/ML VIAL. SQ SCH ×2 (10:46→21:14)
[2021-09-24 11:00] VITALS: BP 122/67
--- NOTE | 2021-09-24 11:49 | RAD ---
CT right knee without contrast PQRS statement: CT scans at this facility use dose reduction including either automated exposure cont rol, iterative reconstructions, and /or weight based radiation dosing via mA and kV modification when appropriate to reduce radiation dose to as low as reasonably achievable. HISTORY: Right knee pain. Occult fracture. COMPARISON: Right knee x-rays the 2021 FINDINGS: At the distal femoral shaft there is a chronic nonunion fracture bridged with a long femora l intramedullary nail which has distal interlocking screws. There are chronic fractures of 2 out of t he 3 screws similar to prior x-rays. Total knee arthroplasty. There is no bone lysis subjacent to the hardware of the arthroplasty or reso rption of bone cement to suggest loosening of the hardware, and no fracture of the distal femur under lying the knee arthroplasty hardware, patella, tibia or fibula. There is a large suprapatellar joint effusion, along the medial knee is also fluid somewhat obscured by streak artifact from the hardware this appears to be in continuity with the large joint effusion a nd likely accounts for the soft tissue swelling and recent x-rays. The upper aspect of the joint effu carole extends to the chronic nonunion distal femoral shaft fracture, the fracture fragments demonstrat e increased distraction compared to x-rays from 2018 and there is intramedullary bony lysis surroundi ng the nail at the proximal and distal fracture fragments as well as increased resorption of the tracie ical bone along the fracture since x-ray from 2018. There is also some bony lysis surrounding the tra cts of the screws. IMPRESSION: 1. 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 Since x-rays from 2018 there is increased distraction of the fracture fragments and bony lysis surrounding the intramedullary nail along the upper and lower fracture frag ments as well as surrounding the distal femoral interlocking screws. This raises suspicion of looseni ng of the hardware which may be due to foreign body reaction or infection. Chronic fractures of the d istal interlocking screws again noted. 2. Large joint effusion, the upper aspect of which extends in continuity to the chronic nonunion dist al femoral shaft fracture. Additionally there is asymmetric protrusion of the joint effusion into the medial knee soft tissues versus an adjacent large periarticular cyst, which represents the soft tiss ue swelling on recent x-rays. 3. Knee arthroplasty. No periprosthetic fracture or evidence of loosening at the knee arthroplasty. Electronically signed by: Chito Jordan MD (09/24/2021 11:47 AM) [facility]
--- NOTE | 2021-09-24 14:17 | PDOC ---
[facility] PROGRESS NOTE Date of Service DOS: DATE: 09/24/21 TIME: 14:15 Chief Complaint Chief Complaint Right knee pain - some concern for inflammatory arthritis. Notes prior RF of 16 outpatient and negative ARIELLE. Will check CCP, Uric acid and consult orthopedic surgery to consider possible alternative such as septic arthritis Right knee effusion - previously serous fluid analysis per patient report. The warmth and pain are concern for inflammatory arthritis or septic arthritis. Will consult ID and orthopedic surgery. No immediate antibiotic indication SIRS - leukocytosis, tachycardia, concerning for possible joint infection Unable to walk - due to right knee pain, weakness. No focal neurologic deficits. PT after ortho eval HLD - statin HTN - home meds Chronic osteoarthritis Hypothyroidism - cont home meds Obesity - counseled on weight loss Anemia - will check iron studies Severe protein calorie malnutrition - likely from arthritis FEN - Regular diet PPX - heparin FULL CODE DIspo - inpatient. 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 Her symptoms have been progressive over the last week and she actually was seen outpatient for some medial swelling that comes and goes. She lives alone, and notes for the last 48 hours prior to coming to ED she has been unable to bear weight on the right lower extremity. She feels that about to give out and does have pain that over a week ago was inferior to patella but now is superior to her patella and medially and notices more swelling and warmth superior medially in the knee. When she rests lays down and sits down the pain resolves but the pain is unbearable she sees stars it is 10 out of 10 when she attempts to bear weight. No falls or other trauma. Historically she notes total knee replacement electively in 2006 at [facility]. She was treated with transfemoral nail for a femur fracture with Dr. Fuchs in 2016 and had a spontaneous periprosthetic fracture after that and has previously had some serous drainage from her knee over 5 years ago and has dealt with some intermittent chronic pain for which she takes oral Dilaudid outpatient. She notes her primary care physician has noted elevated inflammatory markers for quite some time. WBC 12.8, Hb 10, platelets of 97, sed rate 49, CRP 55.2, NA 134, K4.5, BUN 27, CR 1.2, glucose 118, albumin 2.6, calcium 8.8, bilirubin 0.3, AST 15, ALT 15, alkaline phosphatase 99. Right knee radiograph with intact right knee arthroplasty and intact femoral intramedullary nail, knee joint effusion. Right lower extremity venous Doppler negative for DVT 09/24: CT of right lower extremity reviewed concerning for chronic distal femur fracture possible inflammation related to infection or other. Large effusion noted tracking up to the hardware in the femur. Discussed with I ED and IR joint aspiration with cell count culture and AFB would be appropriate as patient has elected to not even consider the possibility of surgery. Still with severe pain with even attempting to bear weight that starts in the suprapatellar area of her knee radiating up into her right hip. Vitals/I&O Vitals/I&O: Vital Signs Date Time Temp Pulse Resp B/P (MAP) Pulse Ox O2 Delivery O2 Flow Rate FiO2 09/24/21 11:22 18 Room Air 09/24/21 11:00 98.5 99 122/67 (85) 94 98.5 I & O 09/23/21 09/23/21 09/24/21 15:00 23:00 07:00 Output Total 750 ml 700 ml Balance -750 ml -700 ml Physical Exam General: Alert, Oriented X3, Cooperative, mild distress Lungs: Clear Abdomen: Normal bowel sounds, Soft, No tenderness, No hepatosplenomegaly, No masses Extremities: No clubbing, No cyanosis, No edema, Normal pulses, Other (Right knee with patellar scarring superior medial partially reducible effusion is warm tender.) Skin: Other (Right knee medially warm) Labs Labs: Laboratory Tests Test 09/24/21 06:50 White Blood Count 11.3 x10^3/uL (4.0-11.0) Red Blood Count 3.83 x10^6/uL (3.50-5.40) Hemoglobin 8.5 g/dL (12.0-15.5) Hematocrit 27.2 % (36.0-47.0) Mean Corpuscular Volume 71 fL (79-100) Mean Corpuscular Hemoglobin 22 pg (25-35) Mean Corpuscular Hemoglobin Concent 31 g/dL (31-37) Red Cell Distribution Width 17.1 % (11.5-14.5) Platelet Count 585 x10^3/uL (140-400) Neutrophils (%) (Auto) 55 % (31-73) Lymphocytes (%) (Auto) 26 % (24-48) Monocytes (%) (Auto) 14 % (0-9) Eosinophils (%) (Auto) 5 % (0-3) Basophils (%) (Auto) 1 % (0-3) Neutrophils # (Auto) 6.2 x10^3/uL (1.8-7.7) Lymphocytes # (Auto) 2.9 x10^3/uL (1.0-4.8) Monocytes # (Auto) 1.5 x10^3/uL (0.0-1.1) Eosinophils # (Auto) 0.5 x10^3/uL (0.0-0.7) Basophils # (Auto) 0.1 x10^3/uL (0.0-0.2) Sodium Level 138 mmol/L (136-145) Potassium Level 4.8 mmol/L (3.5-5.1) Chloride Level 102 mmol/L (98-107) Carbon Dioxide Level 29 mmol/L (21-32) Anion Gap 7 (6-14) Blood Urea Nitrogen 22 mg/dL (7-20) Creatinine 1.2 mg/dL (0.6-1.0) Estimated GFR (Cockcroft-Gault) 42.8 BUN/Creatinine Ratio 18 (6-20) Glucose Level 84 mg/dL (70-99) Calcium Level 8.3 mg/dL (8.5-10.1) Total Bilirubin 0.3 mg/dL (0.2-1.0) Aspartate Amino Transf (AST/SGOT) 13 U/L (15-37) Alanine Aminotransferase (ALT/SGPT) 15 U/L (14-59) Alkaline Phosphatase 84 U/L (46-116) Total Protein 7.1 g/dL (6.4-8.2) Albumin 2.4 g/dL (3.4-5.0) Albumin/Globulin Ratio 0.5 (1.0-1.7) Assessment and Plan Assessmemt and Plan Problems Medical Problems: (1) Difficulty walking Status: Acute (2) Right knee pain Status: Acute Comment Review of Relevant I have reviewed the following items jose antonio (where applicable) has been applied. Medications: Current Medications Medications (Trade) Dose Ordered Sig/Rosetta Route PRN Reason Start Time Stop Time Status Last Admin Dose Admin Docusate Sodium (Colace) 100 mg HS PO 09/23/21 21:00 09/23/21 20:53 Ondansetron HCl (Zofran Odt) 4 mg PRN Q4HRS PRN PO NAUSEA 09/23/21 15:00 09/23/21 20:52 Heparin Sodium (Porcine) (Heparin Sodium) 5,000 unit Q12HR SQ 09/23/21 21:00 09/24/21 10:46 Justifications for Admission Other Justification JEN WISEMAN MD Sep 24, 2021 14:17
[2021-09-24 14:53] VITALS: BP 153/66
[2021-09-24 19:49] VITALS: BP 121/54
[2021-09-24] MEDS: DOCUSATE SODIUM 100 MG CAPSULE. PO SCH (21:07)
--- NOTE | 2021-09-24 21:20 | CONS ---
DATE OF CONSULTATION: 09/24/2021 REQUESTING PHYSICIAN: Dr. Barrera. REASON FOR CONSULTATION: Suspected right knee infection. HISTORY OF PRESENT ILLNESS: This is an 86-year-old female who came in with severe right knee pain. The patient says few days ago she felt a knot under the medial side of the knee and it has been hurting that she cannot walk on it. The patient denies any fever, denies any nausea, vomiting, diarrhea. Denies any chills, night sweats. Denies any trauma. That knee has been surgerized multiple times including knee replacement in 2016, subsequent fracture and 2 surgeries done on that knee and has a solange in the femur, but she has not had anything done in the last almost 5 years. SOCIAL HISTORY: Negative for smoking, alcohol, drug use. ALLERGIES: LISTED ALLERGIC TO SULFA. CURRENT MEDICATIONS: The patient is not on any antibiotics. REVIEW OF SYSTEMS: As per the HPI. All other systems reviewed are negative. PHYSICAL EXAMINATION: GENERAL: Alert, oriented female, not in distress. VITAL SIGNS: Stable, afebrile. HEENT: NAD. NECK: Supple, no JVP, no lymphadenopathy. LUNGS: Clear. HEART: S1, S2, regular. ABDOMEN: Soft, nontender, no organomegaly. EXTREMITIES: Left lower extremity is unremarkable. Right lower extremity appears to have a joint fluid. The knot she is saying is there on the medial side, which is actually smaller and she admits to have improved compared to the worst knot, still she is not able to put weight on it. There is no erythema, induration. There is no open wound or drainage. NEUROLOGIC: Alert, awake, and appropriate. No focal neurologic deficit. LABORATORY DATA: White count is 11.3, platelets are 585,000. ESR is 49. BUN and creatinine is 22 and 1.2. Urinalysis unremarkable. 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 There is a fracture of the interlocking screws and fracture fragments of the bony lysis surrounding the intramedullary nail suspicious for loosening of the hardware, also large joint effusion the upper aspect of which extends and continues to the chronic nonunion distal femoral shaft fracture and asymmetric protrusion of the joint effusion into the medial knee soft tissue. X-ray also reviewed. ASSESSMENT: Right knee pain and swelling. This could be a hematoma. This could be infected knee and now worsening. Orthopedics has seen her and not planning anything. We can do at least knee aspiration and directed therapy if there is infection initially with IV antibiotics and then chronic suppressive oral forever. The patient wants something done. The patient cannot live like this and not do anything, so we will ask Radiology and he can put a needle and obtain the fluid. That is what we will do right now and await further fluid analysis. No antibiotics at this stage. Supportive care and long discussion done with the patient. Also discussed with Dr. Barrera. Thank you very much, Dr. Barrera, for giving me opportunity to participate in this patient's care. LOUIE/AYUSH ALEMAN: LOUIE/karne TID: [id number] MICKI
[2021-09-24 23:17] VITALS: BP 130/62
[2021-09-25] VITALS (7 sets, daily range): BP systolic 112–158; BP diastolic 56–73
[2021-09-25] MEDS: ONDANSETRON ODT 4 MG TAB.RAPDIS. PO PRN (03:09)
[2021-09-25] MEDS: LEVOTHYROXINE 88 MCG TABLET PO SCH (06:06)
[2021-09-25] MEDS: FERROUS SULFATE 325 MG TABLET. PO SCH (08:00)
[2021-09-25] MEDS: ACETAMINOPHEN 325 MG TABLET. PO PRN ×2 (10:42→20:03)
[2021-09-25] MEDS: MULTIVITAMIN with MINERAL TABLET. PO SCH (10:42)
[2021-09-25] MEDS: LACTOBACILLUS RHAMNOSUS GG 1 CAPSULE. PO SCH (10:42)
[2021-09-25] MEDS: HYDROmorphone 2 MG TABLET PO PRN ×2 (10:43→20:04)
[2021-09-25] MEDS: CHOLECALCIFEROL (VITAMIN D3) 5,000 UNIT CAPSULE PO SCH (10:43)
[2021-09-25] MEDS: NAPROXEN 500 MG TABLET PO SCH ×2 (10:43→21:08)
[2021-09-25] MEDS: HEPARIN for SUB-Q USE 5,000 UNIT/ML VIAL. SQ SCH ×2 (10:57→21:12)
--- NOTE | 2021-09-25 11:06 | PDOC ---
[employer] [facility] PROGRESS NOTE Date of Service DOS: DATE: 09/25/21 TIME: 11:04 Chief Complaint Chief Complaint Right knee pain - some concern for inflammatory arthritis. Notes prior RF of 16 outpatient and negative ARIELLE. Will check CCP, Uric acid and consult orthopedic surgery to consider possible alternative such as septic arthritis Right knee effusion - previously serous fluid analysis per patient report. The warmth and pain are concern for inflammatory arthritis or septic arthritis. Will consult ID and orthopedic surgery. No immediate antibiotic indication SIRS - leukocytosis, tachycardia, concerning for possible joint infection Unable to walk - due to right knee pain, weakness. No focal neurologic deficits. PT after ortho eval HLD - statin HTN - home meds Chronic osteoarthritis Hypothyroidism - cont home meds Obesity - counseled on weight loss Anemia - will check iron studies Severe protein calorie malnutrition - likely from arthritis FEN - Regular diet PPX - heparin FULL CODE DIspo - inpatient. 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 Her symptoms have been progressive over the last week and she actually was seen outpatient for some medial swelling that comes and goes. She lives alone, and notes for the last 48 hours prior to coming to ED she has been unable to bear weight on the right lower extremity. She feels that about to give out and does have pain that over a week ago was inferior to patella but now is superior to her patella and medially and notices more swelling and warmth superior medially in the knee. When she rests lays down and sits down the pain resolves but the pain is unbearable she sees stars it is 10 out of 10 when she attempts to bear weight. No falls or other trauma. Historically she notes total knee replacement electively in 2006 at [facility]. She was treated with transfemoral nail for a femur fracture with Dr. Fuchs in 2016 and had a spontaneous periprosthetic fracture after that and has previously had some serous drainage from her knee over 5 years ago and has dealt with some intermittent chronic pain for which she takes oral Dilaudid outpatient. She notes her primary care physician has noted elevated inflammatory markers for quite some time. WBC 12.8, Hb 10, platelets of 97, sed rate 49, CRP 55.2, NA 134, K4.5, BUN 27, CR 1.2, glucose 118, albumin 2.6, calcium 8.8, bilirubin 0.3, AST 15, ALT 15, alkaline phosphatase 99. Right knee radiograph with intact right knee arthroplasty and intact femoral intramedullary nail, knee joint effusion. Right lower extremity venous Doppler negative for DVT 09/24: CT of right lower extremity reviewed concerning for chronic distal femur fracture possible inflammation related to infection or other. Large effusion noted tracking up to the hardware in the femur. Discussed with I ED and IR joint aspiration with cell count culture and AFB would be appropriate as patient has elected to not even consider the possibility of surgery. Still with severe pain with even attempting to bear weight that starts in the suprapatellar area of her knee radiating up into her right hip. 09/25: Status post joint fluid aspiration lab results pending from this. She still having significant pain with ambulation. She had a good conversation with orthopedic surgery regarding potential surgical options. Vitals/I&O Vitals/I&O: Vital Signs Date Time Temp Pulse Resp B/P (MAP) Pulse Ox O2 Delivery O2 Flow Rate FiO2 09/25/21 10:44 89 112/56 09/25/21 10:43 18 Room Air 09/25/21 07:19 98.7 93 98.7 I & O 09/24/21 09/24/21 09/25/21 15:00 23:00 07:00 Intake Total 250 ml 250 ml 100 ml Balance 250 ml 250 ml 100 ml Physical Exam General: Alert, Oriented X3, Cooperative, mild distress Lungs: Clear Abdomen: Normal bowel sounds, Soft, No tenderness, No hepatosplenomegaly, No masses Extremities: No clubbing, No cyanosis, No edema, Normal pulses, Other (Right knee with patellar scarring superior medial partially reducible effusion is warm tender.) Skin: Other (Right knee medially warm) Assessment and Plan Assessmemt and Plan Problems Medical Problems: (1) Difficulty walking Status: Acute (2) Right knee pain Status: Acute Comment Review of Relevant I have reviewed the following items jose antonio (where applicable) has been applied. Justifications for Admission Other Justification JEN WISEMAN MD Sep 25, 2021 11:06
[2021-09-25 14:22] LABS: BF CLARITY TURBID; BF COLOR AMBER; BF MON % 4 %; BF PMN % 96 %; BF RBC COUNT 6000 /cmm (Not Established); BF SOURCE SYNOVIAL; BF WBC COUNT 76800 /cmm (Not Established)
--- NOTE | 2021-09-25 15:54 | PDOC ---
Infectious Disease Note Subjective: Subjective Patient complains of pain in the right knee. Otherwise no complaints Denies fever, nausea, vomiting, shortness of breath, diarrhea, abdominal pain, rash Otherwise as above Vital Signs: Vital Signs Vital Signs Date Time Temp Pulse Resp B/P (MAP) Pulse Ox O2 Delivery O2 Flow Rate FiO2 09/25/21 11:13 19 Room Air 09/25/21 11:00 98.5 89 125/62 (83) 93 98.5 Physical Exam: PHYSICAL EXAM GENERAL: Alert, oriented female, not in distress. HEENT: anicteric, no thrush NECK: Supple, no JVP, LUNGS: Clear. HEART: S1, S2, regular. ABDOMEN: Soft, nontender, no organomegaly. EXTREMITIES: Left lower extremity is unremarkable. Right lower extremity appears to have a joint fluid. The knot she is saying is there on the medial side, which is actually smaller and she admits to have improved compared to the worst knot, still she is not able to put weight on it. There is no erythema, induration. There is no open wound or drainage. NEUROLOGIC: Alert, awake, and appropriate. No focal neurologic deficit. Medications: Inpatient Meds: Medications reviewed. Objective: Assessment: Right knee pain and swelling. S/P Aspirate WBC 83257, Hypothyroidism Debility Plan: Plan of Care Since synovial aspirate is done we will start patient on empiric daptomycin Monitor labs and cultures Pain control per primary Continue supportive care Discussed with DONNA RANKIN MD Sep 25, 2021 15:54
[2021-09-25] MEDS: DAPTOmycin (GENERIC) IVPB 380 MG in IV NORMAL SALINE 50ML 50 ML IV SCH (20:03)
[2021-09-25] MEDS: DOCUSATE SODIUM 100 MG CAPSULE. PO SCH (21:00)
[2021-09-26 03:08] VITALS: BP 130/72
[2021-09-26] MEDS: LEVOTHYROXINE 88 MCG TABLET PO SCH (06:15)
[2021-09-26 06:48] VITALS: BP 132/61
[2021-09-26] MEDS: FERROUS SULFATE 325 MG TABLET. PO SCH (08:00)
[2021-09-26 08:46] LABS: CALCIUM 8.6 mg/dL (8.5-10.1); CREATININE 1.1 mg/dL (0.6-1.0); GFR 47.3; POTASSIUM 4.4 mmol/L (3.5-5.1)
[2021-09-26 08:51] LABS: BASO # 0.1 x10^3/uL (0.0-0.2); BASO % 1 % (0-3); EOS # 0.5 x10^3/uL (0.0-0.7); EOS % 4 % (0-3); HEMATOCRIT 28.2 % (36.0-47.0); HEMOGLOBIN 8.7 g/dL (12.0-15.5); LYMPH % 16 % (24-48); MEAN CORPUSCULAR HEMOGLOBIN 22 pg (25-35); MEAN CORPUSCULAR HGB CONC 31 g/dL (31-37); MEAN CORPUSCULAR VOLUME 72 fL (79-100); MONO # 1.2 x10^3/uL (0.0-1.1); MONO % 10 % (0-9); NEUT # 8.4 x10^3/uL (1.8-7.7); NEUT % 69 % (31-73); PLATELET COUNT 568 x10^3/uL (140-400); RED BLOOD COUNT 3.91 x10^6/uL (3.50-5.40); RED CELL DISTRIBUTION WIDTH 17.1 % (11.5-14.5); WHITE BLOOD COUNT 12.2 x10^3/uL (4.0-11.0)
[2021-09-26] MEDS: NAPROXEN 500 MG TABLET PO SCH ×2 (09:42→19:54)
[2021-09-26] MEDS: MULTIVITAMIN with MINERAL TABLET. PO SCH (09:42)
[2021-09-26] MEDS: ACETAMINOPHEN 325 MG TABLET. PO PRN ×3 (09:43→23:58)
[2021-09-26] MEDS: LACTOBACILLUS RHAMNOSUS GG 1 CAPSULE. PO SCH (09:43)
[2021-09-26] MEDS: CHOLECALCIFEROL (VITAMIN D3) 5,000 UNIT CAPSULE PO SCH (09:43)
[2021-09-26] MEDS: HYDROmorphone 2 MG TABLET PO PRN ×3 (09:44→23:58)
[2021-09-26] MEDS: HEPARIN for SUB-Q USE 5,000 UNIT/ML VIAL. SQ SCH ×2 (09:50→19:59)
[2021-09-26 11:00] VITALS: BP 108/49
--- NOTE | 2021-09-26 12:30 | PDOC ---
Infectious Disease Note Subjective: Subjective Patient complains of pain in the right knee. Denies fever, nausea, vomiting, shortness of breath, diarrhea, abdominal pain, rash Otherwise as above Vital Signs: Vital Signs Vital Signs Date Time Temp Pulse Resp B/P (MAP) Pulse Ox O2 Delivery O2 Flow Rate FiO2 09/26/21 11:00 99.1 96 18 108/49 (68) 91 Room Air 99.1 Physical Exam: PHYSICAL EXAM GENERAL: Alert, oriented female, not in distress. HEENT: anicteric, no thrush NECK: Supple, no JVP, LUNGS: Clear. HEART: S1, S2, regular. ABDOMEN: Soft, nontender, no organomegaly. EXTREMITIES: Left lower extremity is unremarkable. Right lower extremity appears to have a joint fluid. The knot she is saying is there on the medial side, which is actually smaller and she admits to have improved compared to the worst knot, still she is not able to put weight on it. There is no erythema, induration. There is no open wound or drainage. NEUROLOGIC: Alert, awake, and appropriate. No focal neurologic deficit. Medications: Inpatient Meds: Medications reviewed. Labs: Lab Laboratory Tests Test 09/26/21 06:30 09/26/21 06:35 Sodium Level 138 mmol/L (136-145) Potassium Level 4.4 mmol/L (3.5-5.1) Chloride Level 103 mmol/L (98-107) Carbon Dioxide Level 28 mmol/L (21-32) Anion Gap 7 (6-14) Blood Urea Nitrogen 24 mg/dL (7-20) Creatinine 1.1 mg/dL (0.6-1.0) Estimated GFR (Cockcroft-Gault) 47.3 Glucose Level 88 mg/dL (70-99) Calcium Level 8.6 mg/dL (8.5-10.1) White Blood Count 12.2 x10^3/uL (4.0-11.0) Red Blood Count 3.91 x10^6/uL (3.50-5.40) Hemoglobin 8.7 g/dL (12.0-15.5) Hematocrit 28.2 % (36.0-47.0) Mean Corpuscular Volume 72 fL (79-100) Mean Corpuscular Hemoglobin 22 pg (25-35) Mean Corpuscular Hemoglobin Concent 31 g/dL (31-37) Red Cell Distribution Width 17.1 % (11.5-14.5) Platelet Count 568 x10^3/uL (140-400) Neutrophils (%) (Auto) 69 % (31-73) Lymphocytes (%) (Auto) 16 % (24-48) Monocytes (%) (Auto) 10 % (0-9) Eosinophils (%) (Auto) 4 % (0-3) Basophils (%) (Auto) 1 % (0-3) Neutrophils # (Auto) 8.4 x10^3/uL (1.8-7.7) Lymphocytes # (Auto) 2.0 x10^3/uL (1.0-4.8) Monocytes # (Auto) 1.2 x10^3/uL (0.0-1.1) Eosinophils # (Auto) 0.5 x10^3/uL (0.0-0.7) Basophils # (Auto) 0.1 x10^3/uL (0.0-0.2) Creatine Kinase 25 U/L (26-192) Objective: Assessment: Right knee pain and swelling. S/P Aspirate WBC 98023,Cult pending RT TKA Hypothyroidism Debility Plan: Plan of Care Cont daptomycin Add ceftriaxone f/u synovial aspirate cultures Monitor labs and cultures Pain control per primary Continue supportive care DONNA RUSHING MD September 26, 2021 12:30
--- NOTE | 2021-09-26 12:32 | PDOC ---
PROGRESS NOTES Date of Service DATE: 09/26/21 TIME: 12:26 Subjective Subjective Gram stain on R knee aspirate came back as few gram + cocci. Feels well. Very inquisitive about care. Very impressed with ID. 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) Labs Laboratory Tests Test 09/24/21 13:33 09/26/21 06:30 09/26/21 06:35 Body Fluid Source Synovial Body Fluid Color Kimberly Body Fluid Clarity Turbid Body Fluid Nucleated Cells 17263 /cmm (Not Body Fluid Mononuclear WBCs (%) 4 % Body Fluid Polymorphonuclear Cells 96 % Body Fluid Total RBCs Counted 6000 /cmm (Not Established) Sodium Level 138 mmol/L (136-145) Potassium Level 4.4 mmol/L (3.5-5.1) Chloride Level 103 mmol/L (98-107) Carbon Dioxide Level 28 mmol/L (21-32) Anion Gap 7 (6-14) Blood Urea Nitrogen 24 mg/dL (7-20) Creatinine 1.1 mg/dL (0.6-1.0) Estimated GFR (Cockcroft-Gault) 47.3 Glucose Level 88 mg/dL (70-99) Calcium Level 8.6 mg/dL (8.5-10.1) White Blood Count 12.2 x10^3/uL (4.0-11.0) Red Blood Count 3.91 x10^6/uL (3.50-5.40) Hemoglobin 8.7 g/dL (12.0-15.5) Hematocrit 28.2 % (36.0-47.0) Mean Corpuscular Volume 72 fL (79-100) Mean Corpuscular Hemoglobin 22 pg (25-35) Mean Corpuscular Hemoglobin Concent 31 g/dL (31-37) Red Cell Distribution Width 17.1 % (11.5-14.5) Platelet Count 568 x10^3/uL (140-400) Neutrophils (%) (Auto) 69 % (31-73) Lymphocytes (%) (Auto) 16 % (24-48) Monocytes (%) (Auto) 10 % (0-9) Eosinophils (%) (Auto) 4 % (0-3) Basophils (%) (Auto) 1 % (0-3) Neutrophils # (Auto) 8.4 x10^3/uL (1.8-7.7) Lymphocytes # (Auto) 2.0 x10^3/uL (1.0-4.8) Monocytes # (Auto) 1.2 x10^3/uL (0.0-1.1) Eosinophils # (Auto) 0.5 x10^3/uL (0.0-0.7) Basophils # (Auto) 0.1 x10^3/uL (0.0-0.2) Creatine Kinase 25 U/L (26-192) Laboratory Tests Test 09/26/21 06:30 09/26/21 06:35 Sodium Level 138 mmol/L (136-145) Potassium Level 4.4 mmol/L (3.5-5.1) Chloride Level 103 mmol/L (98-107) Carbon Dioxide Level 28 mmol/L (21-32) Anion Gap 7 (6-14) Blood Urea Nitrogen 24 mg/dL (7-20) Creatinine 1.1 mg/dL (0.6-1.0) Estimated GFR (Cockcroft-Gault) 47.3 Glucose Level 88 mg/dL (70-99) Calcium Level 8.6 mg/dL (8.5-10.1) White Blood Count 12.2 x10^3/uL (4.0-11.0) Red Blood Count 3.91 x10^6/uL (3.50-5.40) Hemoglobin 8.7 g/dL (12.0-15.5) Hematocrit 28.2 % (36.0-47.0) Mean Corpuscular Volume 72 fL (79-100) Mean Corpuscular Hemoglobin 22 pg (25-35) Mean Corpuscular Hemoglobin Concent 31 g/dL (31-37) Red Cell Distribution Width 17.1 % (11.5-14.5) Platelet Count 568 x10^3/uL (140-400) Neutrophils (%) (Auto) 69 % (31-73) Lymphocytes (%) (Auto) 16 % (24-48) Monocytes (%) (Auto) 10 % (0-9) Eosinophils (%) (Auto) 4 % (0-3) Basophils (%) (Auto) 1 % (0-3) Neutrophils # (Auto) 8.4 x10^3/uL (1.8-7.7) Lymphocytes # (Auto) 2.0 x10^3/uL (1.0-4.8) Monocytes # (Auto) 1.2 x10^3/uL (0.0-1.1) Eosinophils # (Auto) 0.5 x10^3/uL (0.0-0.7) Basophils # (Auto) 0.1 x10^3/uL (0.0-0.2) Creatine Kinase 25 U/L (26-192) Assessment Assessment 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 We spent 20 minutes today discussed both. If she chooses lifelong antibiotics, it may not work. She'll need to talk to ID about the feasibility of that which may not be viable. I gave her my total joint partner's name and also suggested [facility] or Dr. Dominguez and Dr. Claudio at [facility]. She has a very complex problem that needs the attention of a fellowship trained total joint specialist. She is going to discuss these options with her sister and consider them all prior to making a decision. Please call [phone]t with Dr. Cerda, total joint trained partner at [facility]. I'll review her case with him as well. Justicifation of Admission Dx: Justifications for Admission: Justification of Admission Dx: Yes Cellulitis: Cellulitis TSERING DING MD September 26, 2021 12:32
[2021-09-26 15:00] VITALS: BP 152/91
[2021-09-26] MEDS ORDERED: cefTRIAXone IV Push 2 GM VIAL. IVP SCH (15:00)
--- NOTE | 2021-09-26 15:29 | PDOC ---
[facility] PROGRESS NOTE Date of Service DOS: DATE: 09/26/21 TIME: 14:44 Chief Complaint Chief Complaint Right knee pain - some concern for inflammatory arthritis. Notes prior RF of 16 outpatient and negative ARIELLE. Will check CCP, Uric acid and consult orthopedic surgery to consider possible alternative such as septic arthritis Right knee effusion - previously serous fluid analysis per patient report. The warmth and pain are concern for inflammatory arthritis or septic arthritis. Will consult ID and orthopedic surgery. No immediate antibiotic indication SIRS - leukocytosis, tachycardia, concerning for possible joint infection Unable to walk - due to right knee pain, weakness. No focal neurologic deficits. PT after ortho eval HLD - statin HTN - home meds Chronic osteoarthritis Hypothyroidism - cont home meds Obesity - counseled on weight loss Anemia - will check iron studies Severe protein calorie malnutrition - likely from arthritis FEN - Regular diet PPX - heparin FULL CODE DIspo - inpatient. 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 Her symptoms have been progressive over the last week and she actually was seen outpatient for some medial swelling that comes and goes. She lives alone, and notes for the last 48 hours prior to coming to ED she has been unable to bear weight on the right lower extremity. She feels that about to give out and does have pain that over a week ago was inferior to patella but now is superior to her patella and medially and notices more swelling and warmth superior medially in the knee. When she rests lays down and sits down the pain resolves but the pain is unbearable she sees stars it is 10 out of 10 when she attempts to bear weight. No falls or other trauma. Historically she notes total knee replacement electively in 2006 at [facility]. She was treated with transfemoral nail for a femur fracture with Dr. Fuchs in 2016 and had a spontaneous periprosthetic fracture after that and has previously had some serous drainage from her knee over 5 years ago and has dealt with some intermittent chronic pain for which she takes oral Dilaudid outpatient. She notes her primary care physician has noted elevated inflammatory markers for quite some time. WBC 12.8, Hb 10, platelets of 97, sed rate 49, CRP 55.2, NA 134, K4.5, BUN 27, CR 1.2, glucose 118, albumin 2.6, calcium 8.8, bilirubin 0.3, AST 15, ALT 15, alkaline phosphatase 99. Right knee radiograph with intact right knee arthroplasty and intact femoral intramedullary nail, knee joint effusion. Right lower extremity venous Doppler negative for DVT 09/24: CT of right lower extremity reviewed concerning for chronic distal femur fracture possible inflammation related to infection or other. Large effusion noted tracking up to the hardware in the femur. Discussed with I ED and IR joint aspiration with cell count culture and AFB would be appropriate as patient has elected to not even consider the possibility of surgery. Still with severe pain with even attempting to bear weight that starts in the suprapatellar area of her knee radiating up into her right hip. 09/25: Status post joint fluid aspiration lab results pending from this. She still having significant pain with ambulation. She had a good conversation with orthopedic surgery regarding potential surgical options. 09/26: Right knee joint fluid with over 70,000 PMNs and gram-positive cocci Gram stain. Started on Rocephin and daptomycin empirically by infectious diseases. She is going to meet with orthopedic surgery discuss further surgical options but her overall goal is to become ambulatory cannot go back home currently she is not ambulating well enough to do so and there is a plan to have cultures come back and guide antibiotic therapy currently will need IV antibiotics long-term with infectious disease. Vitals/I&O Vitals/I&O: Vital Signs Date Time Temp Pulse Resp B/P (MAP) Pulse Ox O2 Delivery O2 Flow Rate FiO2 09/26/21 11:00 99.1 96 18 108/49 (68) 91 Room Air 99.1 I & O 09/25/21 09/25/21 09/26/21 15:00 23:00 07:00 Intake Total 440 ml 1020 ml Balance 440 ml 1020 ml Physical Exam Physical Exam: GENERAL: Alert, oriented female, not in distress. HEENT: anicteric, no thrush NECK: Supple, no JVP, LUNGS: Clear. HEART: S1, S2, regular. ABDOMEN: Soft, nontender, no organomegaly. EXTREMITIES: Left lower extremity is unremarkable. Right lower extremity appears to have a joint fluid. The knot she is saying is there on the medial side, which is actually smaller and she admits to have improved compared to the worst knot, still she is not able to put weight on it. There is no erythema, induration. There is no open wound or drainage. NEUROLOGIC: Alert, awake, and appropriate. No focal neurologic deficit. General: Alert, Oriented X3, Cooperative, mild distress Lungs: Clear Abdomen: Normal bowel sounds, Soft, No tenderness, No hepatosplenomegaly, No masses Extremities: No clubbing, No cyanosis, No edema, Normal pulses, Other (Right knee with patellar scarring superior medial partially reducible effusion is warm tender.) Skin: Other (Right knee medially warm) Labs Labs: Laboratory Tests Test 09/26/21 06:30 09/26/21 06:35 Sodium Level 138 mmol/L (136-145) Potassium Level 4.4 mmol/L (3.5-5.1) Chloride Level 103 mmol/L (98-107) Carbon Dioxide Level 28 mmol/L (21-32) Anion Gap 7 (6-14) Blood Urea Nitrogen 24 mg/dL (7-20) Creatinine 1.1 mg/dL (0.6-1.0) Estimated GFR (Cockcroft-Gault) 47.3 Glucose Level 88 mg/dL (70-99) Calcium Level 8.6 mg/dL (8.5-10.1) White Blood Count 12.2 x10^3/uL (4.0-11.0) Red Blood Count 3.91 x10^6/uL (3.50-5.40) Hemoglobin 8.7 g/dL (12.0-15.5) Hematocrit 28.2 % (36.0-47.0) Mean Corpuscular Volume 72 fL (79-100) Mean Corpuscular Hemoglobin 22 pg (25-35) Mean Corpuscular Hemoglobin Concent 31 g/dL (31-37) Red Cell Distribution Width 17.1 % (11.5-14.5) Platelet Count 568 x10^3/uL (140-400) Neutrophils (%) (Auto) 69 % (31-73) Lymphocytes (%) (Auto) 16 % (24-48) Monocytes (%) (Auto) 10 % (0-9) Eosinophils (%) (Auto) 4 % (0-3) Basophils (%) (Auto) 1 % (0-3) Neutrophils # (Auto) 8.4 x10^3/uL (1.8-7.7) Lymphocytes # (Auto) 2.0 x10^3/uL (1.0-4.8) Monocytes # (Auto) 1.2 x10^3/uL (0.0-1.1) Eosinophils # (Auto) 0.5 x10^3/uL (0.0-0.7) Basophils # (Auto) 0.1 x10^3/uL (0.0-0.2) Creatine Kinase 25 U/L (26-192) Assessment and Plan Assessmemt and Plan Problems Medical Problems: (1) Difficulty walking Status: Acute (2) Right knee pain Status: Acute Comment Review of Relevant I have reviewed the following items jose antonio (where applicable) has been applied. Medications: Current Medications Medications (Trade) Dose Ordered Sig/Rosetta Route PRN Reason Start Time Stop Time Status Last Admin Dose Admin Daptomycin 380 mg/ Sodium Chloride 50 ml @ 100 mls/hr Q24H IV 09/25/21 20:00 09/25/21 20:03 Justifications for Admission Other Justification JEN WISEMAN MD September 26, 2021 15:29
[2021-09-26] MEDS: ONDANSETRON ODT 4 MG TAB.RAPDIS. PO PRN ×2 (16:14→19:55)
--- NOTE | 2021-09-26 16:51 | NUR ---
Immediately after administering 1500 Rocephin, patient became nauseated, c/o of frontal headache and teeth and gum pain, also crying stating "I feel so sick, I don't feel good, please don't leave me", this RN administered zofran and sat with patient. Soon after patient began to feel normal again and resumed normal conversation. Dr. Rodriguez notified of possible adverse reaction, he will address tomorrow, patient states she has taken rocephin before with no problems. Patient talking to family on phone at this time drinking a sprite, will continue to monitor.
[2021-09-26 19:24] VITALS: BP 128/58
[2021-09-26] MEDS: DAPTOmycin (GENERIC) IVPB 380 MG in IV NORMAL SALINE 50ML 50 ML IV SCH (19:53)
[2021-09-26] MEDS: DOCUSATE SODIUM 100 MG CAPSULE. PO SCH (19:55)
[2021-09-26 23:09] VITALS: BP 148/55
[2021-09-27 03:03] VITALS: BP 136/62
[2021-09-27] MEDS: LEVOTHYROXINE 88 MCG TABLET PO SCH (05:15)
[2021-09-27] MEDS: ACETAMINOPHEN 325 MG TABLET. PO PRN ×3 (05:15→19:52)
[2021-09-27] MEDS: HYDROmorphone 2 MG TABLET PO PRN ×3 (05:15→19:52)
[2021-09-27 07:00] VITALS: BP 149/65
[2021-09-27] MEDS: FERROUS SULFATE 325 MG TABLET. PO SCH (08:00)
[2021-09-27] MEDS: MULTIVITAMIN with MINERAL TABLET. PO SCH (09:11)
[2021-09-27] MEDS: LACTOBACILLUS RHAMNOSUS GG 1 CAPSULE. PO SCH (09:11)
[2021-09-27] MEDS: NAPROXEN 500 MG TABLET PO SCH ×2 (09:11→19:51)
[2021-09-27] MEDS: CHOLECALCIFEROL (VITAMIN D3) 5,000 UNIT CAPSULE PO SCH (09:13)
[2021-09-27] MEDS: HEPARIN for SUB-Q USE 5,000 UNIT/ML VIAL. SQ SCH ×2 (09:16→19:53)
[2021-09-27 11:00] VITALS: BP 105/48
--- NOTE | 2021-09-27 11:23 | PDOC ---
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 Her symptoms have been progressive over the last week and she actually was seen outpatient for some medial swelling that comes and goes. She lives alone, and notes for the last 48 hours prior to coming to ED she has been unable to bear weight on the right lower extremity. She feels that about to give out and does have pain that over a week ago was inferior to patella but now is superior to her patella and medially and notices more swelling and warmth superior med ially in the knee. When she rests lays down and sits down the pain resolves but the pain is unbearable she sees stars it is 10 out of 10 when she attempts to bear weight. No falls or other trauma. Historically she notes total knee replacement electively in 2006 at [facility]. She was treated with transfemoral nail for a femur fracture with Dr. Fuchs in 2016 and had a spontaneous periprosthetic fracture after that and has previously had some serous drainage from her knee over 5 years ago and has dealt with some intermittent chronic pain for which she takes oral Dilaudid outpatient. She notes her primary care physician has noted elevated inflammatory markers for quite some time. WBC 12.8, Hb 10, platelets of 97, sed rate 49, CRP 55.2, NA 134, K4.5, BUN 27, CR 1.2, glucose 118, albumin 2.6, calcium 8.8, bilirubin 0.3, AST 15, ALT 15, alkaline phosphatase 99. Right knee radiograph with intact right knee arthroplasty and intact femoral intramedullary nail, knee joint effusion. Right lower extremity venous Doppler negative for DVT 09/24: CT of right lower extremity reviewed concerning for chronic distal femur fracture possible inflammation related to infection or other. Large effusion noted tracking up to the hardware in the femur. Discussed with I ED and IR joint aspiration with cell count culture and AFB would be appropriate as patient has elected to not even consider the possibility of surgery. Still with severe pain with even attempting to bear weight that starts in the suprapatellar area of her knee radiating up into her right hip. 09/25: Status post joint fluid aspiration lab results pending from this. She still having significant pain with ambulation. She had a good conversation with orthopedic surgery regarding potential surgical options. 09/26: Right knee joint fluid with over 70,000 PMNs and gram-positive cocci Gram stain. Started on Rocephin and daptomycin empirically by infectious diseases. She is going to meet with orthopedic surgery discuss further surgical options but her overall goal is to become ambulatory cannot go back home currently she is not ambulating well enough to do so and there is a plan to have cultures come back and guide antibiotic therapy currently will need IV antibiotics long-term with infectious disease. Vitals/I&O Vitals/I&O: Vital Signs Date Time Temp Pulse Resp B/P (MAP) Pulse Ox O2 Delivery O2 Flow Rate FiO2 09/27/21 09:13 82 149/65 09/27/21 07:00 98.4 18 93 Room Air 98.4 I & O 09/26/21 09/26/21 09/27/21 15:00 23:00 07:00 Intake Total 600 ml 890 ml 360 ml Balance 600 ml 890 ml 360 ml Physical Exam Physical Exam: GENERAL: Alert, oriented female, not in distress. HEENT: anicteric, no thrush NECK: Supple, no JVP, LUNGS: Clear. HEART: S1, S2, regular. ABDOMEN: Soft, nontender, no organomegaly. EXTREMITIES: Left lower extremity is unremarkable. Right lower extremity appears to have a joint fluid. The knot she is saying is there on the medial side, which is actually smaller and she admits to have improved compared to the worst knot, still she is not able to put weight on it. There is no erythema, induration. There is no open wound or drainage. NEUROLOGIC: Alert, awake, and appropriate. No focal neurologic deficit. General: Alert, Oriented X3, Cooperative, mild distress Lungs: Clear Abdomen: Normal bowel sounds, Soft, No tenderness, No hepatosplenomegaly, No m asses Extremities: No clubbing, No cyanosis, No edema, Normal pulses, Other (Right knee with patellar scarring superior medial partially reducible effusion is warm tender.) Skin: Other (Right knee medially warm) Assessment and Plan Assessmemt and Plan Problems Medical Problems: (1) Difficulty walking Status: Acute (2) Right knee pain Status: Acute Right knee pain - some concern for inflammatory arthritis. Notes prior RF of 16 outpatient and negative ARIELLE. Will check CCP, Uric acid and consult orthopedic surgery to consider possible alternative such as septic arthritis Right knee effusion - previously serous fluid analysis per patient report. The warmth and pain are concern for inflammatory arthritis or septic arthritis. Will consult ID and orthopedic surgery. No immediate antibiotic indication SIRS - leukocytosis, tachycardia, concerning for possible joint infection Unable to walk - due to right knee pain, weakness. No focal neurologic deficits. PT after ortho eval HLD - statin HTN - home meds Chronic osteoarthritis Hypothyroidism - cont home meds Obesity - counseled on weight loss Anemia - will check iron studies Severe protein calorie malnutrition - likely from arthritis FEN - Regular diet PPX - heparin FULL CODE DIspo - inpatient. As of now would need inpatient rehab vs SNF upon d/c given her inability to ambulate Comment Review of Relevant I have reviewed the following items jose antonio (where applicable) has been applied. Medications: Current Medications Medications (Trade) Dose Ordered Sig/Rosetta Route PRN Reason Start Time Stop Time Status Last Admin Dose Admin Ceftriaxone Sodium (Rocephin) 2 gm Q24H IVP 09/26/21 15:00 09/26/21 15:54 Justifications for Admission Other Justification GIN SCHRADER III DO September 27, 2021 11:22
--- NOTE | 2021-09-27 12:05 | PDOC ---
Infectious Disease Note Subjective: Subjective Patient complains of pain in the right knee. Denies fever, nausea, vomiting, shortness of breath, diarrhea, abdominal pain, rash Otherwise as above Vital Signs: Vital Signs Vital Signs Date Time Temp Pulse Resp B/P (MAP) Pulse Ox O2 Delivery O2 Flow Rate FiO2 09/27/21 11:00 99.0 88 18 105/48 (67) 91 Room Air 99.0 Physical Exam: PHYSICAL EXAM GENERAL: Alert, oriented female, not in distress. HEENT: anicteric, no thrush NECK: Supple, no JVP, LUNGS: Clear. HEART: S1, S2, regular. ABDOMEN: Soft, nontender, no organomegaly. EXTREMITIES: Left lower extremity is unremarkable. Right lower extremity appears to have a joint fluid. The knot she is saying is there on the medial side, which is actually smaller and she admits to have improved compared to the worst knot, still she is not able to put weight on it. There is no erythema, induration. There is no open wound or drainage. NEUROLOGIC: Alert, awake, and appropriate. No focal neurologic deficit. Medications: Inpatient Meds: Medications reviewed. Labs: Micro Synovial aspirate staph epidermidis Objective: Assessment: RT TKA PJI S/P Aspirate WBC 81473,Cult staph epidermidis Hypothyroidism Debility Plan: Plan of Care Ortho input noted with 2 options surgical or nonsurgical. Agree that if she chooses lifelong antibiotics, IV antibiotics for 6 weeks followed by lifelong chronic suppressive p.o. Risk of failure remains as hardware will be in place She will also be at risk of recurrent infection Side effects discussed with patient including C. difficile colitis etc. Cont daptomycin Pt could not tolerate ceftriaxone, but has tolerated it well in the past about 5 years ago add felicitas to staph epidermidis, rn to call micro lab Monitor labs and cultures Pain control per primary Continue supportive care Ortho input noted with 2 options surgical versus nonsurgical Agree with Ortho that if she chooses lifelong antibiotics she still remains at risk of failure due to hardware in place Patient also was explained about the effects of antibiotics including C. difficile colitis etc. She remains at risk of secondary superinfection including MDRO infection ,sepsis etc Patient states she does not want to pursue surgery at this time after thinking about her options at this time Pros and cons discussed at length Awaiting revision specialist input D/W DONNA RANKIN MD September 27, 2021 12:05
[2021-09-27 15:00] VITALS: BP 123/53
--- NOTE | 2021-09-27 15:03 | RAD ---
Ultrasound-guided aspiration, right knee INDICATION: Large joint effusion, concerning for septic arthritis Consent: The procedure was explained in its entirety to the patient or the patients designated repres entative by a member of the treatment team, including a discussion of the risks, benefits and commonl y accepted alternatives to the procedure, as well as the expected consequences of no therapy whatsoev er. Discussion of the risks included, but was not limited to, those that are most frequent and thos e that are rare but possibly severe or life-threatening, as well as the possibility of unforeseen com plications. The right knee was prepped and draped using sterile barrier technique. Ultrasound demonstrates a larg e collection about the medial knee. 1% lidocaine was administered for local anesthesia. Under direct ultrasound guidance a 5 Malian Yueh needle was advanced into the fluid collection. Aspiration yielde d purulent material. Aspirated material was sent for Gram stain and culture. The sheath was removed. Manual pressure was held. No immediate complications. IMPRESSION: Aspiration of right knee yields purulent appearing material, some of which was sent for G lopez stain and culture Electronically signed by: Celio Buenrostro MD (09/27/2021 3:01 PM) [id number]
--- NOTE | 2021-09-27 17:35 | PDOC ---
PROGRESS NOTES Date of Service DATE: 09/27/21 TIME: 17:32 Subjective Subjective Problems overnight: Objective Vital Signs Vital Signs Date Time Temp Pulse Resp B/P (MAP) Pulse Ox O2 Delivery O2 Flow Rate FiO2 09/27/21 15:00 98.8 94 18 123/53 (76) 91 Room Air 98.8 Labs Laboratory Tests Test 09/26/21 06:30 09/26/21 06:35 Sodium Level 138 mmol/L (136-145) Potassium Level 4.4 mmol/L (3.5-5.1) Chloride Level 103 mmol/L (98-107) Carbon Dioxide Level 28 mmol/L (21-32) Anion Gap 7 (6-14) Blood Urea Nitrogen 24 mg/dL (7-20) Creatinine 1.1 mg/dL (0.6-1.0) Estimated GFR (Cockcroft-Gault) 47.3 Glucose Level 88 mg/dL (70-99) Calcium Level 8.6 mg/dL (8.5-10.1) White Blood Count 12.2 x10^3/uL (4.0-11.0) Red Blood Count 3.91 x10^6/uL (3.50-5.40) Hemoglobin 8.7 g/dL (12.0-15.5) Hematocrit 28.2 % (36.0-47.0) Mean Corpuscular Volume 72 fL (79-100) Mean Corpuscular Hemoglobin 22 pg (25-35) Mean Corpuscular Hemoglobin Concent 31 g/dL (31-37) Red Cell Distribution Width 17.1 % (11.5-14.5) Platelet Count 568 x10^3/uL (140-400) Neutrophils (%) (Auto) 69 % (31-73) Lymphocytes (%) (Auto) 16 % (24-48) Monocytes (%) (Auto) 10 % (0-9) Eosinophils (%) (Auto) 4 % (0-3) Basophils (%) (Auto) 1 % (0-3) Neutrophils # (Auto) 8.4 x10^3/uL (1.8-7.7) Lymphocytes # (Auto) 2.0 x10^3/uL (1.0-4.8) Monocytes # (Auto) 1.2 x10^3/uL (0.0-1.1) Eosinophils # (Auto) 0.5 x10^3/uL (0.0-0.7) Basophils # (Auto) 0.1 x10^3/uL (0.0-0.2) Creatine Kinase 25 U/L (26-192) Assessment Assessment POD# Plan Plan of Care Patient is seen, sitting on the commode with her sister at the bedside. Patient says that she has spoken with infectious disease and they are waiting to get some more culture results. She has been on antibiotics. She says that she had a reaction to the Rocephin which she has not had in the past. She has not really been up walking much yet. The right knee has intact skin. There is some mild swelling and erythema medially. No pain with passive range of motion of the knee. Calf is soft. We discussed in great detail the risks, benefits, alternatives and rehab of removal of the intramedullary nail in the total knee prosthesis, inserting an antibiotic spacer with 6 to 8 weeks of IV antibiotics and then revision of the nail and total knee arthroplasty versus distal femoral replacement. We also discussed suppressive antibiotics. The patient says that the rest of her body is so beat up with arthritis that she is not sure that doing a huge surgery is going to be the best idea for her. She seems to be leaning towards suppressive antibiotics but says that she really has not made her final decision yet. We discussed that that procedure could not be done at this facility and we would have to transfer her to a tertiary facility for that. She agrees that if she were ready to do surgery that she would want to do that but she is not fully ready to make that decision without the information from the infectious disease doctor. We discussed that this is not a limited time offer and she can take as much time as she would like to make a decision as to whether or not she wants surgery. We encouraged her to get a second opinion as well as her case is quite complex. She agrees with this plan. Please call orthopedics if patient decides to proceed with something surgically. Otherwise we can see her as needed. Justicifation of Admission Dx: Justifications for Admission: Justification of Admission Dx: Yes Cellulitis: Cellulitis COLT TOWNSEND September 27, 2021 17:35
[2021-09-27 19:00] VITALS: BP 111/45
[2021-09-27] MEDS: DAPTOmycin (GENERIC) IVPB 380 MG in IV NORMAL SALINE 50ML 50 ML IV SCH (19:51)
[2021-09-27] MEDS: DOCUSATE SODIUM 100 MG CAPSULE. PO SCH (19:51)
[2021-09-27] MEDS: ONDANSETRON ODT 4 MG TAB.RAPDIS. PO PRN (19:52)
[2021-09-27 23:00] VITALS: BP 122/65
[2021-09-28] MEDS: HYDROmorphone 2 MG TABLET PO PRN ×4 (00:13→21:42)
[2021-09-28] MEDS: ACETAMINOPHEN 325 MG TABLET. PO PRN ×3 (00:13→12:56)
[2021-09-28 03:00] VITALS: BP 146/74
[2021-09-28] MEDS: LEVOTHYROXINE 88 MCG TABLET PO SCH (05:11)
[2021-09-28 07:00] VITALS: BP 129/67
[2021-09-28] MEDS: MULTIVITAMIN with MINERAL TABLET. PO SCH (09:00)
[2021-09-28] MEDS: LACTOBACILLUS RHAMNOSUS GG 1 CAPSULE. PO SCH (09:00)
[2021-09-28] MEDS: FERROUS SULFATE 325 MG TABLET. PO SCH (09:00)
[2021-09-28] MEDS: NAPROXEN 500 MG TABLET PO SCH ×2 (09:00→21:40)
[2021-09-28] MEDS: CHOLECALCIFEROL (VITAMIN D3) 5,000 UNIT CAPSULE PO SCH (09:00)
[2021-09-28] MEDS: HEPARIN for SUB-Q USE 5,000 UNIT/ML VIAL. SQ SCH ×2 (09:15→21:54)
[2021-09-28 11:00] VITALS: BP 120/50
[2021-09-28] MEDS: ONDANSETRON ODT 4 MG TAB.RAPDIS. PO PRN (11:44)
--- NOTE | 2021-09-28 14:01 | PDOC ---
Infectious Disease Note Subjective: Subjective Patient complains of pain in the right knee which she thinks got aggravated with PT and OT. Had nausea is getting anxious with too much information Denies fever, vomiting, shortness of breath, diarrhea, abdominal pain, rash Otherwise as above Vital Signs: Vital Signs Vital Signs Date Time Temp Pulse Resp B/P (MAP) Pulse Ox O2 Delivery O2 Flow Rate FiO2 09/28/21 12:56 93 Room Air 09/28/21 09:01 93 129/67 09/28/21 07:00 98.8 18 98.8 Physical Exam: PHYSICAL EXAM GENERAL: Alert, oriented female, not in distress. HEENT: anicteric, no thrush NECK: Supple, no JVP, LUNGS: Clear. HEART: S1, S2, regular. ABDOMEN: Soft, nontender, no organomegaly. EXTREMITIES: Left lower extremity is unremarkable. Right lower extremity appears to have a joint fluid. The knot she is saying is there on the medial side, which is actually smaller and she admits to have improved compared to the worst knot, still she is not able to put weight on it. There is no erythema, induration. There is no open wound or drainage. NEUROLOGIC: Alert, awake, and appropriate. No focal neurologic deficit. Medications: Inpatient Meds: Medications reviewed. Labs: Lab Laboratory Tests Test 09/28/21 09:24 SARS-CoV-2 Antigen (Rapid) Negative (NEGATIVE) Micro Synovial aspirate staph epidermidis Objective: Assessment: RT TKA PJI S/P Aspirate WBC 31513,Cult staph epidermidis MRSE ( linezolid, tetra sensitive) CT RLE Large joint effusion, the upper aspect of which extends in continuity to the chronic nonunion distal femoral shaft fracture. 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 difficile colitis .Risk of future infection including secondary superinfection and with MDRO organisms, sepsis etc. discussed Antibiotics will not improve her underlying pain or mobility She states that she has too many medical problems and does not want to undergo surgery at this time She verbalizes understanding about treatment plan as above. All questions answered to her satisfaction. Cont daptomycin. Follow-up on daptomycin susceptibility Monitor weekly CK along with other labs PICC line PT and OT as tolerated D/W DONNA RANKIN MD September 28, 2021 14:01
[2021-09-28 15:00] VITALS: BP 122/50
--- NOTE | 2021-09-28 18:01 | NUR ---
transferred from and into room 414. visiting on hr phone with her relative. saline lock in her left ac--saline katherine. no complaints of pain at this time.
[2021-09-28 19:00] VITALS: BP 99/51
[2021-09-28] MEDS: DOCUSATE SODIUM 100 MG CAPSULE. PO SCH (21:41)
[2021-09-28] MEDS: DAPTOmycin (GENERIC) IVPB 380 MG in IV NORMAL SALINE 50ML 50 ML IV SCH (21:44)
[2021-09-28 23:10] VITALS: BP 134/48
[2021-09-29 03:00] VITALS: BP 107/59
[2021-09-29] MEDS: LEVOTHYROXINE 88 MCG TABLET PO SCH (06:05)
[2021-09-29] MEDS: ACETAMINOPHEN 325 MG TABLET. PO PRN ×4 (06:05→17:43)
[2021-09-29] MEDS: HYDROmorphone 2 MG TABLET PO PRN ×3 (06:07→17:43)
[2021-09-29] MEDS: ONDANSETRON ODT 4 MG TAB.RAPDIS. PO PRN ×3 (06:10→20:59)
[2021-09-29 07:00] VITALS: BP 119/60
[2021-09-29] MEDS: FERROUS SULFATE 325 MG TABLET. PO SCH (08:00)
[2021-09-29] MEDS: MULTIVITAMIN with MINERAL TABLET. PO SCH (08:44)
[2021-09-29] MEDS: LACTOBACILLUS RHAMNOSUS GG 1 CAPSULE. PO SCH (08:44)
[2021-09-29] MEDS: CHOLECALCIFEROL (VITAMIN D3) 5,000 UNIT CAPSULE PO SCH (08:44)
[2021-09-29] MEDS: NAPROXEN 500 MG TABLET PO SCH ×2 (08:46→20:59)
[2021-09-29] MEDS: HEPARIN for SUB-Q USE 5,000 UNIT/ML VIAL. SQ SCH ×2 (08:46→21:03)
--- NOTE | 2021-09-29 09:10 | NUR ---
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
[2021-09-29 11:00] VITALS: BP 111/40
--- NOTE | 2021-09-29 11:00 | NUR ---
Procedure: Following complete explanation of the PICC procedure including the indications, risks, and potential complications, informed consent was obtained. The possibility for infection was discussed along with signs, symptoms, and prevention. All the questions were answered. Written and verbal patient education was provided. Hand hygiene performed. Standardized central line checklist was utilized. The patient was placed in the supine position, the arm was prepped with chlorhexidine and patient draped with maximum sterile barrier. 4 mL 1% lidocaine was infiltrated into the skin to provide local anesthesia. A thorough assessment of right upper extremity completed. Using real-time ultrasound guidance and standardized micro puncture set, the basilic vein was punctured and a peel away sheath was placed using the modified Seldinger technique. A tip location device was used to ensure adequate catheter placement but didn't show peaked P waves so chest x-ray ordered. The catheter was secured using a securement device and an antimicrobial patch was applied directly on the insertion site followed by a transparent dressing. All ports withdraw blood and flush without resistance. Patient tolerated the procedure without apparent complication(s). Single Lumen Power PICC placement successful but chest x-ray shows that catheter needs repositioning. Placement verified by chest x-ray. Complications: IR consulted to assist with repositioning PICC line.
--- NOTE | 2021-09-29 12:43 | RAD ---
EXAM: XR CHEST 1V 09/29/2021 10:56 AM CLINICAL INDICATION: Confirm PICC line placement right arm COMPARISON: Chest radiograph 03/18/2017 TECHNIQUE: AP view of the chest FINDINGS: The patient is rotated. There is a right PICC with tip extending cranially in the region o f the right internal jugular vein. The cardiac silhouette is prominent. The lungs are adequately expa nded. There is mild bibasilar atelectasis. No pneumothorax. IMPRESSION: Right PICC malpositioned with tip extending cranially in the neck. Recommend repositioni ng and repeat imaging to confirm position. FOR INTERNAL CODING PURPOSES Critical result: Findings discussed with the patient's nurse at 09/29/2021 12:35PM. RESULT CODE: (C) Electronically signed by: Magi Land MD (09/29/2021 12:40 PM) [id number]
--- NOTE | 2021-09-29 13:59 | PDOC ---
Infectious Disease Note Subjective: Subjective Patient complains of pain in the right knee Patient has severe headache which woke her up from sleep at 4 AM this morning is getting anxious with too much information and is getting overwhelmed Denies fever, vomiting, shortness of breath, diarrhea, abdominal pain, rash Otherwise as above Vital Signs: Vital Signs Vital Signs Date Time Temp Pulse Resp B/P (MAP) Pulse Ox O2 Delivery O2 Flow Rate FiO2 09/29/21 11:00 98.9 96 14 111/40 (63) 93 Room Air 98.9 Physical Exam: PHYSICAL EXAM GENERAL: Alert, oriented female, not in distress. HEENT: anicteric, no thrush NECK: Supple, no JVP, LUNGS: Clear. HEART: S1, S2, regular. ABDOMEN: Soft, nontender, no organomegaly. EXTREMITIES: Left lower extremity is unremarkable. Right lower extremity appears to have a joint fluid. The knot she is saying is there on the medial side, which is actually smaller and she admits to have improved compared to the worst knot, still she is not able to put weight on it. There is no erythema, induration. There is no open wound or drainage. NEUROLOGIC: Alert, awake, and appropriate. No focal neurologic deficit. Medications: Inpatient Meds: Medications reviewed. Labs: Micro Synovial aspirate MRSE, daptomycin susceptible and finegoldia Objective: Assessment: RT TKA PJI S/P Aspirate WBC 95965,Cult staph epidermidis MRSE ( linezolid, tetra sensitive) CT RLE Large joint effusion, the upper aspect of which extends in continuity to the chronic nonunion distal femoral shaft fracture. 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 difficile colitis .Risk of future infection including secondary superinfection and with MDRO organisms, sepsis etc. discussed Antibiotics will not improve her underlying pain or mobility She states that she has too many medical problems and does not want to undergo surgery at this time She verbalizes understanding about treatment plan as above. All questions answered to her satisfaction. Cont daptomycin. Headache appears less likely from daptomycin We will restart ceftriaxone 2 g IV daily IV infusion. Limited choices for finegoldia infection. Discussed with patient and she is agreeable with the plan Monitor weekly CK along with other labs PICC line PT and OT as tolerated D/W DONNA RANKIN MD September 29, 2021 13:59
[2021-09-29 15:00] VITALS: BP 140/51
[2021-09-29 19:00] VITALS: BP 126/49
[2021-09-29] MEDS: DOCUSATE SODIUM 100 MG CAPSULE. PO SCH (21:00)
[2021-09-29] MEDS: DAPTOmycin (GENERIC) IVPB 380 MG in IV NORMAL SALINE 50ML 50 ML IV SCH (21:01)
[2021-09-29 23:00] VITALS: BP 111/54
[2021-09-30 03:00] VITALS: BP 129/56
[2021-09-30] MEDS: LEVOTHYROXINE 88 MCG TABLET PO SCH (06:02)
[2021-09-30 06:33] LABS: HEMATOCRIT 26.8 % (36.0-47.0); HEMOGLOBIN 8.2 g/dL (12.0-15.5); RED BLOOD COUNT 3.74 x10^6/uL (3.50-5.40); RED CELL DISTRIBUTION WIDTH 16.7 % (11.5-14.5); WHITE BLOOD COUNT 12.4 x10^3/uL (4.0-11.0)
[2021-09-30 07:00] VITALS: BP 89/65
[2021-09-30] MEDS: FERROUS SULFATE 325 MG TABLET. PO SCH (08:00)
--- NOTE | 2021-09-30 08:32 | RAD ---
Repositioned right upper extremity PICC line 09/29/2021 Discussion: Fluoroscopic evaluation demonstrates pre-existing right upper extremity PICC line was dem onstrated to be directed cephalad into the right internal jugular vein. The catheter was flushed with normal saline, resulting in repositioning the catheter tip now appropriately positioned at the cavoa trial junction. Total fluoroscopy time 0.5 minutes Dose area product 2 Gycm2 Impression: Fluoroscopically guided guided repositioning of right upper extremity PICC line with tip now at the cavoatrial junction Electronically signed by: Celio Buenrostro MD (09/30/2021 8:29 AM) [id number]
[2021-09-30] MEDS: MULTIVITAMIN with MINERAL TABLET. PO SCH (09:19)
[2021-09-30] MEDS: LACTOBACILLUS RHAMNOSUS GG 1 CAPSULE. PO SCH (09:19)
[2021-09-30] MEDS: CHOLECALCIFEROL (VITAMIN D3) 5,000 UNIT CAPSULE PO SCH (09:19)
[2021-09-30] MEDS: NAPROXEN 500 MG TABLET PO SCH ×2 (09:19→20:37)
[2021-09-30] MEDS: HEPARIN for SUB-Q USE 5,000 UNIT/ML VIAL. SQ SCH ×2 (09:28→20:55)
--- NOTE | 2021-09-30 10:35 | SNU/HH DC ---
DISCHARGE ORDERS DISCHARGE INFORMATION: FINAL DIAGNOSIS Problems Medical Problems: (1) Difficulty walking Status: Acute (2) Right knee pain Status: Acute CONDITION ON DISCHARGE: Stable CODE STATUS: Code Status: Full [facility]: SNF STAY <30 DAYS: Yes HOSPICE: HOSPICE: No HOSPICE EVAL & TREAT: No LTAC: ADMIT TO LTAC: No POST DISCHARGE ORDERS: ACTIVITY ORDERS: Activity as tolerated WEIGHT BEARING STATUS: No restrictions DIET AFTER DISCHARGE: Cardiac WOUND/INCISION CARE: No wound care needed OTHER ORDERS: IV antibiotics per infectious disease recommendati TREATMENT/EQUIPMENT ORDERS: ADAPTIVE EQUIPMENT NEEDED: Four wheeled walker, Wheelchair Physical Therapy For: Evalulation/Treatment Occupational Therapy For: Evaluation/Treatment DISCHARGE MEDICATIONS: Home Meds Active Scripts Sennosides/Docusate Sodium (Colace 2-in-1 Tablet) 1 Each Tablet, 1 EACH PO QHS PRN for CONSTIPATION, #20 TAB Prov:GODWIN DELVALLE DO 09/14/18 Hydrocortisone Acetate (ANUSOL-HC) 25 Mg Supp.rect, 1 SUPP RC BID PRN for SEE COMMENTS, #14 SUPP For rectal bleeding due to internal hemorrhoids Prov:GODWIN DELVALLE DO 09/14/18 Metronidazole (FLAGYL) 500 Mg Tablet, 1 TAB PO BID, #14 TAB Prov:KAMLA HANKS MD 10/25/17 Ondansetron (ONDANSETRON ODT) 4 Mg Tab.rapdis, 4 MG PO PRN Q8HRS PRN for N AUSEA/VOMITING, #30 TAB-CAP 1 Refill Prov:SAMEER WOLFF MD 05/02/17 Hydromorphone Hcl (DILAUDID) 4 Mg Tablet, 4 MG PO PRN Q4HRS PRN for SEVERE PAIN for 30 Days, #90 TAB Prov:SAMEER WOLFF MD 05/02/17 Alprazolam (XANAX) 0.25 Mg Tablet, 0.25 MG PO HS for 30 Days, #30 TAB 0 Refills Prov:SAMEER WOLFF MD 05/02/17 Famotidine (FAMOTIDINE) 20 Mg Tablet, 20 MG PO BID for 30 Days, #60 TAB Prov:RM KWAN MD 03/22/17 Ferrous Sulfate (FEOSOL) 325 Mg Tablet, 325 MG PO BID for 30 Days, #60 TAB Prov:RM KWAN MD 03/22/17 Polyethylene Glycol 3350 (MIRALAX) 17 Gm Powd.pack, 1 PACKET PO DAILY, #30 PACKET 3 Refills Prov:KAMLA HANKS MD 12/12/16 Magnesium Hydroxide (MILK OF MAGNESIA) 2,400 Mg/10 Ml Oral.susp, 2400 MG PO DAILY for 30 Days, [facility] Prov:KAMLA HANKS MD 12/12/16 Reported Medications Polyethylene Glycol 3350 (MIRALAX) 17 Gm Powd.pack, 1 PACKET PO PRN DAILY PRN for CONSTIPATION for 2 Days, PACKET 0 Refills dissolve in water 09/23/21 Cholecalciferol (Vitamin D3) (Vitamin D3 ) 125 Mcg Capsule, 125 MCG PO DAILY for SUPPLEMENT, CAP 5,000 UNITS = 125 MCG 09/23/21 Calcium Carbonate (TUMS) 200 Mg Tab.chew, 200 MG PO PRN Q4HRS PRN for GERD, TAB.CHEW 09/23/21 Amlodipine Besylate (AMLODIPINE BESYLATE) 2.5 Mg Tablet, 2.5 MG PO DAILY for HTN, TAB 09/23/21 Hydromorphone Hcl (DILAUDID) 2 Mg Tablet, 1 TAB PO PRN Q4-6HRS PRN for pain MDD 2 Tablet(s) for 5 Days, #10 TAB 0 Refills 09/23/21 Acetaminophen (TYLENOL) 325 Mg Tablet, 2 TAB PO PRN Q4HRS for arthritis, #30 TAB 09/23/21 Naproxen (NAPROXEN) 500 Mg Tablet.dr, 1 TAB PO BID for pain, #60 TAB 2 Refills 09/23/21 Levothyroxine Sodium (LEVOTHYROXINE SODIUM) 88 Mcg Tablet, 1 TAB PO DAILY for thyriod, #30 TAB 5 Refills 09/23/21 Hydrocodone/Ibuprofen (HYDROCODONE-IBUPROFEN 7.5-200) 1 Each Tablet, 2 TAB PO PRN Q4HRS PRN for PAIN, TAB 0 Refills 04/22/17 Acetaminophen (TYLENOL) 325 Mg Tablet, 1000 MG PO PRN Q4HRS PRN for PAIN, TAB 04/22/17 Calcium Citrate/Vitamin D3 (Calcium Citrate +Vit D3 Tablet) 1 Each Tablet, 2 TAB PO DAILY, TAB 04/22/17 Calcium Carb & Cit/Vitamin D3 (CALCIUM + D3 ER TABLET) 1 Each Tablet.er, 1 EACH PO, TAB.SR 04/22/17 Docusate Sodium (DOCUSATE SODIUM) 100 Mg Capsule, 1 CAP PO HS, #30 CAP 12/29/16 Lactobacillus Combo No.11 (PROBIOTIC) 1 Each Cap.sprink, 1 EACH PO DAILY 08/30/16 Multivits-Min/Iron/FA/Lutein (Centrum Silver Women Tablet) 1 Each Tablet, 1 EACH PO DAILY 09/26/14 Felodipine (FELODIPINE ER) 5 Mg Tab.er.24h, 1 TAB PO DAILY, #30 TAB 5 Refills 09/26/14 Levothyroxine Sodium (LEVOTHYROXINE SODIUM) 75 Mcg Tablet, 75 MCG PO DAILYAC for THYROID SUPPLEMENT, #30 TAB 0 Refills 11/10/13 Discontinued Scripts Ciprofloxacin Hcl (CIPRO) 500 Mg Tablet, 1 TAB PO BID, #14 TAB Prov:KAMLA HANKS MD 10/25/17 GIN SCHRADER III DO September 30, 2021 10:35
[2021-09-30] MEDS ORDERED: HYDR2TAB31 PO (10:37)
--- NOTE | 2021-09-30 10:38 | SNU/HH DC ---
DISCHARGE ORDERS DISCHARGE INFORMATION: FINAL DIAGNOSIS Problems Medical Problems: (1) Difficulty walking Status: Acute (2) Right knee pain Status: Acute CONDITION ON DISCHARGE: Stable CODE STATUS: Code Status: Full JAIL: SNF STAY <30 DAYS: Yes HOSPICE: HOSPICE: No HOSPICE EVAL & TREAT: No LTAC: ADMIT TO LTAC: No POST DISCHARGE ORDERS: ACTIVITY ORDERS: Activity as tolerated WEIGHT BEARING STATUS: No restrictions DIET AFTER DISCHARGE: Cardiac WOUND/INCISION CARE: No wound care needed OTHER ORDERS: IV antibiotics per infectious disease recommendati TREATMENT/EQUIPMENT ORDERS: ADAPTIVE EQUIPMENT NEEDED: Four wheeled walker, Wheelchair Physical Therapy For: Evalulation/Treatment Occupational Therapy For: Evaluation/Treatment DISCHARGE MEDICATIONS: Home Meds Active Scripts Hydromorphone Hcl (DILAUDID) 2 Mg Tablet, 1 TAB PO QIDPRN PRN for pain MDD 4 Tablet(s) for 5 Days, #20 TAB 0 Refills Prov:GIN SCHRADER III DO 09/30/21 Sennosides/Docusate Sodium (Colace 2-in-1 Tablet) 1 Each Tablet, 1 EACH PO QHS PRN for CONSTIPATION, #20 TAB Prov:GODWIN DELVALLE DO 09/14/18 Hydrocortisone Acetate (ANUSOL-HC) 25 Mg Supp.rect, 1 SUPP RC BID PRN for SEE COMMENTS, #14 SUPP For rectal bleeding due to internal hemorrhoids Prov:GODWIN DELVALLE DO 09/14/18 Metronidazole (FLAGYL) 500 Mg Tablet, 1 TAB PO BID, #14 TAB Prov:KAMLA HANKS MD 10/25/17 Ondansetron (ONDANSETRON ODT) 4 Mg Tab.rapdis, 4 MG PO PRN Q8HRS PRN for NAUSEA/VOMITING, #30 TAB-CAP 1 Refill Prov:SAMEER WOLFF MD 05/02/17 Hydromorphone Hcl (DILAUDID) 4 Mg Tablet, 4 MG PO PRN Q4HRS PRN for SEVERE PAIN for 30 Days, #90 TAB Prov:SAMEER WOLFF MD 05/02/17 Alprazolam (XANAX) 0.25 Mg Tablet, 0.25 MG PO HS for 30 Days, #30 TAB 0 Refills Prov:SAMEER WOLFF MD 05/02/17 Famotidine (FAMOTIDINE) 20 Mg Tablet, 20 MG PO BID for 30 Days, #60 TAB Prov:RM KWAN MD 03/22/17 Ferrous Sulfate (FEOSOL) 325 Mg Tablet, 325 MG PO BID for 30 Days, #60 TAB Prov:RM KWAN MD 03/22/17 Polyethylene Glycol 3350 (MIRALAX) 17 Gm Powd.pack, 1 PACKET PO DAILY, #30 PACKET 3 Refills Prov:KAMLA HANKS MD 12/12/16 Magnesium Hydroxide (MILK OF MAGNESIA) 2,400 Mg/10 Ml Oral.susp, 2400 MG PO DAILY for 30 Days, MISC Prov:KAMLA HANKS MD 12/12/16 Reported Medications Polyethylene Glycol 3350 (MIRALAX) 17 Gm Powd.pack, 1 PACKET PO PRN DAILY PRN for CONSTIPATION for 2 Days, PACKET 0 Refills dissolve in water 09/23/21 Cholecalciferol (Vitamin D3) (Vitamin D3 ) 125 Mcg Capsule, 125 MCG PO DAILY for SUPPLEMENT, CAP 5,000 UNITS = 125 MCG 09/23/21 Calcium Carbonate (TUMS) 200 Mg Tab.chew, 200 MG PO PRN Q4HRS PRN for GERD, TAB.CHEW 09/23/21 Amlodipine Besylate (AMLODIPINE BESYLATE) 2.5 Mg Tablet, 2.5 MG PO DAILY for HTN, TAB 09/23/21 Hydromorphone Hcl (DILAUDID) 2 Mg Tablet, 1 TAB PO PRN Q4-6HRS PRN for pain MDD 2 Tablet(s) for 5 Days, #10 TAB 0 Refills 09/23/21 Acetaminophen (TYLENOL) 325 Mg Tablet, 2 TAB PO PRN Q4HRS for arthritis, #30 TAB 09/23/21 Naproxen (NAPROXEN) 500 Mg Tablet.dr, 1 TAB PO BID for pain, #60 TAB 2 Refills 09/23/21 Levothyroxine Sodium (LEVOTHYROXINE SODIUM) 88 Mcg Tablet, 1 TAB PO DAILY for thyriod, #30 TAB 5 Refills 09/23/21 Hydrocodone/Ibuprofen (HYDROCODONE-IBUPROFEN 7.5-200) 1 Each Tablet, 2 TAB PO PRN Q4HRS PRN for PAIN, TAB 0 Refills 04/22/17 Acetaminophen (TYLENOL) 325 Mg Tablet, 1000 MG PO PRN Q4HRS PRN for PAIN, TAB 04/22/17 Calcium Citrate/Vitamin D3 (Calcium Citrate +Vit D3 Tablet) 1 Each Tablet, 2 TAB PO DAILY, TAB 04/22/17 Calcium Carb & Cit/Vitamin D3 (CALCIUM + D3 ER TABLET) 1 Each Tablet.er, 1 EACH PO, TAB.SR 04/22/17 Docusate Sodium (DOCUSATE SODIUM) 100 Mg Capsule, 1 CAP PO HS, #30 CAP 12/29/16 Lactobacillus Combo No.11 (PROBIOTIC) 1 Each Cap.sprink, 1 EACH PO DAILY 08/30/16 Multivits-Min/Iron/FA/Lutein (Centrum Silver Women Tablet) 1 Each Tablet, 1 EACH PO DAILY 09/26/14 Felodipine (FELODIPINE ER) 5 Mg Tab.er.24h, 1 TAB PO DAILY, #30 TAB 5 Refills 09/26/14 Levothyroxine Sodium (LEVOTHYROXINE SODIUM) 75 Mcg Tablet, 75 MCG PO DAILYAC for THYROID SUPPLEMENT, #30 TAB 0 Refills 11/10/13 Discontinued Scripts Ciprofloxacin Hcl (CIPRO) 500 Mg Tablet, 1 TAB PO BID, #14 TAB Prov:KAMLA HANKS MD 10/25/17 GIN SCHRADER III DO September 30, 2021 10:38
--- NOTE | 2021-09-30 10:40 | PDOC ---
[employer] PROGRESS NOTE Date of Service DOS: DATE: 09/30/21 TIME: 10:38 Chief Complaint Chief Complaint Right knee pain Hammertoes Bunions SIRS Inability to walk Hypertension next hyperlipidemia Osteoarthritis Hypothyroidism Obesity Anemia Malnutrition History of Present Illness History of Present Illness 09/30/2021 Patient seen and examined Discussed with RN Discussed with case management Chart reviewed The patient has been accepted at [facility] Will discharge to jail with IV daptomycin per infectious disease recommendations 09/27/2021 Patient seen and examined Discussed with RN Chart reviewed Discussed with case management Infectious disease and orthopedics are following 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 Her symptoms have been progressive over the last week and she actually was seen outpatient for some medial swelling that comes and goes. She lives alone, and notes for the last 48 hours prior to coming to ED she has been unable to bear weight on the right lower extremity. She feels that about to give out and does have pain that over a week ago was inferior to patella but now is superior to her patella and medially and notices more swelling and warmth superior medially in the knee. When she rests lays down and sits down the pain resolves but the pain is unbearable she sees stars it is 10 out of 10 when she attempts to bear weight. No falls or other trauma. Historically she notes total knee replacement electively in 2006 at [facility]. She was treated with transfemoral nail for a femur fracture with Dr. Fuchs in 2016 and had a spontaneous periprosthetic fracture after that and has previously had some serous drainage from her knee over 5 years ago and has dealt with some intermittent chronic pain for which she takes oral Dilaudid outpatient. She notes her primary care physician has noted elevated inflammatory markers for quite some time. WBC 12.8, Hb 10, platelets of 97, sed rate 49, CRP 55.2, NA 134, K4.5, BUN 27, CR 1.2, glucose 118, albumin 2.6, calcium 8.8, bilirubin 0.3, AST 15, ALT 15, alkaline phosphatase 99. Right knee radiograph with intact right knee arthroplasty and intact femoral intramedullary nail, knee joint effusion. Right lower extremity venous Doppler negative for DVT 09/24: CT of right lower extremity reviewed concerning for chronic distal femur fracture possible inflammation related to infection or other. Large effusion noted tracking up to the hardware in the femur. Discussed with I ED and IR joint aspiration with cell count culture and AFB would be appropriate as patient has elected to not even consider the possibility of surgery. Still with severe pain with even attempting to bear weight that starts in the suprapatellar area of her knee radiating up into her right hip. 09/25: Status post joint fluid aspiration lab results pending from this. She still having significant pain with ambulation. She had a good conversation with orthopedic surgery regarding potential surgical options. 09/26: Right knee joint fluid with over 70,000 PMNs and gram-positive cocci Gram stain. Started on Rocephin and daptomycin empirically by infectious diseases. She is going to meet with orthopedic surgery discuss further surgical options but her overall goal is to become ambulatory cannot go back home currently she is not ambulating well enough to do so and there is a plan to have cultures come back and guide antibiotic therapy currently will need IV antibiotics long-term with infectious disease. Vitals/I&O Vitals/I&O: Vital Signs Date Time Temp Pulse Resp B/P (MAP) Pulse Ox O2 Delivery O2 Flow Rate FiO2 09/30/21 09:23 99 115/84 09/30/21 08:00 Room Air 09/30/21 07:00 98.1 18 91 98.1 I & O 09/29/21 09/29/21 09/30/21 15:00 23:00 07:00 Output Total 400 ml Balance -400 ml Physical Exam Physical Exam: GENERAL: Alert, oriented female, not in distress. HEENT: anicteric, no thrush NECK: Supple, no JVP, LUNGS: Clear. HEART: S1, S2, regular. ABDOMEN: Soft, nontender, no organomegaly. EXTREMITIES: Left lower extremity is unremarkable. Right lower extremity appears to have a joint fluid. The knot she is saying is there on the medial side, which is actually smaller and she admits to have improved compared to the worst knot, still she is not able to put weight on it. There is no erythema, induration. There is no open wound or drainage. NEUROLOGIC: Alert, awake, and appropriate. No focal neurologic deficit. General: Alert, Oriented X3, Cooperative, mild distress Lungs: Clear Abdomen: Normal bowel sounds, Soft, No tenderness, No hepatosplenomegaly, No masses Extremities: No clubbing, No cyanosis, No edema, Normal pulses, Other (Right knee with patellar scarring superior medial partially reducible effusion is warm tender.) Skin: Other (Right knee medially warm) Labs Labs: Laboratory Tests Test 09/30/21 06:00 White Blood Count 12.4 x10^3/uL (4.0-11.0) Red Blood Count 3.74 x10^6/uL (3.50-5.40) Hemoglobin 8.2 g/dL (12.0-15.5) Hematocrit 26.8 % (36.0-47.0) Mean Corpuscular Volume 72 fL (79-100) Mean Corpuscular Hemoglobin 22 pg (25-35) Mean Corpuscular Hemoglobin Concent 31 g/dL (31-37) Red Cell Distribution Width 16.7 % (11.5-14.5) Platelet Count 334 x10^3/uL (140-400) Assessment and Plan Assessmemt and Plan Problems Medical Problems: (1) Difficulty walking Status: Acute (2) Right knee pain Status: Acute MRSE knee infection Right knee pain Hammertoes Bunions SIRS Inability to walk Hypertension next hyperlipidemia Osteoarthritis Hypothyroidism Obesity Anemia Malnutrition Plan Continue IV antibiotics Wound care Hope to discharge to [facility] today RT TKA PJI S/P Aspirate WBC 83520,Cult staph epidermidis MRSE ( linezolid, tetra sensitive) CT RLE Large joint effusion, the upper aspect of which extends in continuity to the chronic nonunion distal femoral shaft fracture. 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 difficile colitis .Risk of future infection including secondary superinfection and with MDRO organisms, sepsis etc. discussed Antibiotics will not improve her underlying pain or mobility She states that she has too many medical problems and does not want to undergo surgery at this time She verbalizes understanding about treatment plan as above. All questions answered to her satisfaction. Cont daptomycin. Headache appears less likely from daptomycin We will restart ceftriaxone 2 g IV daily IV infusion. Limited choices for finegoldia infection. Discussed with patient and she is agreeable with the plan Monitor weekly CK along with other labs PICC line PT and OT as tolerated Comment Review of Relevant I have reviewed the following items jose antonio (where applicable) has been applied. Justifications for Admission Other Justification GIN SCHRADER III DO September 30, 2021 10:40
[2021-09-30 11:00] VITALS: BP 96/47
[2021-09-30] MEDS: ONDANSETRON ODT 4 MG TAB.RAPDIS. PO PRN (12:03)
--- NOTE | 2021-09-30 12:15 | PDOC ---
Infectious Disease Note Subjective: Subjective Patient feels better today Right knee pain comes and goes depending on her activity level Tolerating IV daptomycin and ceftriaxone well Awaiting transfer to [facility] tomorrow Denies fever, vomiting, shortness of breath, diarrhea, abdominal pain, rash Otherwise as above Sister at bedside Vital Signs: Vital Signs Vital Signs Date Time Temp Pulse Resp B/P (MAP) Pulse Ox O2 Delivery O2 Flow Rate FiO2 09/30/21 11:00 98.2 55 16 96/47 (63) 96 Room Air 98.2 Physical Exam: PHYSICAL EXAM GENERAL: Alert, oriented female, not in distress. HEENT: anicteric, no thrush NECK: Supple, no JVP, LUNGS: Clear. HEART: S1, S2, regular. ABDOMEN: Soft, nontender, no organomegaly. EXTREMITIES: Left lower extremity is unremarkable. Right lower extremity appears to have a joint fluid. There is no erythema, Mild warmth present. There is no open wound or drainage. NEUROLOGIC: Alert, awake, and appropriate. No focal neurologic deficit. PICC line clean Medications: Inpatient Meds: Medications reviewed. Labs: Lab Laboratory Tests Test 09/30/21 06:00 White Blood Count 12.4 x10^3/uL (4.0-11.0) Red Blood Count 3.74 x10^6/uL (3.50-5.40) Hemoglobin 8.2 g/dL (12.0-15.5) Hematocrit 26.8 % (36.0-47.0) Mean Corpuscular Volume 72 fL (79-100) Mean Corpuscular Hemoglobin 22 pg (25-35) Mean Corpuscular Hemoglobin Concent 31 g/dL (31-37) Red Cell Distribution Width 16.7 % (11.5-14.5) Platelet Count 334 x10^3/uL (140-400) Micro Synovial aspirate MRSE, daptomycin susceptible and finegoldia RUN DATE: 09/30/21 [facility] LAB *LIVE* PAGE 1 RUN TIME: 842 Specimen Inquiry PATIENT: RAE HORVATH ACCT: [id number] LOC: [address] [place] [address] U: [id number] AGE/SX: 86/F ROOM: 414 RE09/22/[address]: MICHELLE LAST MD : [id number] BED: 1 DIS: STATUS: ADM IN TLOC: - SPEC #: [id number] KILEY: 09/24/21 STATUS: COMP REQ #: [id number] RECD: 09/25/[address]: MICHELLE LAST MD SOURCE: KNEE ENTR: 09/25/21 [facility] DR: MONIKA RUSHING MD SPDESC: KADEN SUAREZ Jr., DARCY L MD ORDERED: ARIELLE/AEROBIC CUL COMMENTS: RIGHT KNEE FLUID Procedure Result GRAM STAIN-AER ARIELLE Final PMNS (WBCS): MANY SQUAMOUS EPI CELL: NONE SEEN GRAM POS COCCI: FEW CULTURE ANAEROBIC/AEROBIC Final FEW STAPHYLOCOCCUS EPIDERMIDIS MRS on 09/27/21 at 1146. MODERATE FINEGOLDIA MAGNA on 09/29/21 at 1154. Testing performed by [address], [place] [address] director medical surgical: Yumiko Crews MD Organism 1 STAPHYLOCOCCUS EPIDERMIDIS MRS Organism 2 FINEGOLDIA MAGNA 1. STAPHYLOCOCCUS EPIDERMIDIS MRS Target Route Dose RX AB Cost M.I.C. IQ ------ ----- ------ -- ------ -- ------- ------ AZITHROMYCIN R >4 DAPTOMYCIN S <=0.5 VANCOMYCIN S 1 IND CLINDAMYCIN NEG <=4/0.5 TRIMETH/SULFA R >2/38 LEVOFLOXACIN R >4 * CLINDAMYCIN S <=0.25 LINEZOLID S <=1 ERYTHROMYCIN R >4 PENICILLIN R >2 TETRACYCLINE S <=4 RIFAMPIN S <=1 OXACILLIN R >2 GENTAMICIN S <=4 Objective: Assessment: RT TKA PJI S/P Aspirate WBC 43631,Cult staph epidermidis MRSE ( linezolid, tetra sensitive) CT RLE Large joint effusion, the upper aspect of which extends in continuity to the chronic nonunion distal femoral shaft fracture. 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 Severe DJD H/O 3 surgeries Rt knee [id number] Osteoporosis Plan: Plan of Care Ortho recommends surgery versus observation on suppressive antibiotic We discussed and I agree that if she chooses lifelong suppressive antibiotic instead of surgical procedure by revision specialist,risk of failure remains as hardware remains in place Along with extensive involvement as per abnormal CT RLE.She will also be at risk of recurrent infection Side effects discussed with patient including C. difficile colitis .Risk of future infection including secondary superinfection and with MDRO organisms, sepsis etc. discussed Antibiotics will not improve her underlying pain or mobility She states that she has too many medical problems and does not want to undergo surgery at this time She verbalizes understanding about treatment plan as above. All questions answered to her satisfaction. Cont daptomycin and ceftriaxone 2 g IV daily IV infusion. 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 Cerda at [facility] Per her discussion with Dr. Akbar orthopedics at [facility] Discussed with sister at bedside at length D/W DONNA RANKIN MD September 30, 2021 12:15
[2021-09-30 15:00] VITALS: BP 124/55
[2021-09-30] MEDS: HYDROmorphone 2 MG TABLET PO PRN ×2 (15:45→23:32)
[2021-09-30] MEDS ORDERED: LOPERAMIDE 2 MG CAPSULE PO PRN (17:15)
[2021-09-30 19:00] VITALS: BP 118/55
--- NOTE | 2021-09-30 19:05 | NUR ---
COVID VACCINATION CARD COPIED AND PLACED IN CHART.
[2021-09-30] MEDS: DOCUSATE SODIUM 100 MG CAPSULE. PO SCH (20:38)
[2021-09-30] MEDS: DAPTOmycin (GENERIC) IVPB 380 MG in IV NORMAL SALINE 50ML 50 ML IV SCH (20:38)
[2021-09-30 23:00] VITALS: BP 112/58
[2021-10-01] MEDS: ONDANSETRON ODT 4 MG TAB.RAPDIS. PO PRN (02:38)
[2021-10-01 03:00] VITALS: BP 114/83
[2021-10-01] MEDS: LEVOTHYROXINE 88 MCG TABLET PO SCH (05:44)
[2021-10-01 07:00] VITALS: BP 118/60
[2021-10-01] MEDS: MULTIVITAMIN with MINERAL TABLET. PO SCH (08:51)
[2021-10-01] MEDS: NAPROXEN 500 MG TABLET PO SCH (08:51)
[2021-10-01] MEDS: CHOLECALCIFEROL (VITAMIN D3) 5,000 UNIT CAPSULE PO SCH (08:51)
[2021-10-01 08:52] VITALS: BP 118/60
[2021-10-01] MEDS: LACTOBACILLUS RHAMNOSUS GG 1 CAPSULE. PO SCH (08:52)
[2021-10-01] MEDS: FERROUS SULFATE 325 MG TABLET. PO SCH (08:52)
[2021-10-01] MEDS: HEPARIN for SUB-Q USE 5,000 UNIT/ML VIAL. SQ SCH (09:00)
--- NOTE | 2021-10-01 10:30 | PDOC ---
[employer] PROGRESS NOTE Date of Service DOS: DATE: 10/01/21 TIME: 10:28 Chief Complaint Chief Complaint Right knee pain Hammertoes Bunions SIRS Inability to walk Hypertension next hyperlipidemia Osteoarthritis Hypothyroidism Obesity Anemia Malnutrition History of Present Illness History of Present Illness 10/01/2021 Patient on commode Discussed with RN Discussed with case management Chart reviewed Her discharge was held yesterday due to PCR pending She is scheduled to go to senior care later today 09/30/2021 Patient seen and examined Discussed with RN Discussed with case management Chart reviewed The patient has been accepted at [facility] Will discharge to senior care with IV daptomycin per infectious disease recommendations 09/27/2021 Patient seen and examined Discussed with RN Chart reviewed Discussed with case management Infectious disease and orthopedics are following 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 Her symptoms have been progressive over the last week and she actually was seen outpatient for some medial swelling that comes and goes. She lives alone, and notes for the last 48 hours prior to coming to ED she has been unable to bear weight on the right lower extremity. She feels that about to give out and does have pain that over a week ago was inferior to patella but now is superior to her patella and medially and notices more swelling and warmth superior medially in the knee. When she rests lays down and sits down the pain resolves but the pain is unbearable she sees stars it is 10 out of 10 when she attempts to bear weight. No falls or other trauma. Historically she notes total knee replacement electively in 2006 at [facility]. She was treated with transfemoral nail for a femur fracture with Dr. Fuchs in 2016 and had a spontaneous periprosthetic fracture after that and has previously had some serous drainage from her knee over 5 years ago and has dealt with some intermittent chronic pain for which she takes oral Dilaudid outpatient. She notes her primary care physician has noted elevated inflammatory markers for quite some time. WBC 12.8, Hb 10, platelets of 97, sed rate 49, CRP 55.2, NA 134, K4.5, BUN 27, CR 1.2, glucose 118, albumin 2.6, calcium 8.8, bilirubin 0.3, AST 15, ALT 15, alkaline phosphatase 99. Right knee radiograph with intact right knee arthroplasty and intact femoral intramedullary nail, knee joint effusion. Right lower extremity venous Doppler negative for DVT 09/24: CT of right lower extremity reviewed concerning for chronic distal femur fracture possible inflammation related to infection or other. Large effusion noted tracking up to the hardware in the femur. Discussed with I ED and IR joint aspiration with cell count culture and AFB would be appropriate as patient has elected to not even consider the possibility of surgery. Still with severe pain with even attempting to bear weight that starts in the suprapatellar area of her knee radiating up into her right hip. 09/25: Status post joint fluid aspiration lab results pending from this. She still having significant pain with ambulation. She had a good conversation with orthopedic surgery regarding potential surgical options. 09/26: Right knee joint fluid with over 70,000 PMNs and gram-positive cocci Gram stain. Started on Rocephin and daptomycin empirically by infectious diseases. She is going to meet with orthopedic surgery discuss further surgical options but her overall goal is to become ambulatory cannot go back home currently she is not ambulating well enough to do so and there is a plan to have cultures come back and guide antibiotic therapy currently will need IV antibiotics long-term with infectious disease. Vitals/I&O Vitals/I&O: Vital Signs Date Time Temp Pulse Resp B/P (MAP) Pulse Ox O2 Delivery O2 Flow Rate FiO2 10/01/21 08:52 87 118/60 10/01/21 08:10 Room Air 10/01/21 07:00 98.2 18 92 98.2 I & O 09/30/21 09/30/21 10/01/21 15:00 23:00 07:00 Intake Total 200 ml Balance 200 ml Physical Exam Physical Exam: GENERAL: Alert, oriented female, not in distress. HEENT: anicteric, no thrush NECK: Supple, no JVP, LUNGS: Clear. HEART: S1, S2, regular. ABDOMEN: Soft, nontender, no organomegaly. EXTREMITIES: Left lower extremity is unremarkable. Right lower extremity appears to have a joint fluid. There is no erythema, Mild warmth present. There is no open wound or drainage. NEUROLOGIC: Alert, awake, and appropriate. No focal neurologic deficit. PICC line clean General: No acute distress Lungs: Clear Abdomen: Normal bowel sounds, Soft, No tenderness, No hepatosplenomegaly, No masses Extremities: No clubbing, No cyanosis, No edema, Normal pulses, Other (Right knee with patellar scarring superior medial partially reducible effusion is warm tender.) Skin: Other (Right knee medially warm) Assessment and Plan Assessmemt and Plan Problems Medical Problems: (1) Difficulty walking Status: Acute (2) Right knee pain Status: Acute MRSE knee infection Right knee pain Hammertoes Bunions SIRS Inability to walk Hypertension next hyperlipidemia Osteoarthritis Hypothyroidism Obesity Anemia Malnutrition Plan probable discharge to senior care later today For now continue the following IV antibiotics Home meds DVT prophylaxis Full Wound care Comment Review of Relevant I have reviewed the following items jose antonio (where applicable) has been applied. Medications: Current Medications Medications (Trade) Dose Ordered Sig/Rosetta Route PRN Reason Start Time Stop Time Status Last Admin Dose Admin Loperamide HCl (Imodium) 2 mg PRN Q3HRS PRN PO DIARRHEA 09/30/21 17:15 09/30/21 17:28 Justifications for Admission Other Justification GIN SCHRADER III DO October 01, 2021 10:30
--- NOTE | 2021-10-01 11:31 | NUR ---
Patient picked up and transported via wheelchair by [facility] to facility. PICC line information sent with paperwork. Patient educated on discharge instructions. Verbalized understanding.
--- NOTE | 2021-10-02 22:10 | DS ---
DATE OF DISCHARGE: 10/01/2021 ADMISSION DIAGNOSIS: Right knee pain. DISCHARGE DIAGNOSIS: MRSE right knee infection, history of hammertoes, bunion, systemic inflammatory response syndrome, inability to walk, hypertension, osteoarthritis, hypothyroidism, obesity, anemia, malnutrition. CONSULT: Infectious Disease. 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 She was admitted with right knee pain. We consulted Infectious Disease. It was confirmed that she had MRSE of the right knee. She was placed on IV daptomycin. Yesterday, I saw and examined her. She was doing well. We discharged to [facility]. DISPOSITION: [facility]. ACTIVITY: As tolerated. DIET: Low sodium. DISCHARGE MEDICATIONS: Please see the MRAD. P.r.n. Dilaudid 2 mg q. 6 hours, Tylenol p.r.n., alprazolam 0.25 at bedtime, amlodipine 2.5 a day, calcium, vitamin D, docusate, Pepcid 20 b.i.d., felodipine 5 daily, iron, p.r.n. hydrocodone, Anusol p.r.n., Synthroid 75 a day, metronidazole 500 b.i.d., multiple vitamins, p.r.n. Zofran, polyethylene glycol p.r.n., p.r.n. senna and IV antibiotics per Infectious Disease recommendations. Total time 32 minutes. DESTINEE/MARY DR: Ben TID: [id number]
== END 2021-10-01 12:00 | DRG 559 ==
LOC: ER 22:57 → 2 NORTH 23:53 → 4 NORTH 09-28 17:55
PROVIDERS: ADMIT Internal Medicine; ATTEND Internal Medicine
PROC: 0S9C3ZX Drainage of Right Knee Joint, Percutaneous Approach, Diagnostic (ICD-10-PCS; principal; 2021-09-27)
PROC: 02HV33Z Insertion of Infusion Device into Superior Vena Cava, Percutaneous Approach (ICD-10-PCS; 2021-09-29)
PROC: B548ZZA Ultrasonography of Superior Vena Cava, Guidance (ICD-10-PCS; 2021-09-29)
PROC: 02HV33Z Insertion of Infusion Device into Superior Vena Cava, Percutaneous Approach (ICD-10-PCS; 2021-09-30)
PROC: B5181ZA Fluoroscopy of Superior Vena Cava using Low Osmolar Contrast, Guidance (ICD-10-PCS; 2021-09-30)
DX: T84.53XA Infection and inflammatory reaction due to internal right knee prosthesis, initial encounter (principal); S72.301A Unspecified fracture of shaft of right femur, initial encounter for closed fracture; E43 Unspecified severe protein-calorie malnutrition; S72.401A Unspecified fracture of lower end of right femur, initial encounter for closed fracture; R65.10 Systemic inflammatory response syndrome (SIRS) of non-infectious origin without acute organ dysfunction; D64.9 Anemia, unspecified; M25.461 Effusion, right knee; R26.2 Difficulty in walking, not elsewhere classified; D72.829 Elevated white blood cell count, unspecified; E03.9 Hypothyroidism, unspecified; E66.9 Obesity, unspecified; E78.00 Pure hypercholesterolemia, unspecified; E78.5 Hyperlipidemia, unspecified; I10 Essential (primary) hypertension; M19.011 Primary osteoarthritis, right shoulder; M20.40 Other hammer toe(s) (acquired), unspecified foot; M21.619 Bunion of unspecified foot; M47.9 Spondylosis, unspecified; M81.0 Age-related osteoporosis without current pathological fracture; Z90.49 Acquired absence of other specified parts of digestive tract; Z90.710 Acquired absence of both cervix and uterus; F41.9 Anxiety disorder, unspecified; G89.29 Other chronic pain; K21.9 Gastro-esophageal reflux disease without esophagitis; K59.00 Constipation, unspecified; Z68.31 Body mass index [BMI] 31.0-31.9, adult; Z88.2 Allergy status to sulfonamides; Z88.8 Allergy status to other drugs, medicaments and biological substances; Z91.018 Allergy to other foods; W18.39XA Other fall on same level, initial encounter; Y93.89 Activity, other specified; Y92.89 Other specified places as the place of occurrence of the external cause; Y99.8 Other external cause status
CPT/HCPCS: 36415; 36569; 36597; 71045; 73552; 73564; 73700; 76000; 80048; 80053; 82550; 82945; 83540; 83550; 84550; 85025; 85027; 85651; 86140; 86200; 86431; 87075; 87076; 87077; 87102; 87116; 87186; 87426; 89050; 89060; 93971; J0696; J0878; J1644; U0003; 97530-GO; 97530-GP; 97535-GO; 99285-25; G0378